=== PATIENT | female | born 1935 | race Caucasian/White ===

== ENCOUNTER 2018-06-09 15:43 | Observation (INO) | payer OTHER ==
--- NOTE | 2018-06-09 16:56 | PDOC ---
Attending Attestation - HPI HPI: 06/09/18 16:57 The patient is a 83 year old female, with a significant past medical history of iron deficiency anemia, HTN, GERD, COPD. failure to thrive, who presents to the emergency department with lab variance from [facility] (Hgb 6.6). The patient reports an approximate 20 pound weightloss over past 6 months which she attributes to adjusting to new food at the living facility. The patient denies chest pain, shortness of breath, headache and dizziness. The patient denies fever, chills, nausea, vomit, diarrhea and constipation. The patient denies dysuria, frequency, urgency and hematuria. Allergies: NKDA PCP - Dr. Amos - Physicial Exam PE: 06/09/18 17:23 GENERAL: The patient is in no acute distress. HEAD: Normal with no signs of trauma. EYES: (+) conjunctival pallor. PERRLA, EOMI, sclera anicteric, ENT: Ears normal, nares patent, oropharynx clear without exudates. Moist mucous membranes. NECK: Normal range of motion, supple without lymphadenopathy, JVD, or masses. LUNGS: Breath sounds equal, clear to auscultation bilaterally. No wheezes, and no crackles. HEART:Regular rate and rhythm, normal S1 and S2 without murmur, rub or gallop. ABDOMEN: Soft, nontender, normoactive bowel sounds. No guarding, no rebound. No masses palpable. EXTREMITIES: Normal range of motion, no edema. No clubbing or cyanosis. No erythema, or tenderness. NEUROLOGICAL: Cranial nerves II through XII grossly intact. Normal speech. No focal neurological deficits. MUSCULOSKELETAL: Back non-tender to palpation, no CVA tenderness SKIN: Warm, Dry, normal turgor, no rashes or lesions noted. <Alejandra Ng - Last Filed: 06/09/18 17:22> - Resident Resident Name: Hilary Espinoza - ED Attending Attestation I have performed the following: I have examined & evaluated the patient, The case was reviewed & discussed with the resident, I agree w/resident's findings & plan, Exceptions are as noted - Medical Decision Making 06/09/18 18:45 83 yo F resident of [facility] sent to the ER due to anemia Pt does not walk much so can not tell us if she is more weak No fevers or chills No chest pain She has a longstanding history of constipation, does not think she noticed dark stools HGB 6 at [facility] Will do: Labs Guiaic Will transfuse Will admit 06/09/18 18:47 Laboratory Tests 06/09/18 06/09/18 17:21 17:21 WBC 10.5 H Hgb 6.2 L* Hct 21.4 L Plt Count 397 INR 1.01 <Lisha De La Vega - Last Filed: 06/09/18 18:47> Attestations - Attestations 06/09/18 16:58 Documentation prepared by Alejandra Ng, acting as medical malpractice paralegal for Lisha De La Vega MD <Alejandra Ng - Last Filed: 06/09/18 17:22>
--- NOTE | 2018-06-09 17:37 | PDOC ---
History of Present Illness - General Chief Complaint: Revisit, Lab Variance Stated Complaint: ABNORMAL LABS Time Seen by Provider: 06/09/18 16:15 - History of Present Illness Initial Comments: 83yo F with PMH of HTN, GERD, Iron deficiency anemia, constipation, COPD, failure to thrive sent by [facility] for evaluation of low hemoglobin. Per paperwork, patient had low hemoglobin level of 6.8 today. Patient has no acute complaints. She is unable to remark very much on her medical history: "I don't remember medical things." She endorses no pain. Her last bowel movement was one week ago which is consistent with her history of constipation. She has not noted any blood, but does not remember the color of her stool. Patient does not know if she has ever been transfused before. She has had colonoscopies in the past and believes the results were normal. Patient reports a 20-30 pound weight loss over the past six months which she attributes to disliking the food at her custodial. Denies fevers, chills, chest pain, or shortness of breath. Past History - Past Medical History Allergies/Adverse Reactions: Allergies Allergy/AdvReac Type Severity Reaction Status Date / Time No Known Allergies Allergy Verified 06/09/18 15:55 Home Medications: Ambulatory Orders Albuterol 2.5/Ipratropium 0.5 [Duoneb -] 1 neb NEB Q8H PRN 06/09/18 Amlodipine Besylate 5 mg PO DAILY 06/09/18 Ascorbic Acid [Vitamin C -] 500 mg PO BID 06/09/18 Aspirin 81 mg PO DAILY 06/09/18 Carbamide Peroxide [Debrox] 15 ml DAILY 06/09/18 Cetirizine HCl [Allergy Relief] 10 mg PO DAILY 06/09/18 Docusate Sodium [Colace] 300 mg PO HS 06/09/18 Ferrous Sulfate 325 mg PO BID 06/09/18 Folic Acid 1 mg PO DAILY 06/09/18 Levothyroxine [Synthroid -] 25 mcg PO DAILY 06/09/18 Magnesium Hydroxide [Milk of Magnesia] 400 mg PO DAILY 06/09/18 Mirtazapine [Remeron -] 30 mg PO DAILY 06/09/18 Omeprazole Magnesium [Prilosec Otc] 20 mg PO DAILY 06/09/18 Polyethylene Glycol 3350 [Miralax 119 gm Btl -] 17 g PO BID 06/09/18 Potassium Chloride [K-Dur -] 20 meq BID 06/09/18 Sennosides [Senna] 8.6 mg PO DAILY 06/09/18 Sodium Chloride 1,000 mg PO Q6H 06/09/18 Anemia: Yes Cancer: Yes (esophagus) COPD: Yes GI Disorders: Yes HTN: Yes Thyroid Disease: Yes - Suicide/Smoking/Psychosocial Hx Smoking History: Never smoked Review of Systems - Review of Systems Comments:: Constitutional: no fever, +unintentional weight loss HEENT: no throat pain, no dysphagia Cardiovascular: no chest pain, no palpitations Respiratory: no cough, no shortness of breath Gastrointestinal: no abdominal pain, no nausea Genitourinary: no dysuria, no frequency Musculoskeletal: no myalgia, no arthralgia Skin: no rash, no itching Neurologic: no headache, no weakness *Physical Exam - Vital Signs Last Vital Signs Temp Pulse Resp BP Pulse Ox 98 F 87 18 105/75 100 06/09/18 16:02 06/09/18 16:02 06/09/18 16:02 06/09/18 16:02 06/09/18 16:02 - Physical Exam Comments: General: Awake, alert, and fully oriented, in no acute distress Head: No signs of trauma Eyes: EOMI, sclera anicteric ENT: Moist mucus membranes Neck: Normal ROM, supple Lungs: Rales present on the left, Clear to ascultation on the right Cardio: Regular rhythm, S1 and S2 present, grade 2 systolic murmur present Abdomen: Soft, nontender Extremities: Normal range of motion, Distal pulses present SKIN: Warm, Dry, normal turgor Neurologic: Cranial nerves II through XII grossly intact. Normal speech ED Treatment Course - LABORATORY CBC & Chemistry Diagram: 06/09/18 17:21 06/09/18 17:21 - RADIOLOGY Radiology Studies Ordered: Category Date Time Status CHEST X-RAY PORTABLE* [RAD] Stat Radiology 06/09/18 16:37 Taken Medical Decision Making - Medical Decision Making 83yo F with PMH of HTN, GERD, Iron deficiency anemia, constipation, COPD, failure to thrive sent by [facility] for evaluation of low hemoglobin. DDX including but not limited to low hemoglobin due to iron deficiency, GI bleed , malignancy CBC, CMP, TS, FOBT, Tpn EKG CXR 06/09/18 17:37 Hgb=6.2 with low MCV 2 units PRBC's ordered Mild leukocytosis, WBC=10.2 Tpn negative CXR without acute pathology, per radiology report FOBT negative Plan to admit 06/09/18 18:55 Discussed case with inpatient team who accepted patient for admission under Dr. Prado 06/09/18 19:56 Blood consent signed Second TS ordered Called patient's daughter, Jessica Paulson, ; awaiting callback Called sister, Kitty, ; awaiting callback 06/09/18 20:14 *DC/Admit/Observation/Transfer Diagnosis at time of Disposition: Low hemoglobin - Discharge Dispostion Condition at time of disposition: Guarded Decision to Admit order: Yes - Referrals - Patient Instructions - Post Discharge Activity
[2018-06-09 18:18] LABS: BASO % 1.3 % (0-2.0); EOS % 5.1 % (0-4.5); HEMATOCRIT 21.4 % (32.4-45.2); LYMPH % 14.8 % (8-40); MCHC 29.2 g/dl (32.0-36.0); MEAN CELL VOLUME 63.7 fl (80-96); MEAN PLT VOLUME 8.4 fl (7.5-11.1); MONO % 5.3 % (3.8-10.2); NEUT % 73.5 % (42.8-82.8); PLATELET COUNT 397 K/MM3 (134-434); RBC 3.35 M/mm3 (3.60-5.2); RDW 21.6 % (11.6-15.6); WHITE BLOOD COUNT 10.5 K/mm3 (4.0-10.0)
[2018-06-09 18:33] LABS: MCH 18.6 pg (25.7-33.7)
[2018-06-09 18:34] LABS: HEMOGLOBIN 6.2 GM/dL (10.7-15.3)
[2018-06-09 18:47] LABS: ALBUMIN 2.8 g/dl (3.4-5.0); ALK PHOS 67 U/L (45-117); ANION GAP 8 MMOL/L (8-16); BILIRUBIN,TOTAL 0.3 mg/dL (0.2-1); BLOOD UREA NITROGEN 15 mg/dL (7-18); CALCIUM 8.4 mg/dL (8.5-10.1); CHLORIDE 103 mmol/L (98-107); CO2 25 mmol/L (21-32); CREATININE 0.6 mg/dL (0.55-1.3); GLUCOSE,RANDOM 90 mg/dL (74-106); POTASSIUM 4.1 mmol/L (3.5-5.1); SGOT/AST 11 U/L (15-37); SGPT/ALT 10 U/L (13-61); SODIUM 135 mmol/L (136-145); TOT PROT 7.2 g/dl (6.4-8.2)
--- NOTE | 2018-06-09 20:32 | PDOC ---
*Physical Exam - Vital Signs Last Vital Signs Temp Pulse Resp BP Pulse Ox 98 F 87 18 105/75 100 06/09/18 16:02 06/09/18 16:02 06/09/18 16:02 06/09/18 16:02 06/09/18 16:02 - Physical Exam General Appearance: Yes: Nourished, Appropriately Dressed Respiratory/Chest: positive: Lungs Clear, Normal Breath Sounds Cardiovascular: positive: Regular Rhythm, Regular Rate, S1, S2 Heart Score/ECG Review #1 General ECG Interpretation: Sinus Rhythm, Normal Rate, Normal Intervals, No acute ischemic changes Compared to previous ECG there are: Other (frequent pvc.) ED Treatment Course - LABORATORY CBC & Chemistry Diagram: 06/09/18 17:21 06/09/18 17:21 - ADDITIONAL ORDERS Additional order review: Laboratory Results 06/09/18 06/09/18 06/09/18 17:30 17:30 17:21 PT with INR INR Sodium Potassium Chloride Carbon Dioxide Anion Gap BUN Creatinine Creat Clearance w eGFR Random Glucose Calcium Total Bilirubin AST ALT Alkaline Phosphatase Troponin I < 0.02 Total Protein Albumin Stool Occult Blood Negative Blood Type B POSITIVE Antibody Screen Negative Crossmatch See Detail 06/09/18 06/09/18 17:21 17:21 PT with INR 11.90 INR 1.01 Sodium 135 L Potassium 4.1 Chloride 103 Carbon Dioxide 25 Anion Gap 8 BUN 15 Creatinine 0.6 Creat Clearance w eGFR 95.71 Random Glucose 90 Calcium 8.4 L Total Bilirubin 0.3 AST 11 L ALT 10 L Alkaline Phosphatase 67 Troponin I Total Protein 7.2 Albumin 2.8 L Stool Occult Blood Blood Type Antibody Screen Crossmatch 06/09/18 17:21 RBC 3.35 L MCV 63.7 L MCHC 29.2 L RDW 21.6 H MPV 8.4 Neutrophils % 73.5 Lymphocytes % 14.8 Monocytes % 5.3 Eosinophils % 5.1 H Basophils % 1.3 Medical Decision Making - Medical Decision Making 06/09/18 20:30 message left for pt daughter , and sister, d/w pt pierce mckeon [phone] ok for admission and transfusions. *DC/Admit/Observation/Transfer Diagnosis at time of Disposition: Low hemoglobin - Discharge Dispostion Condition at time of disposition: Guarded - Referrals - Patient Instructions - Post Discharge Activity
[2018-06-09 20:40] LABS: ANISOCYTOSIS 2+
[2018-06-09 20:41] LABS: PLATELET ESTIMATE ADEQUATE; ROULEAU 2+
[2018-06-09] MEDS ORDERED: ALBUTEROL SO4 2.5/IPRATROPIUM 0.5 INH SOL 3 ML VIAL.NEB. NEB PRN (20:57)
--- NOTE | 2018-06-09 21:01 | HP ---
CHIEF COMPLAINT: anemia PCP: Dr. Amos HISTORY OF PRESENT ILLNESS: 83 y/o F from [facility] with PMH HAIDER (on ferrous sulfate), HTN, GERD, chronic constipation, COPD (not on home 02), FTT, who presents to the ED, after being sent by [facility] for "anemia" and Hb 6.6. As per ED staff, pt was sent to receive blood transfusion. While at her facility and here in the ED , pt endorses mild lightheadedness, however is predominantly asymptomatic. Without chest pain, pressure, palpitations, dizziness, and has not noted BRBPR, melena, or hemetemesis. Does endorse chronic bruising 2/2 skin fragility on her upper extremities that she has had "for years." Endorses colonoscopy 3-4 yrs prior and was told it was WNL. Is unsure whether she has ever had an EGD. Denies ever having received a blood transfusion in the past, however has had chronic anemia and has been on ferrous sulfate "for many years." Pt also endorses significant wt loss (20-30 lbs) in the last yr, which she attributes to emotional pain concerning her daughter, as well as poor appetite. At baseline, pt ambulates on her own. In her NH paperwork, states that she is allowed to ambulate in her room with supervision, and requires closer supervision when ambulating for longer distances. ER course was notable for: (1) H/H 6.2/21.4 (2) FOBT (-) (3) 2u PRBCs ordered by ED. however will give 1 Recent Travel: denies PAST MEDICAL HISTORY: as above PAST SURGICAL HISTORY: denies Social History: lives at [facility]. ambulates on own. used to work as a ward secretary in the past. Smoking: active smoker. <1ppd x 70 yrs Alcohol: socially Drugs: denies Family History: states that her parents passed from natural causes Allergies No Known Allergies Allergy (Verified 06/09/18 15:55) HOME MEDICATIONS: Home Medications Medication Instructions Recorded Albuterol 2.5/Ipratropium 0.5 1 neb NEB Q8H PRN 06/09/18 [Duoneb -] Amlodipine Besylate 5 mg PO DAILY 06/09/18 Ascorbic Acid [Vitamin C -] 500 mg PO BID 06/09/18 Aspirin 81 mg PO DAILY 06/09/18 Carbamide Peroxide [Debrox] 15 ml DAILY 06/09/18 Cetirizine HCl [Allergy Relief] 10 mg PO DAILY 06/09/18 Docusate Sodium [Colace] 300 mg PO HS 06/09/18 Ferrous Sulfate 325 mg PO BID 06/09/18 Folic Acid 1 mg PO DAILY 06/09/18 Levothyroxine [Synthroid -] 25 mcg PO DAILY 06/09/18 Magnesium Hydroxide [Milk of 400 mg PO DAILY 06/09/18 Magnesia] Mirtazapine [Remeron -] 30 mg PO DAILY 06/09/18 Omeprazole Magnesium [Prilosec Otc] 20 mg PO DAILY 06/09/18 Polyethylene Glycol 3350 [Miralax 17 g PO BID 06/09/18 119 gm Btl -] Potassium Chloride [K-Dur -] 20 meq BID 06/09/18 Sennosides [Senna] 8.6 mg PO DAILY 06/09/18 Sodium Chloride 1,000 mg PO Q6H 06/09/18 meds from the [facility] paperwork above REVIEW OF SYSTEMS CONSTITUTIONAL: +weight loss, lightheadedness, loss of appetite Absent: fever, chills, diaphoresis, generalized weakness, malaise HEENT: Absent: rhinorrhea, nasal congestion, throat pain, throat swelling, difficulty swallowing, mouth swelling, ear pain, eye pain, visual changes CARDIOVASCULAR: Absent: chest pain, syncope, palpitations, irregular heart rate, lightheadedness , peripheral edema RESPIRATORY: Absent: cough, shortness of breath, dyspnea with exertion, orthopnea, wheezing, stridor, hemoptysis GASTROINTESTINAL: Absent: abdominal pain, abdominal distension, nausea, vomiting, diarrhea, constipation, melena, hematochezia GENITOURINARY: Absent: dysuria, frequency, urgency, hesitancy, hematuria, flank pain, genital pain MUSCULOSKELETAL: Absent: myalgia, arthralgia, joint swelling, back pain, neck pain SKIN: Absent: rash, itching, pallor HEMATOLOGIC/IMMUNOLOGIC: Absent: easy bleeding, easy bruising, lymphadenopathy, frequent infections ENDOCRINE: Absent: unexplained weight gain, unexplained weight loss, heat intolerance, cold intolerance NEUROLOGIC: Absent: headache, focal weakness or paresthesias, dizziness, unsteady gait, seizure, mental status changes, bladder or bowel incontinence PSYCHIATRIC: Absent: anxiety, depression, suicidal or homicidal ideation, hallucinations. PHYSICAL EXAMINATION Vital Signs 06/09/18 16:02 Temperature 98 F Pulse Rate 87 Respiratory 18 Rate Blood Pressure 105/75 O2 Sat by Pulse 100 Oximetry (%) GENERAL: Pleasant, hard of hearing. AAO x2 (self, place) HEAD: Normal with no signs of trauma. EYES: Pupils equal, round and reactive to light, extraocular movements intact, sclera anicteric, conjunctiva clear. No pallor EARS, NOSE, THROAT: Ears normal, nares patent, oropharynx clear without exudates. Moist mucous membranes. NECK: Normal range of motion, supple LUNGS:+rales (L>R). no accessory m usage HEART: +systolic murmur appreciated RUSB ABDOMEN: Soft, nontender, not distended, normoactive bowel sounds, no guarding, no rebound, no masses. UPPER EXTREMITIES: 2+ radial pulses, well-perfused. No cyanosis. No clubbing. No peripheral edema. +chronic bruising UE LOWER EXTREMITIES: cachectic, 2+ pt pulses, well-perfused. No calf tenderness. No peripheral edema. NEUROLOGICAL: Cranial nerves II-XII intact. Normal speech. Normal gait. sensation intact PSYCHIATRIC: Cooperative. Good eye contact. SKIN: Warm, dry. skin fragility Laboratory Tests 06/09/18 06/09/18 06/09/18 17:21 17:21 17:21 WBC 10.5 H Hgb 6.2 L* Hct 21.4 L Plt Count 397 Hypochromia 3+ Microcytosis 2+ Sodium 135 L Potassium 4.1 Chloride 103 Carbon Dioxide 25 BUN 15 Creatinine 0.6 Random Glucose 90 AST 11 L ALT 10 L Troponin I < 0.02 Albumin 2.8 L Stool Occult Blood 06/09/18 17:30 Chloride Albumin Stool Occult Blood Negative CXR: without acute pathology EKG: requested, pending ASSESSMENT/PLAN: 83 y/o F from [facility] with PMH HAIDER (on ferrous sulfate), HTN, GERD, chronic constipation, COPD (not on home 02), FTT, who presents to the ED, after being sent by [facility] for "anemia" and Hb 6.6. #Microcytic anemia -without evidence of acute blood loss. appears chronic, likely 2/2 HAIDER -FOBT (-) -T+S -Hb 6.2; will give 1u PRBCs and trend H/H. -transfusion threshold Hb<7 -will give venofer x 2 (,Fr) prior to d/c -recommend venofer for outpt infusions instead of ferrous sulfate PO #Anemia in setting of wt loss -recommend outpt onc w/u to determine cause -will consult onc (Dr. Porras), GI () to aid in determination of etiology. -FOBT (-) -last colonoscopy 3-4 yrs prior, may need additional testing #HTN- controlled -hold amlodipine for now to avoid hypotension can restart once improves #GERD -c/w prilosec #chronic constipation -likely 2/2 chronic iron intake -c/w miralax #COPD -currently not in exacerbation -c/w duonebs PRN #FTT -also w/ decreased albumin, significant wt loss -will need onc w/u -will consult dietary to aid in supplementation. #F/E/N IVF not required at this time continue to follow lytes NPO for now, can start diet in AM #PPX DVT: SCD's GI: on prilosec #Code status DNR/DNI, "comfort care" as from [facility] paperwork [facility] paperwork also notes "do not hospitalize" however ED provider Dr. Garsia has d/w family who approves admission and transfusion HCP: Kityt (sister): [phone] #Dispo med-surg obs anticipate d/c in next 24-48hrs after receiving blood, if counts stay stable and if pt asymptomatic. further w/u can also be done as outpt. Visit type - Emergency Visit Emergency Visit: Yes ED Registration Date: 06/09/18 Care time: The patient presented to the Emergency Department on the above date and was hospitalized for further evaluation of their emergent condition. - New Patient This patient is new to me today: Yes Date on this admission: 06/10/18 - Critical Care Critical Care patient: No
--- NOTE | 2018-06-09 21:17 | PN ---
Teaching Attending Note Name of Resident: Mari Grier ATTENDING PHYSICIAN STATEMENT I saw and evaluated the patient. I reviewed the resident's note and discussed the case with the resident. I agree with the resident's findings and plan as documented. SUBJECTIVE: Patient is an 83 year old woman with PMH of HTN, GERD, Iron deficiency anemia, constipation (on FeSO4), COPD, hypothyroidism and failure to thrive sent by [facility] for evaluation of low hemoglobin. Per paperwork, patient had low hemoglobin level of 6.8 today. Patient has no acute complaints. She is unable to remark very much on her medical history: "I don't remember medical things." Her last bowel movement was one week ago which is consistent with her history of constipation. She has not noted any blood, but does not remember the color of her stool. Patient does not know if she has ever been transfused before. She has had colonoscopies in the past and believes the results were normal. Patient reports a 20-30 pound unintentional weight loss over the past six months which she attributes to disliking the food at her [facility] and stress from family strife. Has mild dizziness and poor memory. Denies fevers, chills, chest pain, or shortness of breath. OBJECTIVE: Alert Vital Signs Period Temp Pulse Resp BP Sys/Jaimes Pulse Ox Last 24 Hr 98 F 87 18 105/75 100 HEENT: No Jaundice, eye redness or discharge, PERRLA, EOMI. Conjuctival pallor; Normocephalic, atraumatic. External ears are normal and hearing is grossly intact. No nasal discharge. Neck: Supple, nontender. No palpable adenopathy or thyromegaly. No JVD Chest: Good effort. Clear to auscultation and percussion. Heart: Regular. No S3 or rub; 2/6 NORA Abdomen: Not distended, soft, nontender and no HSM. No rebound or guarding. Normal bowel sounds. Ext: Peripheral pulses intact. No leg edema. Skin: Warm and dry. No petechiae, rash or ecchymosis. Neuro: Alert. Oriented x3. CN 2-12 grossly intact. Sensation grossly intact in all four extremities and DTR are symmetric. Psych: Appropriate mood and affect. Good insight. Current Medications Generic Name Dose Route Start Last Admin Trade Name Freq PRN Reason Stop Dose Admin Albuterol/Ipratropium amp 06/09/18 20:57 Duoneb - NEB Q8H PRN SHORTNESS OF BREATH Docusate Sodium 300 mg 06/09/18 22:00 Colace - PO HS [facility] Folic Acid 1 mg 06/10/18 10:00 Folic Acid - PO DAILY PRICILA Iron Sucrose 300 mg/ Sodium 250 mls @ 250 mls/hr 06/10/18 10:00 Chloride IVPB 06/10/18 10:59 ONCE ONE Iron Sucrose 300 mg/ Sodium 250 mls @ 250 mls/hr 06/11/18 10:00 Chloride IVPB 06/11/18 10:59 ONCE ONE Levothyroxine Sodium 25 mcg 06/10/18 10:00 Synthroid - PO DAILY [facility] Non-Formulary Medication 20 mg 06/10/18 10:00 Omeprazole Magnesium [Prilosec Otc] PO DAILY [facility] Polyethylene Glycol 17 gm 06/09/18 22:00 Miralax (For Daily Use) - PO BID [facility] Potassium Chloride 20 meq 06/09/18 22:00 K-Dur - PO BID [facility] Senna tab 06/10/18 10:00 Senna - PO DAILY [facility] Home Medications Medication Instructions Recorded Albuterol 2.5/Ipratropium 0.5 1 neb NEB Q8H PRN 06/09/18 [Duoneb -] Amlodipine Besylate 5 mg PO DAILY 06/09/18 Ascorbic Acid [Vitamin C -] 500 mg PO BID 06/09/18 Aspirin 81 mg PO DAILY 06/09/18 Carbamide Peroxide [Debrox] 15 ml DAILY 06/09/18 Cetirizine HCl [Allergy Relief] 10 mg PO DAILY 06/09/18 Docusate Sodium [Colace] 300 mg PO HS 06/09/18 Ferrous Sulfate 325 mg PO BID 06/09/18 Folic Acid 1 mg PO DAILY 06/09/18 Levothyroxine [Synthroid -] 25 mcg PO DAILY 06/09/18 Magnesium Hydroxide [Milk of 400 mg PO DAILY 06/09/18 Magnesia] Mirtazapine [Remeron -] 30 mg PO DAILY 06/09/18 Omeprazole Magnesium [Prilosec Otc] 20 mg PO DAILY 06/09/18 Polyethylene Glycol 3350 [Miralax 17 g PO BID 06/09/18 119 gm Btl -] Potassium Chloride [K-Dur -] 20 meq BID 06/09/18 Sennosides [Senna] 8.6 mg PO DAILY 06/09/18 Sodium Chloride 1,000 mg PO Q6H 06/09/18 Abnormal Lab Results 06/09/18 06/09/18 06/09/18 17:21 17:21 17:30 WBC 10.5 H RBC 3.35 L Hgb 6.2 L* Hct 21.4 L MCV 63.7 L MCH 18.6 L MCHC 29.2 L RDW 21.6 H Eosinophils % 5.1 H Sodium 135 L Calcium 8.4 L AST 11 L ALT 10 L Albumin 2.8 L Crossmatch See Detail ASSESSMENT AND PLAN: 1. Severe Low MCV Anemia - It is not clear when her Fe def anemia was diagnosed and the extent of prior workup to ascertain cause of the iron deficiency. She should be getting IV iron "regurlarly" to preepmt blood transfusion if she indeed is confirmed to have Fe def. Will give 1 unit PRBC and then IV Venofer 500 mg x 2 doses. Consult hematology/oncology, both for anemia and weight loss ( ?cancer). Discontinue FeSO4, folic acid, colace, Vitamin C and treat her with an enema and miralax bid. Check TFTs and serial stool guaiacs. Consult GI. No ST -T wave changes on EKG. 2. Hypoalbuminemia - Possibly due to combined effects of malnutrition and inflammation associated with comorbid chronic conditions. Will ensure adequate dietary protein intake and also consult polisher brass. 3. Tobacco Use Counseled on risks associated with tobacco use. We will provide patient all the necessary assistance to facilitate smoking cessation and prescribe Nicotine patch. 4. Hypertension? - Unclear why she is getting Nacl tablets whle being treatd for hypertension. Will clarify with the NH. Restart outpatient antihypertensive drugs when clinically appropriate. Nonpharmacologic measures to control hypertension like weight loss, salt restriction and exercise discussed. 5. DVT prophylaxis - Lovenox 40 mg SQ q 24 hours. 6. Advance directives - Full code
[2018-06-09 21:22] LABS: INR 1.03 (0.83-1.09); PROTHROMBIN TIME (PATIENT) 12.2 SEC (9.7-13.0)
[2018-06-09 21:24] LABS: ACTIVATED PTT 19.7 SECONDS (25.2-36.5)
[2018-06-09] MEDS ORDERED: POTASSIUM CHLORIDE TABS 10 MEQ TABLET.ER (FP) ONE (21:36)
[2018-06-09] MEDS: POTASSIUM CHLORIDE TABS 20 MEQ TABLET.ER (FP) PO SCH (21:36)
[2018-06-09] MEDS ORDERED: DOCUSATE SODIUM 100 MG CAPSULE (FP) PO SCH (22:00)
[2018-06-10] MEDS: POLYETHYLENE GLYCOL 3350 119 GM BTL PO SCH ×2 (01:53→09:36)
[2018-06-10 02:03] VITALS: BMI 20.2
[2018-06-10 06:52] LABS: BASO % 1.6 % (0-2.0); EOS % 5.7 % (0-4.5); HEMATOCRIT 25.5 % (32.4-45.2); HEMOGLOBIN 7.9 GM/dL (10.7-15.3); LYMPH % 17.3 % (8-40); MCHC 31.2 g/dl (32.0-36.0); MEAN CELL VOLUME 67.4 fl (80-96); MEAN PLT VOLUME 7.4 fl (7.5-11.1); MONO % 9.2 % (3.8-10.2); NEUT % 66.2 % (42.8-82.8); PLATELET COUNT 465 K/MM3 (134-434); RBC 3.78 M/mm3 (3.60-5.2); RDW 25.3 % (11.6-15.6); WHITE BLOOD COUNT 8.8 K/mm3 (4.0-10.0)
[2018-06-10] MEDS ORDERED: LEVOTHYROXINE NA 25 MCG TABLET (FP) PO SCH (07:00)
[2018-06-10 07:31] LABS: ANION GAP 7 MMOL/L (8-16); BLOOD UREA NITROGEN 16 mg/dL (7-18); CALCIUM 8.4 mg/dL (8.5-10.1); CHLORIDE 104 mmol/L (98-107); CO2 25 mmol/L (21-32); CREATININE 0.6 mg/dL (0.55-1.3); GLUCOSE,RANDOM 84 mg/dL (74-106); MAGNESIUM 1.9 mg/dL (1.8-2.4); PHOSPHOROUS 3.2 mg/dL (2.5-4.9); SODIUM 135 mmol/L (136-145)
--- NOTE | 2018-06-10 09:18 | DS ---
Physical Exam: SUBJECTIVE: Patient seen and examined. She would like to go home. OBJECTIVE: Vital Signs Period Temp Pulse Resp BP Sys/Jaimes Pulse Ox Last 24 Hr 98 F-98.4 F 72-87 18-20 102-127/75-90 97-100 PHYSICAL EXAM The patient refused physical exam. LABS Laboratory Results - last 24 hr 06/09/18 06/09/18 06/09/18 17:21 17:21 17:21 WBC 10.5 H RBC 3.35 L Hgb 6.2 L* Hct 21.4 L MCV 63.7 L MCH 18.6 L MCHC 29.2 L RDW 21.6 H Plt Count 397 MPV 8.4 Absolute Neuts (auto) 7.7 Neutrophils % 73.5 Lymphocytes % 14.8 Monocytes % 5.3 Eosinophils % 5.1 H Basophils % 1.3 Nucleated RBC % 0 Hypochromia 3+ Platelet Estimate Adequate Anisocytosis 2+ Microcytosis 2+ Rouleaux 2+ PT with INR 12.20 INR 1.03 PTT (Actin FS) 19.7 L Sodium 135 L Potassium 4.1 Chloride 103 Carbon Dioxide 25 Anion Gap 8 BUN 15 Creatinine 0.6 Creat Clearance w eGFR 95.71 Random Glucose 90 Calcium 8.4 L Phosphorus Magnesium Total Bilirubin 0.3 AST 11 L ALT 10 L Alkaline Phosphatase 67 Troponin I Total Protein 7.2 Albumin 2.8 L Stool Occult Blood Blood Type Antibody Screen Crossmatch 06/09/18 06/09/18 06/09/18 17:21 17:30 17:30 WBC RBC Hgb Hct MCV MCH MCHC RDW Plt Count MPV Absolute Neuts (auto) Neutrophils % Lymphocytes % Monocytes % Eosinophils % Basophils % Nucleated RBC % Hypochromia Platelet Estimate Anisocytosis Microcytosis Rouleaux PT with INR INR PTT (Actin FS) Sodium Potassium Chloride Carbon Dioxide Anion Gap BUN Creatinine Creat Clearance w eGFR Random Glucose Calcium Phosphorus Magnesium Total Bilirubin AST ALT Alkaline Phosphatase Troponin I < 0.02 Total Protein Albumin Stool Occult Blood Negative Blood Type B POSITIVE Antibody Screen Negative Crossmatch See Detail 06/09/18 06/09/18 06/10/18 21:05 21:05 06:00 WBC RBC Hgb Hct MCV MCH MCHC RDW Plt Count MPV Absolute Neuts (auto) Neutrophils % Lymphocytes % Monocytes % Eosinophils % Basophils % Nucleated RBC % Hypochromia Platelet Estimate Anisocytosis Microcytosis Rouleaux PT with INR INR PTT (Actin FS) Sodium 135 L Potassium 4.0 Chloride 104 Carbon Dioxide 25 Anion Gap 7 L BUN 16 Creatinine 0.6 Creat Clearance w eGFR 95.71 Random Glucose 84 Calcium 8.4 L Phosphorus 3.2 Magnesium 1.9 Total Bilirubin AST ALT Alkaline Phosphatase Troponin I Total Protein Albumin Stool Occult Blood Blood Type B POSITIVE Cancelled Antibody Screen Cancelled Crossmatch 06/10/18 06:00 WBC 8.8 RBC 3.78 Hgb 7.9 L Hct 25.5 L D MCV 67.4 L MCH 21.0 L D MCHC 31.2 L RDW 25.3 H Plt Count 465 H MPV 7.4 L D Absolute Neuts (auto) 5.8 Neutrophils % 66.2 Lymphocytes % 17.3 Monocytes % 9.2 Eosinophils % 5.7 H Basophils % 1.6 Nucleated RBC % 0 Hypochromia Platelet Estimate Anisocytosis Microcytosis Rouleaux PT with INR INR PTT (Actin FS) Sodium Potassium Chloride Carbon Dioxide Anion Gap BUN Creatinine Creat Clearance w eGFR Random Glucose Calcium Phosphorus Magnesium Total Bilirubin AST ALT Alkaline Phosphatase Troponin I Total Protein Albumin Stool Occult Blood Blood Type Antibody Screen Crossmatch HOSPITAL COURSE: Date of Admission:06/09/18 83 y/o F from [facility] [place] with PMH of esophageal cancer, 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 The patient was admitted for anemia, PRBC was ordered as well as iron. The patient however expressed that she doesn't want to stay in the hospital. She stated that she is "83 year old and wants to be left alone". She also didn't want want any interventions like transfusions, endoscopies.The patient presented with MOLST-confirmed no wish for hospitalization. Family was notified, spoke to her health care proxy- niece and the patient was discharged back to [facility]. She verbalized understanding. Minutes to complete discharge: 30 Discharge Summary Reason For Visit: LOW HEMOGLOBIN Current Active Problems Low hemoglobin (Acute) Condition: Stable - Instructions Diet, Activity, Other Instructions: You were admitted for anemia. You received 1 unit of blood with response. Strongly advise PALLIATIVE CARE follow up at the [facility], to discuss your goals of care as you clearly expressed wish to not be hospitalized and declined any further testing or intervention and wanted to be comfortable. Advise stopping your Aspirin for now. Take other medications as before. If you wish, you can follow up with your primary care doctor to monitor your blood counts and further treatment. If you have dizziness, chest pain, palpitations or worsening of any of your symptoms, come back to Emergency Room as soon as possible. Referrals: Vince Amos MD [Primary Care Provider] - (Please follow up CBC for anemia.) Disposition: [facility] - Home Medications Comprehensive Discharge Medication List: Ambulatory Orders Albuterol 2.5/Ipratropium 0.5 [Duoneb -] 1 neb NEB Q8H PRN 06/09/18 Amlodipine Besylate 5 mg PO DAILY 06/09/18 Ascorbic Acid [Vitamin C -] 500 mg PO BID 06/09/18 Aspirin 81 mg PO DAILY 06/09/18 Carbamide Peroxide [Debrox] 15 ml DAILY 06/09/18 Cetirizine HCl [Allergy Relief] 10 mg PO DAILY 06/09/18 Docusate Sodium [Colace] 300 mg PO HS 06/09/18 Ferrous Sulfate 325 mg PO BID 06/09/18 Folic Acid 1 mg PO DAILY 06/09/18 Levothyroxine [Synthroid -] 25 mcg PO DAILY 06/09/18 Magnesium Hydroxide [Milk of Magnesia] 400 mg PO DAILY 06/09/18 Mirtazapine [Remeron -] 30 mg PO DAILY 06/09/18 Omeprazole Magnesium [Prilosec Otc] 20 mg PO DAILY 06/09/18 Polyethylene Glycol 3350 [Miralax 119 gm Btl -] 17 g PO BID 06/09/18 Potassium Chloride [K-Dur -] 20 meq BID 06/09/18 Sennosides [Senna] 8.6 mg PO DAILY 06/09/18 Sodium Chloride 1,000 mg PO Q6H 06/09/18 Problem List - Problems (1) Low hemoglobin Code(s): D64.9 - ANEMIA, UNSPECIFIED (2) Anemia Code(s): D64.9 - ANEMIA, UNSPECIFIED This patient is new to me today: Yes Date on this admission: 06/10/18 Emergency Visit: Yes ED Registration Date: 04/10/19 Care time: The patient presented to the Emergency Department on the above date and was hospitalized for further evaluation of their emergent condition. Critical Care patient: No - Discharge Referral [facility]erred to [facility] No
[2018-06-10] MEDS: POTASSIUM CHLORIDE TABS 20 MEQ TABLET.ER (FP) PO SCH (09:36)
--- NOTE | 2018-06-10 09:48 | PN ---
Teaching Attending Note Name of Resident: Debra Santos ATTENDING PHYSICIAN STATEMENT I saw and evaluated the patient. I reviewed the resident's note and discussed the case with the resident. I agree with the resident's findings and plan as documented with exceptions below. SUBJECTIVE: Patient seen and examined. AAOx3, sitting at the edge of bed, awaiting breakfast , denies any pain, dizziness or weakness. Eager to go back to her NH. Strongly states does not want any additional testing of wanting to be in the hospital. OBJECTIVE: Vital Signs Period Temp Pulse Resp BP Sys/Jaimes Pulse Ox Last 24 Hr 98 F-98.4 F 72-87 18-20 102-127/75-90 97-100 Intake & Output 06/07/18 06/08/18 06/09/18 06/10/18 23:59 23:59 23:59 23:59 Intake Total 450 Balance 450 Weight 114 lb 111 lb General:sitting in bed in no acute distress, positive pallor, AAOx3 Chest: CTAB, no rales or wheezing Abdomen;Soft, NT, nD Extremities: no edema Home Medications Medication Instructions Recorded Albuterol 2.5/Ipratropium 0.5 1 neb NEB Q8H PRN 06/09/18 [Duoneb -] Amlodipine Besylate 5 mg PO DAILY 06/09/18 Ascorbic Acid [Vitamin C -] 500 mg PO BID 06/09/18 Aspirin 81 mg PO DAILY 06/09/18 Carbamide Peroxide [Debrox] 15 ml DAILY 06/09/18 Cetirizine HCl [Allergy Relief] 10 mg PO DAILY 06/09/18 Docusate Sodium [Colace] 300 mg PO HS 06/09/18 Ferrous Sulfate 325 mg PO BID 06/09/18 Folic Acid 1 mg PO DAILY 06/09/18 Levothyroxine [Synthroid -] 25 mcg PO DAILY 06/09/18 Magnesium Hydroxide [Milk of 400 mg PO DAILY 06/09/18 Magnesia] Mirtazapine [Remeron -] 30 mg PO DAILY 06/09/18 Omeprazole Magnesium [Prilosec Otc] 20 mg PO DAILY 06/09/18 Polyethylene Glycol 3350 [Miralax 17 g PO BID 06/09/18 119 gm Btl -] Potassium Chloride [K-Dur -] 20 meq BID 06/09/18 Sennosides [Senna] 8.6 mg PO DAILY 06/09/18 Sodium Chloride 1,000 mg PO Q6H 06/09/18 Active Medications Albuterol/Ipratropium (Duoneb -) 1 amp NEB Q8H PRN PRN Reason: SHORTNESS OF BREATH Iron Sucrose 300 mg/ Sodium (Chloride) 250 mls @ 250 mls/hr IVPB ONCE ONE Stop: 06/10/18 10:59 Last Admin: 06/10/18 09:36 Dose: 250 mls/hr Iron Sucrose 300 mg/ Sodium (Chloride) 250 mls @ 250 mls/hr IVPB ONCE ONE Stop: 06/11/18 10:59 Levothyroxine Sodium (Synthroid -) 25 mcg PO AM [facility] Last Admin: 06/10/18 06:22 Dose: 25 mcg Pantoprazole Sodium (Protonix -) 20 mg PO DAILY [facility] Last Admin: 06/10/18 09:36 Dose: 20 mg Polyethylene Glycol (Miralax (For Daily Use) -) 17 gm PO BID [facility] Last Admin: 06/10/18 09:36 Dose: 17 grams Potassium Chloride (K-Dur -) 20 meq PO BID [facility] Last Admin: 06/10/18 09:36 Dose: 20 meq Laboratory Results - last 24 hr 06/09/18 06/09/18 06/09/18 17:21 17:21 17:21 WBC 10.5 H RBC 3.35 L Hgb 6.2 L* Hct 21.4 L MCV 63.7 L MCH 18.6 L MCHC 29.2 L RDW 21.6 H Plt Count 397 MPV 8.4 Absolute Neuts (auto) 7.7 Neutrophils % 73.5 Lymphocytes % 14.8 Monocytes % 5.3 Eosinophils % 5.1 H Basophils % 1.3 Nucleated RBC % 0 Hypochromia 3+ Platelet Estimate Adequate Anisocytosis 2+ Microcytosis 2+ Rouleaux 2+ PT with INR 12.20 INR 1.03 PTT (Actin FS) 19.7 L Sodium 135 L Potassium 4.1 Chloride 103 Carbon Dioxide 25 Anion Gap 8 BUN 15 Creatinine 0.6 Creat Clearance w eGFR 95.71 Random Glucose 90 Calcium 8.4 L Phosphorus Magnesium Total Bilirubin 0.3 AST 11 L ALT 10 L Alkaline Phosphatase 67 Troponin I Total Protein 7.2 Albumin 2.8 L Stool Occult Blood Blood Type Antibody Screen Crossmatch 06/09/18 06/09/18 06/09/18 17:21 17:30 17:30 WBC RBC Hgb Hct MCV MCH MCHC RDW Plt Count MPV Absolute Neuts (auto) Neutrophils % Lymphocytes % Monocytes % Eosinophils % Basophils % Nucleated RBC % Hypochromia Platelet Estimate Anisocytosis Microcytosis Rouleaux PT with INR INR PTT (Actin FS) Sodium Potassium Chloride Carbon Dioxide Anion Gap BUN Creatinine Creat Clearance w eGFR Random Glucose Calcium Phosphorus Magnesium Total Bilirubin AST ALT Alkaline Phosphatase Troponin I < 0.02 Total Protein Albumin Stool Occult Blood Negative Blood Type B POSITIVE Antibody Screen Negative Crossmatch See Detail 06/09/18 06/09/18 06/10/18 21:05 21:05 06:00 WBC RBC Hgb Hct MCV MCH MCHC RDW Plt Count MPV Absolute Neuts (auto) Neutrophils % Lymphocytes % Monocytes % Eosinophils % Basophils % Nucleated RBC % Hypochromia Platelet Estimate Anisocytosis Microcytosis Rouleaux PT with INR INR PTT (Actin FS) Sodium 135 L Potassium 4.0 Chloride 104 Carbon Dioxide 25 Anion Gap 7 L BUN 16 Creatinine 0.6 Creat Clearance w eGFR 95.71 Random Glucose 84 Calcium 8.4 L Phosphorus 3.2 Magnesium 1.9 Total Bilirubin AST ALT Alkaline Phosphatase Troponin I Total Protein Albumin Stool Occult Blood Blood Type B POSITIVE Cancelled Antibody Screen Cancelled Crossmatch 06/10/18 06:00 WBC 8.8 RBC 3.78 Hgb 7.9 L Hct 25.5 L D MCV 67.4 L MCH 21.0 L D MCHC 31.2 L RDW 25.3 H Plt Count 465 H MPV 7.4 L D Absolute Neuts (auto) 5.8 Neutrophils % 66.2 Lymphocytes % 17.3 Monocytes % 9.2 Eosinophils % 5.7 H Basophils % 1.6 Nucleated RBC % 0 Hypochromia Platelet Estimate Anisocytosis Microcytosis Rouleaux PT with INR INR PTT (Actin FS) Sodium Potassium Chloride Carbon Dioxide Anion Gap BUN Creatinine Creat Clearance w eGFR Random Glucose Calcium Phosphorus Magnesium Total Bilirubin AST ALT Alkaline Phosphatase Troponin I Total Protein Albumin Stool Occult Blood Blood Type Antibody Screen Crossmatch ASSESSMENT AND PLAN: 83 yof with PMHx of HAIDER (on ferrous sulfate), HTN, GERD, chronic constipation, COPD (not on home 02), FTT, Esphageal Ca (per sister) admitted with severe anemia and failure to thrive. -Severe iron deficiency anemia, nutritonal, eso cancer +/- PUD vs occult blood loss Lower GI tract (mass/AVM/diverticular) -Reported h/o esophageal Cancer -HTN -GERD -COPD not on home oxygen Plan: Patient awake, OX3, clearly states wants to go back to [place] and does not wish to be in the hospital. "I'm 83, please let me be, its Ok if I cannot be 84" Able to relay full understanding that is in the hospital for anemia but refuses further transfusion, testing and understands risks including ongoing bleed, mass and . Sister contacted, reported patient with h/o esophageal cancer, but declined further treatment. They plan to have family meeting with patient at [place] tomorrow to address goals of care. Patient has a MOLST that confirms her wishes to not be hospitalized and wishes to return back to [place] and be comfortable. Advised palliative care follow up at the [place] and transition to hospice respecting patient's wishes and advance directives. Discussed with Social work/CM. Palliative care input inpatient vs at [place] Dispo d/c back to [facility] with palliative care follow up and likely transition to hospice. Plan discussed with nursing.
[2018-06-10] MEDS ORDERED: SENNOSIDES 8.6MG TABLET (FP) PO SCH (10:00)
[2018-06-10] MEDS ORDERED: IRON SUCROSE INJECTION 300 MG in SODIUM CHLORIDE 235 ML IVPB ONE (10:00)
[2018-06-10] MEDS ORDERED: PANTOPRAZOLE 20 MG TABLET (FP) PO SCH (10:00)
[2018-06-10] MEDS ORDERED: FOLIC ACID 1 MG TABLET (FP) PO SCH (10:00)
[2018-06-10 13:38] VITALS: BP 139/67; PULSE 86; TEMP 97.6
--- NOTE | 2018-06-10 16:06 | PN ---
Progress Note (short form) - Note Progress Note: Came to see patient. Was dischared prior to evaluation as she reuested to be sent back to the [place] and not have further testing performed.
--- NOTE | 2018-06-10 16:36 | EKG ---
Test Reason : Blood Pressure : / mmHG Vent. Rate : 093 BPM Atrial Rate : 093 BPM P-R Int : 170 ms QRS Dur : 068 ms QT Int : 362 ms P-R-T Axes : 071 036 082 degrees QTc Int : 450 ms SINUS RHYTHM WITH FREQUENT PREMATURE VENTRICULAR COMPLEXES OTHERWISE NORMAL ECG NO PREVIOUS ECGS AVAILABLE Confirmed by NICOLE CR, ANATOLIY ([id number]) on 06/10/2018 4:35:54 PM Referred By: Confirmed By:ANATOLIY RIVERA MD
[2018-06-11] MEDS ORDERED: IRON SUCROSE INJECTION 300 MG in SODIUM CHLORIDE 235 ML IVPB ONE (10:00)
== END 2018-06-10 14:23 ==
LOC: JER 15:43 → JERBED 19:45 → J7W 23:52
PROVIDERS: ADMIT Internal Medicine; ATTEND Hospitalist
PROC: 3E033GC Introduction of Other Therapeutic Substance into Peripheral Vein, Percutaneous Approach (ICD-10-PCS; principal; 2018-06-09)
DX: D50.9 Iron deficiency anemia, unspecified (principal); I10 Essential (primary) hypertension; K21.9 Gastro-esophageal reflux disease without esophagitis; J44.9 Chronic obstructive pulmonary disease, unspecified; K59.00 Constipation, unspecified; E88.09 Other disorders of plasma-protein metabolism, not elsewhere classified; D72.829 Elevated white blood cell count, unspecified; R62.7 Adult failure to thrive; Z68.20 Body mass index [BMI] 20.0-20.9, adult; Z85.01 Personal history of malignant neoplasm of esophagus; Z79.82 Long term (current) use of aspirin
CPT/HCPCS: 36415; 36430; 36511; 71045-TC-FY; 80048; 80053; 82272; 83735; 84100; 84484; 85025; 85610; 85730; 86850; 86900; 86901; 86922; 93005; 93010; 96365; 99283-25; G0378; J1756; P9038; P9058

== ENCOUNTER 2018-10-15 10:45 | Day surgery (SDC) | payer OTHER ==
[2018-10-15 12:49] LABS: HEMATOCRIT 24.8 % (32.4-45.2); HEMOGLOBIN 7.6 GM/dL (10.7-15.3); MCH 20.3 pg (25.7-33.7); MCHC 30.7 g/dl (32.0-36.0); MEAN CELL VOLUME 66.4 fl (80-96); MEAN PLT VOLUME 7.3 fl (7.5-11.1); PLATELET COUNT 555 K/MM3 (134-434); RBC 3.74 M/mm3 (3.60-5.2); RDW 17.2 % (11.6-15.6); WHITE BLOOD COUNT 8.4 K/mm3 (4.0-10.0)
[2018-10-15 13:20] LABS: ALBUMIN 2.9 g/dl (3.4-5.0); BILIRUBIN,TOTAL 0.4 mg/dL (0.2-1); BLOOD UREA NITROGEN 18.8 mg/dL (7-18); CALCIUM 9.3 mg/dL (8.5-10.1); CREATININE 0.8 mg/dL (0.55-1.3); POTASSIUM 4.8 mmol/L (3.5-5.1); TOT PROT 8.1 g/dl (6.4-8.2)
[2018-10-15 14:44] VITALS: BP 117/49; PULSE 76; TEMP 98.4
== END 2018-10-15 16:40 ==
LOC: J7W 10:45 → JBLOOD 10:45
PROVIDERS: ATTEND Internal Medicine Geriatric Medicine
DX: Z53.8 Procedure and treatment not carried out for other reasons (principal)
CPT/HCPCS: 36415; 80053; 85027; 86850; 86900; 86901; 86922

== ENCOUNTER 2018-10-25 10:23 | Observation (INO) | payer OTHER ==
[2018-10-25] MEDS ORDERED: METOCLOPRAMIDE HCL INJECTION 10 MG/2 ML VIAL IVPB ONE (11:23)
[2018-10-25] MEDS ORDERED: ONDANSETRON 4 MG/2 ML VIAL IVPUSH ONE (11:23)
[2018-10-25] MEDS ORDERED: METOCLOPRAMIDE HCL INJECTION 10 MG/2 ML VIAL ONE (11:26)
[2018-10-25] MEDS ORDERED: ONDANSETRON 4 MG/2 ML VIAL ONE (11:26)
[2018-10-25 11:35] LABS: BASO % 1.1 % (0-2.0); EOS % 0.2 % (0-4.5); HEMATOCRIT 22.2 % (32.4-45.2); LYMPH % 7.6 % (8-40); MCH 20.1 pg (25.7-33.7); MCHC 30.7 g/dl (32.0-36.0); MEAN CELL VOLUME 65.3 fl (80-96); MEAN PLT VOLUME 7.3 fl (7.5-11.1); MONO % 5.3 % (3.8-10.2); NEUT % 85.8 % (42.8-82.8); PLATELET COUNT 547 K/MM3 (134-434); RDW 17.2 % (11.6-15.6); WHITE BLOOD COUNT 10.4 K/mm3 (4.0-10.0)
[2018-10-25] MEDS ORDERED: SODIUM CHLORIDE 0.9% 500 ML INFUS.BAG IV ONE (11:46)
--- NOTE | 2018-10-25 11:58 | PDOC ---
History of Present Illness - General Chief Complaint: Nausea/Vomiting Stated Complaint: Blood Transfusion Time Seen by Provider: 10/25/18 11:04 History Source: Patient, [facility] Records - History of Present Illness Initial Comments: 83 y/o/f resident of [facility] with PMHx of Iron deficiency anemia, HTN, GERD, and COPD sent here for complaints of not feeling well. As per [facility] the patient had bloodwork done on 10/15 which showed a hemoglobin of about 7. Patient refused blood transfusion at that time. As per [facility] today the patient stated that she did not feel well and wanted to get a blood transfusion now. Patient complains of being cold and vomited once during interview. She states that she vomits often. She also complains of constipation and states she has a bowel movement once a week. She denies chest pain, abd pain, dysuria, cough, diarrhea, or other concerns. As per the [facility] she vomits occasionally but not everyday. She is mostly sedentary but does ambulate a little in her room. Patient denies any surgical hx. 10/25/18 11:51 Past History - Past Medical History Allergies/Adverse Reactions: Allergies Allergy/AdvReac Type Severity Reaction Status Date / Time No Known Allergies Allergy Verified 06/09/18 15:55 Home Medications: Ambulatory Orders Albuterol 2.5/Ipratropium 0.5 [Duoneb -] 1 neb NEB Q8H PRN 06/09/18 Amlodipine Besylate 5 mg PO DAILY 06/09/18 Ascorbic Acid [Vitamin C -] 500 mg PO BID 06/09/18 Carbamide Peroxide [Debrox] 15 ml DAILY 06/09/18 Docusate Sodium [Colace] 300 mg PO HS 06/09/18 Ferrous Sulfate 325 mg PO BID 06/09/18 Folic Acid 1 mg PO DAILY 06/09/18 Levothyroxine [Synthroid -] 25 mcg PO DAILY 06/09/18 Magnesium Hydroxide [Milk of Magnesia] 400 mg PO DAILY 06/09/18 Mirtazapine [Remeron -] 30 mg PO DAILY 06/09/18 Polyethylene Glycol 3350 [Miralax 119 gm Btl -] 17 g PO BID 06/09/18 Potassium Chloride [K-Dur -] 20 meq PO BID 06/09/18 Sennosides [Senna] 8.6 mg PO DAILY 06/09/18 Sodium Chloride 1,000 mg PO Q6H 06/09/18 Aripiprazole [Abilify -] 2 mg PO DAILY 10/25/18 Epoetin Wally [Procrit -] 10,000 unit SQ WEEKLY 10/25/18 Guaifenesin AC [Robitussin AC] 20 ml PO Q8H 10/25/18 Nystatin Oral Suspension - [Nystatin Oral Susp 408343 Units/5 ML -] 500,000 units PO Q6H 10/25/18 Omeprazole Magnesium [Prilosec Otc] 20 mg PO DAILY 10/25/18 Anemia: Yes Asthma: No Cancer: Yes (esophagus) Cardiac Disorders: No CVA: No COPD: Yes CHF: No Dementia: No Diabetes: No GI Disorders: Yes Disorders: No HTN: Yes Hypercholesterolemia: No Liver Disease: No Seizures: No Thyroid Disease: Yes - Surgical History Abdominal Surgery: No Appendectomy: No Cardiac Surgery: No Cholecystectomy: No Lung Surgery: No Neurologic Surgery: No Orthopedic Surgery: No - Suicide/Smoking/Psychosocial Hx Smoking History: Unknown if ever smoked Hx Alcohol Use: No Drug/Substance Use Hx: No Substance Use Type: None Hx Substance Use Treatment: No Review of Systems - Review of Systems Constitutional: Yes: Chills Respiratory: No: Cough, Shortness of Breath Cardiac (ROS): No: Chest Pain ABD/GI: Yes: Constipated, Nausea, Vomiting. No: Diarrhea : No: Dysuria Neurological: No: Headache *Physical Exam - Vital Signs Last Vital Signs Temp Pulse Resp BP Pulse Ox 97.5 F L 94 H 18 125/84 99 10/25/18 10:40 10/25/18 10:40 10/25/18 10:40 10/25/18 10:40 10/25/18 10:40 - Physical Exam General Appearance: Yes: Mild Distress, Thin HEENT: positive: EOMI, Pale Conjunctivae Neck: positive: Supple Respiratory/Chest: positive: Lungs Clear, Normal Breath Sounds. negative: Respiratory Distress Cardiovascular: positive: Regular Rhythm, Regular Rate, Systolic Murmur Gastrointestinal/Abdominal: positive: Normal Bowel Sounds, Soft. negative: Tender Extremity: positive: Normal Capillary Refill Integumentary: positive: Dry Neurologic: positive: regulatory internship II-XII NML intact, Fully Oriented, Motor Strength 5/5 Heart Score/ECG Review #1 ECG reviewed & interpreted by me at: 12:57 General ECG Interpretation: No acute ischemic changes Vent rate - 101 bpm RI interval - 184 ms QRS duration - 76 ms QT/QTc 364/471 ms P-R-T axes 77 23 89 Sinus tachycardia no acute ischemic changes 10/25/18 12:57 ED Treatment Course - LABORATORY CBC & Chemistry Diagram: 10/25/18 11:10 10/25/18 11:10 - RADIOLOGY Radiology Studies Ordered: Category Date Time Status CHEST X-RAY PORTABLE* [RAD] AM Radiology 10/26/18 06:00 Ordered - Medications Given in the ED: ED Medications Discontinued Medications Generic Name Dose Route Start Last Admin Trade Name Freq PRN Reason Stop Dose Admin Metoclopramide HCl 10 mg 10/25/18 11:23 10/25/18 11:35 Reglan Injection - IVPB 10/25/18 11:24 10 mg ONCE ONE Administration Ondansetron HCl 4 mg 10/25/18 11:23 10/25/18 11:35 Zofran Injection IVPUSH 10/25/18 11:24 4 mg ONCE ONE Administration Sodium Chloride 1,000 ml 10/25/18 11:46 10/25/18 11:47 Normal Saline - IV 10/25/18 11:47 1,000 ml ONCE ONE Administration Medical Decision Making - Medical Decision Making 10/25/18 13:01 83 y/o/f resident of [facility] with PMHx of Iron deficiency anemia, HTN, GERD, and COPD. Patient had a HGB of about 7 on 10/15 as per [facility]. Refused blood transfusion at that time. Stated she was not feeling well today and agreeable to blood transfusion now. CBC, CMP, UA, type and screen, and Trops, CXR ordered. CBC with HGB/HCT of 6.8/22.2 Patient given 1L bolus of normal saline for rehydration 1 unite PRBC ordered for anemia 10/25/18 13:16 CXR negative for acute pathology 10/25/18 13:54 Patient's blood type is B Positive and she is receiving O Positive blood. Spoke with Blood Bank and confirmed that there are no issues. Patient made aware. 10/25/18 14:48 Patient having difficulty keeping down solids and fluids. Spoke with Dr. Amos, told that patient is comfort care and to admit to Dr. Elisabet Estrada. Palliative consult recommended. Spoke with Dr. Estrada. Patient admitted to med/surg for further evaluation. *DC/Admit/Observation/Transfer Diagnosis at time of Disposition: Low hemoglobin Anemia Qualifiers: Anemia type: iron deficiency - Discharge Dispostion Condition at time of disposition: Guarded Decision to Admit order: Yes - Referrals Referrals: Vince Amos MD [Primary Care Provider] - Elisabet Estrada MD [Staff Physician] - - Patient Instructions - Post Discharge Activity
[2018-10-25 12:00] LABS: HEMOGLOBIN 6.8 GM/dL (10.7-15.3)
[2018-10-25 12:14] LABS: ALBUMIN 2.6 g/dl (3.4-5.0); BILIRUBIN,TOTAL 0.4 mg/dL (0.2-1); BLOOD UREA NITROGEN 21.3 mg/dL (7-18); CALCIUM 8.7 mg/dL (8.5-10.1); CREATININE 0.8 mg/dL (0.55-1.3); POTASSIUM 3.9 mmol/L (3.5-5.1); TOT PROT 7.2 g/dl (6.4-8.2)
--- NOTE | 2018-10-25 12:30 | PDOC ---
Documentation entered by Tim Sesay SCRIBE, acting as scribe for Gianluca Duff MD. Gianluca Duff MD: This documentation has been prepared by the Lázaro moreira Elijah, SCRIBE, under my direction and personally reviewed by me in its entirety. I confirm that the documentation accurately reflects all work, treatment, procedures, and medical decision making performed by me. Attending Attestation - Resident Resident Name: DesmondNoéluisyu Joseph - ED Attending Attestation I have performed the following: I have examined & evaluated the patient, The case was reviewed & discussed with the resident, I agree w/resident's findings & plan - HPI HPI: 10/25/18 11:46 Patient is an 83 year old female with a significant past medical history of HTN , GERD, Iron deficiency anemia, constipation, and COPD who presents to the ED from [facility] with Confusion, Nausea and vomiting. Patient reports that they have been having the nausea and vomiting for a year now and notes that today she was "tired of it." As per [place] patient was sent for confusion and associated weakness. Denies recent fall, headache, and abdominal pain. Allergies: NKA PCP: Dr. Amos - Physicial Exam PE: 10/25/18 11:45 Vitals: Triage vital signs reviewed General Appearance: No acute distress, well nourished, well developed Head: Atraumatic Neck: Supple; No nuchal rigidity Chest Wall: Nontender Cardiac: +Murmur. Regular rate and rhythm, no rubs, no gallops Lungs: Clear to auscultation bilateral, good air movement bilaterally Abdomen: Soft, nondistended, normal bowel sounds, nontender to palpation Extremities: Full range of motion to all extremities, no cyanosis, clubbing, or edema Skin: Warm and dry, no rashes or lesions, no rash, no petechiae Psych: Normal mood, normal affect - Medical Decision Making 10/25/18 14:50 83 y/o/f resident of [facility] with PMHx of Iron deficiency anemia, HTN, GERD, and COPD, esophageal cancer, comfort measures only. Laboratory analysis found patient to be anemic. Patient with difficulty tolerating secretions. Case discussed with patient's primary care provider Dr. Amos. This is a chronic ongoing situation for her given her esophageal cancer. We'll admit for blood transfusion palliative care consultation to readdress goals of care.
--- NOTE | 2018-10-25 12:49 | EKG ---
Test Reason : Blood Pressure : / mmHG Vent. Rate : 101 BPM Atrial Rate : 101 BPM P-R Int : 184 ms QRS Dur : 076 ms QT Int : 364 ms P-R-T Axes : 077 023 089 degrees QTc Int : 471 ms SINUS TACHYCARDIA NONSPECIFIC ST AND T WAVE ABNORMALITY WHEN COMPARED WITH ECG OF 09-JUN-2018 23:32, PREMATURE VENTRICULAR COMPLEXES ARE NO LONGER PRESENT Confirmed by FRANCISCA POTTS MD ([id number]) on 10/25/2018 12:49:34 PM Referred By: Confirmed By:FRANCISCA POTTS MD
[2018-10-25 13:46] LABS: ANISOCYTOSIS 3+; MACROCYTOSIS 0; PLATELET ESTIMATE INCREASED
[2018-10-25] MEDS ORDERED: morphine CARPU-JECT 4 MG/1 ML DISP.SYRIN IVPUSH ONE (14:18)
[2018-10-25 14:42] LABS: PH,URINE 5.5 (5.0-8.0); URINE APPEARANCE CLEAR; URINE BILIRUBIN NEGATIVE (NEGATIVE); URINE COLOR DK YELLOW; URINE GLUCOSE (UA) NEGATIVE (NEGATIVE); URINE KETONE NEGATIVE (NEGATIVE); URINE LEUK ESTERASE NEGATIVE (NEGATIVE); URINE NITRITE NEGATIVE (NEGATIVE); URINE PROTEIN TRACE (NEGATIVE)
[2018-10-25] MEDS ORDERED: guaiFENesin/CODEINE 10 ML UNIT-DOSE CUPS PO PRN (17:30)
[2018-10-25] MEDS ORDERED: ALBUTEROL SO4 2.5/IPRATROPIUM 0.5 INH SOL 3 ML VIAL.NEB. NEB PRN (17:30)
[2018-10-25 17:34] VITALS: BMI 13.6
[2018-10-25] MEDS ORDERED: FUROSEMIDE 40 MG/4 ML INJECTABLE VIAL IVPUSH ONE (17:40)
--- NOTE | 2018-10-25 17:42 | HP ---
Admitting History and Physical - Primary Care Physician PCP: Elisabet Estrada - Admission Chief Complaint: feeling weak History of Present Illness: 83 [facility]f [facility] [place] with PMHx of Iron deficiency anemia, Eosophageal [facility] -- Dr. Amos-- NeedHTN, GERD, and COPD sent here for complaints of not feeling well. As per snf the patient had bloodwork done on 10/15 which showed a hemoglobin of about 7. Patient refused blood transfusion at that time. As per snf today the patient stated that she did not feel well and wanted to get a blood transfusion now Discussed with pts pmd at [facility], [place]--- Dr. Amos--Need transfusion Case was also discussed with er physician Pt got one unit in Er Pt seen / examined on Floor Chart reviewed Awake/ comfortable Denies pain History Source: Patient, Medical Record Limitations to Obtaining History: No Limitations - Past Medical History Cardiovascular: Yes: HTN Endocrine: Yes: Hypothyroidism Additional Past Medical History: Esophageal Ca - Advance Directives Advance Directives: Yes: DNR - Smoking History Smoking history: Current some day smoker Have you smoked in the past 12 months: Yes Aproximately how many cigarettes per day: 3 - Alcohol/Substance Use Hx Alcohol Use: No Home Medications - Allergies Allergies/Adverse Reactions: Allergies Allergy/AdvReac Type Severity Reaction Status Date / Time No Known Allergies Allergy Verified 06/09/18 15:55 - Home Medications Home Medications: Ambulatory Orders Albuterol 2.5/Ipratropium 0.5 [Duoneb -] 1 neb NEB Q8H PRN 06/09/18 Amlodipine Besylate 5 mg PO DAILY 06/09/18 Ascorbic Acid [Vitamin C -] 500 mg PO BID 06/09/18 Carbamide Peroxide [Debrox] 15 ml DAILY 06/09/18 Docusate Sodium [Colace] 300 mg PO HS 06/09/18 Ferrous Sulfate 325 mg PO BID 06/09/18 Folic Acid 1 mg PO DAILY 06/09/18 Levothyroxine [Synthroid -] 25 mcg PO DAILY 06/09/18 Magnesium Hydroxide [Milk of Magnesia] 400 mg PO DAILY 06/09/18 Mirtazapine [Remeron -] 30 mg PO DAILY 06/09/18 Polyethylene Glycol 3350 [Miralax 119 gm Btl -] 17 g PO BID 06/09/18 Potassium Chloride [K-Dur -] 20 meq PO BID 06/09/18 Sennosides [Senna] 8.6 mg PO DAILY 06/09/18 Sodium Chloride 1,000 mg PO Q6H 06/09/18 Aripiprazole [Abilify -] 2 mg PO DAILY 10/25/18 Epoetin Wally [Procrit -] 10,000 unit SQ WEEKLY 10/25/18 Guaifenesin AC [Robitussin AC] 20 ml PO Q8H 10/25/18 Nystatin Oral Suspension - [Nystatin Oral Susp 678689 Units/5 ML -] 500,000 units PO Q6H 10/25/18 Omeprazole Magnesium [Prilosec Otc] 20 mg PO DAILY 10/25/18 Review of Systems - Review of Systems Constitutional: reports: Weakness Eyes: reports: No Symptoms Neck: reports: No Symptoms Cardiovascular: reports: No Symptoms Respiratory: reports: No Symptoms Gastrointestinal: reports: Other (difficulty - swallowing - chronic -- takes chopped diet) Genitourinary: reports: No Symptoms Neurological: reports: No Symptoms Psychiatric: reports: No Symptoms Physical Examination Vital Signs: Vital Signs Temperature 98.1 F 10/25/18 16:47 Pulse Rate 72 10/25/18 16:47 Respiratory Rate 18 10/25/18 16:47 Blood Pressure 102/62 10/25/18 16:47 O2 Sat by Pulse Oximetry (%) 94 L 10/25/18 16:47 Constitutional: Yes: No Distress, Calm Eyes: Yes: Conjunctiva Clear Neck: Yes: Supple Cardiovascular: Yes: Regular Rate and Rhythm Respiratory: Yes: Diminished Gastrointestinal: Yes: Soft Edema: No Neurological: Yes: Alert Psychiatric: Yes: Alert Labs: CBC, BMP 10/25/18 11:10 10/25/18 11:10 Imaging - Results Chest X-ray: Report Reviewed EKG: Report Reviewed Problem List - Problems (1) Anemia requiring transfusions Code(s): D64.9 - ANEMIA, UNSPECIFIED (2) Esophageal cancer Code(s): C15.9 - MALIGNANT NEOPLASM OF ESOPHAGUS, UNSPECIFIED (3) Hypothyroidism Code(s): E03.9 - HYPOTHYROIDISM, UNSPECIFIED (4) HTN (hypertension) Code(s): I10 - ESSENTIAL (PRIMARY) HYPERTENSION Assessment/Plan Discussed will transfuse another unit today Lasix afterwards cbc tomorrow no other issues Anticipate d/c back to [facility] tomorrow Pt is DNR/ DI Discussed with nursing staff also
[2018-10-25] MEDS: NYSTATIN 500,000 UNITS/5 ML SUSPENSION PO SCH ×2 (18:43→23:54)
[2018-10-25] MEDS: ASCORBIC ACID 500 MG TABLET (FP) PO SCH (21:19)
[2018-10-25] MEDS: POTASSIUM CHLORIDE TABS 20 MEQ TABLET.ER (FP) PO SCH (21:19)
[2018-10-25] MEDS: DOCUSATE SODIUM 100 MG CAPSULE (FP) PO SCH (21:19)
[2018-10-25] MEDS: POLYETHYLENE GLYCOL 3350 119 GM BTL PO SCH (21:19)
[2018-10-25] MEDS: FERROUS SO4 325 MG TABLET (FP) PO SCH (21:19)
[2018-10-25] MEDS ORDERED: FUROSEMIDE 40 MG/4 ML INJECTABLE VIAL ONE (23:38)
[2018-10-26] MEDS: NYSTATIN 500,000 UNITS/5 ML SUSPENSION PO SCH ×3 (06:37→17:16)
[2018-10-26] MEDS: LEVOTHYROXINE NA 25 MCG TABLET (FP) PO SCH (06:37)
[2018-10-26 08:10] LABS: HEMATOCRIT 28.6 % (32.4-45.2); HEMOGLOBIN 9.3 GM/dL (10.7-15.3); MCH 22.8 pg (25.7-33.7); MCHC 32.5 g/dl (32.0-36.0); MEAN CELL VOLUME 70.1 fl (80-96); PLATELET COUNT 492 K/MM3 (134-434); RBC 4.08 M/mm3 (3.60-5.2); RDW 21.2 % (11.6-15.6); WHITE BLOOD COUNT 8.1 K/mm3 (4.0-10.0)
[2018-10-26] MEDS ORDERED: MAGNESIUM HYDROX 2400MG/30ML ORAL SUSPENSION 30 ML CUP PO PRN (10:00)
[2018-10-26] MEDS ORDERED: PT OWN MED DRAWER 7, Y5N ONE (10:01)
[2018-10-26] MEDS: FERROUS SO4 325 MG TABLET (FP) PO SCH ×2 (10:03→21:53)
[2018-10-26] MEDS: MIRTAZAPINE 30 MG TABLET (FP) PO SCH (10:03)
[2018-10-26] MEDS: ASCORBIC ACID 500 MG TABLET (FP) PO SCH ×2 (10:03→21:53)
[2018-10-26] MEDS: amLODIPine BESYLATE 5 MG TABLET (FP) PO SCH (10:03)
[2018-10-26] MEDS: SENNOSIDES 8.6MG TABLET (FP) PO SCH (10:03)
[2018-10-26] MEDS: FOLIC ACID 1 MG TABLET (FP) PO SCH (10:03)
[2018-10-26] MEDS: ARIPiprazole 2 MG TABLET PO SCH (10:03)
[2018-10-26] MEDS: PANTOPRAZOLE 20 MG TABLET (FP) PO SCH (10:03)
[2018-10-26] MEDS: POTASSIUM CHLORIDE TABS 20 MEQ TABLET.ER (FP) PO SCH ×2 (10:04→21:53)
[2018-10-26] MEDS: POLYETHYLENE GLYCOL 3350 119 GM BTL PO SCH ×2 (10:13→21:53)
--- NOTE | 2018-10-26 11:01 | DS ---
Physical Examination Vital Signs: Vital Signs Temperature 98.6 F 10/26/18 05:48 Pulse Rate 66 10/26/18 05:48 Respiratory Rate 18 10/26/18 05:48 Blood Pressure 100/54 L 10/26/18 05:48 O2 Sat by Pulse Oximetry (%) 94 L 10/26/18 01:36 Constitutional: Yes: No Distress, Calm Cardiovascular: Yes: Regular Rate and Rhythm Respiratory: Yes: Diminished Gastrointestinal: Yes: Normal Bowel Sounds, Soft. No: Tenderness Edema: No Labs: CBC, BMP 10/26/18 07:20 10/25/18 11:10 Discharge Summary Reason For Visit: ANEMIA, LOW HEMOGLOBIN Current Active Problems Anemia (Acute) Anemia requiring transfusions (Acute) Esophageal cancer (Acute) HTN (hypertension) (Acute) Hypothyroidism (Acute) Low hemoglobin (Acute) Hospital Course: - Admission Chief Complaint: feeling weak History of Present Illness: 83 y/o/f resident of [facility] with PMHx of Iron deficiency anemia, Eosophageal [facility] -- Dr. Amos-- NeedHTN, GERD, and COPD sent here for complaints of not feeling well. As per skilled nursing the patient had bloodwork done on 10/15 which showed a hemoglobin of about 7. Patient refused blood transfusion at that time. As per skilled nursing today the patient stated that she did not feel well and wanted to get a blood transfusion now Discussed with pts pmd at [facility]--- Dr. Amos--Need transfusion pt received 2 units PRBC total received Lasix 20mg iv x 2 for congestion CXR repeated -- no CHF, effusion, infiltrate May need better bowel regimen at OR she is tolerating diet Hb better stable for dc to OR Condition: Improved - Instructions Disposition: [facility] - Home Medications Comprehensive Discharge Medication List: Ambulatory Orders Albuterol 2.5/Ipratropium 0.5 [Duoneb -] 1 neb NEB Q8H PRN 06/09/18 Amlodipine Besylate 5 mg PO DAILY 06/09/18 Ascorbic Acid [Vitamin C -] 500 mg PO BID 06/09/18 Carbamide Peroxide [Debrox] 15 ml DAILY 06/09/18 Docusate Sodium [Colace] 300 mg PO HS 06/09/18 Ferrous Sulfate 325 mg PO BID 06/09/18 Folic Acid 1 mg PO DAILY 06/09/18 Levothyroxine [Synthroid -] 25 mcg PO DAILY 06/09/18 Magnesium Hydroxide [Milk of Magnesia] 400 mg PO DAILY 06/09/18 Mirtazapine [Remeron -] 30 mg PO DAILY 06/09/18 Polyethylene Glycol 3350 [Miralax 119 gm Btl -] 17 g PO BID 06/09/18 Potassium Chloride [K-Dur -] 20 meq PO BID 06/09/18 Sennosides [Senna] 8.6 mg PO DAILY 06/09/18 Sodium Chloride 1,000 mg PO Q6H 06/09/18 Aripiprazole [Abilify -] 2 mg PO DAILY 10/25/18 Epoetin Wally [Procrit -] 10,000 unit SQ WEEKLY 10/25/18 Guaifenesin AC [Robitussin AC] 20 ml PO Q8H 10/25/18 Nystatin Oral Suspension - [Nystatin Oral Susp 969404 Units/5 ML -] 500,000 units PO Q6H 10/25/18 Omeprazole Magnesium [Prilosec Otc] 20 mg PO DAILY 10/25/18
[2018-10-26] MEDS ORDERED: FUROSEMIDE 40 MG/4 ML INJECTABLE VIAL IVPUSH ONE (11:25)
[2018-10-26] MEDS: DOCUSATE SODIUM 100 MG CAPSULE (FP) PO SCH (21:53)
[2018-10-27] MEDS: NYSTATIN 500,000 UNITS/5 ML SUSPENSION PO SCH ×3 (01:48→11:30)
[2018-10-27] MEDS: LEVOTHYROXINE NA 25 MCG TABLET (FP) PO SCH (06:17)
[2018-10-27] MEDS ORDERED: EPOETIN ALFA 10,000 UNIT/1 ML VIAL SQ SCH (10:00)
[2018-10-27] MEDS: ARIPiprazole 2 MG TABLET PO SCH (10:27)
[2018-10-27] MEDS: FERROUS SO4 325 MG TABLET (FP) PO SCH (10:27)
[2018-10-27] MEDS: POLYETHYLENE GLYCOL 3350 119 GM BTL PO SCH (10:28)
[2018-10-27] MEDS: FOLIC ACID 1 MG TABLET (FP) PO SCH (10:28)
[2018-10-27] MEDS: POTASSIUM CHLORIDE TABS 20 MEQ TABLET.ER (FP) PO SCH (10:28)
[2018-10-27] MEDS: MIRTAZAPINE 30 MG TABLET (FP) PO SCH (10:29)
[2018-10-27] MEDS: SENNOSIDES 8.6MG TABLET (FP) PO SCH (10:29)
[2018-10-27] MEDS: PANTOPRAZOLE 20 MG TABLET (FP) PO SCH (10:29)
[2018-10-27] MEDS: amLODIPine BESYLATE 5 MG TABLET (FP) PO SCH (10:29)
[2018-10-27] MEDS ORDERED: MINERAL OIL ENEMA 133 ML ENEMA PR ONE (10:30)
[2018-10-27] MEDS: ASCORBIC ACID 500 MG TABLET (FP) PO SCH (10:30)
[2018-10-27] MEDS ORDERED: ONDANSETRON 4 MG/2 ML VIAL IVPUSH ONE (11:15)
--- NOTE | 2018-10-27 11:16 | PN ---
Progress Note (short form) - Note Progress Note: no complaints feels well no congestion no coughing Vital Signs - 24 hr 10/26/18 10/26/18 10/27/18 13:00 17:00 01:00 Temperature 97.8 F 98 F Pulse Rate 90 94 H Respiratory 20 20 20 Rate Blood Pressure 132/83 139/87 O2 Sat by Pulse 96 95 Oximetry (%) 10/27/18 10:00 Temperature 97.6 F Pulse Rate 82 Respiratory 20 Rate Blood Pressure 113/73 O2 Sat by Pulse Oximetry (%) Current Medications Generic Name Dose Route Start Last Admin Trade Name Freq PRN Reason Stop Dose Admin Albuterol/Ipratropium 1 amp 10/25/18 17:30 Duoneb - NEB Q8H PRN SHORTNESS OF BREATH Amlodipine Besylate 5 mg 10/26/18 10:00 10/26/18 10:03 Norvasc - PO 5 mg DAILY PRICILA Administration Aripiprazole 2 mg 10/26/18 10:00 10/26/18 10:03 Abilify PO 2 mg DAILY PRICILA Administration Ascorbic Acid 500 mg 10/25/18 22:00 10/26/18 21:53 Vitamin C - PO Not Given BID [facility] Carbamide Perox/Anhydrous Glycerin 5 drop 10/29/18 10:00 Debrox - AD Fr@1000 [facility] Docusate Sodium 300 mg 10/25/18 22:00 10/26/18 21:53 Colace - PO Not Given HS PRICILA Epoetin Wally 10,000 unit 10/27/18 10:00 Procrit - SQ We@1000 [facility] Ferrous Sulfate 325 mg 10/25/18 22:00 10/26/18 21:53 Feosol - PO Not Given BID PRICILA Folic Acid 1 mg 10/26/18 10:00 10/26/18 10:03 Folic Acid - PO 1 mg DAILY [facility] Administration Guaifenesin/Codeine Phosphate 20 ml 10/25/18 17:30 Robitussin Ac - PO Q8H PRN COUGH Levothyroxine Sodium 25 mcg 10/26/18 07:00 10/27/18 06:17 Synthroid - PO Not Given DAILY@0700 PRICILA Magnesium Hydroxide 5 ml 10/26/18 10:00 Milk Of Magnesia - PO DAILY PRN CONSTIPATION Mirtazapine 30 mg 10/26/18 10:00 10/26/18 10:03 Remeron - PO 30 mg DAILY PRICILA Administration Nystatin 500,000 units 10/25/18 18:00 10/27/18 06:17 Nystatin Oral Suspension - PO Not Given Q6HPO PRICILA Ondansetron HCl 4 mg 10/27/18 11:15 Zofran Injection IVPUSH 10/27/18 11:16 ONCE ONE Pantoprazole Sodium 20 mg 10/26/18 10:00 10/26/18 10:03 Protonix - PO 20 mg DAILY PRICILA Administration Polyethylene Glycol 17 gm 10/25/18 22:00 10/26/18 21:53 Miralax (For Daily Use) - PO Not Given BID PRICILA Potassium Chloride 20 meq 10/25/18 22:00 10/26/18 21:53 K-Dur - PO Not Given BID PRICILA Senna 1 tab 10/26/18 10:00 10/26/18 10:03 Senna - PO 1 tab DAILY PRICILA Administration S1 S2 RRR Lungs clear Abd- soft, NT No edema PLAN anemia esophageal CA -- s/p 2 units PRBC -- stable for dc to [place] ' Problem List - Problems (1) Anemia Code(s): D64.9 - ANEMIA, UNSPECIFIED Qualifiers: Anemia type: iron deficiency (2) Anemia requiring transfusions Code(s): D64.9 - ANEMIA, UNSPECIFIED (3) Esophageal cancer Code(s): C15.9 - MALIGNANT NEOPLASM OF ESOPHAGUS, UNSPECIFIED (4) HTN (hypertension) Code(s): I10 - ESSENTIAL (PRIMARY) HYPERTENSION (5) Hypothyroidism Code(s): E03.9 - HYPOTHYROIDISM, UNSPECIFIED
[2018-10-27 15:42] VITALS: BP 101/59; PULSE 86; TEMP 98.3
[2018-10-29] MEDS ORDERED: CARBAMIDE PEROXIDE 6.5% OTIC 15 ML BOTTLE AD SCH (10:00)
== END 2018-10-27 15:09 ==
LOC: JER 10:23 → INTOOBSV 14:47 → UNDOADMOB 14:47 → JERBED 14:47 → J5S 16:35 → JERBED 17:35 → J5S 17:35
PROVIDERS: ADMIT Internal Medicine; ATTEND Internal Medicine
PROC: 30233N1 Transfusion of Nonautologous Red Blood Cells into Peripheral Vein, Percutaneous Approach (ICD-10-PCS; principal; 2018-10-25)
PROC: 3E033GC Introduction of Other Therapeutic Substance into Peripheral Vein, Percutaneous Approach (ICD-10-PCS; 2018-10-25)
PROC: 3E0337Z Introduction of Electrolytic and Water Balance Substance into Peripheral Vein, Percutaneous Approach (ICD-10-PCS; 2018-10-25)
DX: D50.9 Iron deficiency anemia, unspecified (principal); I10 Essential (primary) hypertension; K21.9 Gastro-esophageal reflux disease without esophagitis; J44.9 Chronic obstructive pulmonary disease, unspecified; E03.9 Hypothyroidism, unspecified; C15.9 Malignant neoplasm of esophagus, unspecified
CPT/HCPCS: 36415; 36430; 36511; 71045-TC-FY; 80053; 81003; 82550; 83690; 84484; 85025; 85027; 86850; 86900; 86901; 86922; 93005; 93010; 96374; 96375; 96376; 99285-25; G0378; J0885; P9038; P9058

== ENCOUNTER 2018-11-15 13:59 | Inpatient (IN) | payer OTHER ==
--- NOTE | 2018-11-15 15:25 | PDOC ---
History of Present Illness - General Chief Complaint: Pain Stated Complaint: PAIN ALL OVER BODY Time Seen by Provider: 11/15/18 15:24 History Source: Patient, Prison Records - History of Present Illness Initial Comments: 11/15/18 18:04 Ms. Paulson is an 83 y/o F with hx alzheimers dementia, esophageal cancer unable to tolerate po, HTN, GERD, COPD presenting as a transfer from [facility] rehab facility for complaints of abdominal pain and leg pain. She denies any pain at this time. She has hx dementia and cannot provide history. Called [facility], discussed case with her nurse. She began to report severe abdominal pain today, but while being wheeled out of the facility reported that she had no abdominal pain, but had leg pain. Her nurse reports that Ms. Paulson has been unable to tolerate food by mouth due to the esophageal cancer. They report that her entire nutrition has been small amounts of maxwell isauro, which she often vomits after attempting to drink. No measured fevers, no changes in urine per nurse. Past History - Past Medical History Allergies/Adverse Reactions: Allergies Allergy/AdvReac Type Severity Reaction Status Date / Time No Known Allergies Allergy Verified 06/09/18 15:55 Home Medications: Ambulatory Orders Albuterol 2.5/Ipratropium 0.5 [Duoneb -] 1 neb NEB Q8H PRN 06/09/18 Amlodipine Besylate 5 mg PO DAILY 06/09/18 Ascorbic Acid [Vitamin C -] 500 mg PO BID 06/09/18 Carbamide Peroxide [Debrox] 15 ml DAILY 06/09/18 Docusate Sodium [Colace] 300 mg PO HS 06/09/18 Ferrous Sulfate 325 mg PO BID 06/09/18 Folic Acid 1 mg PO DAILY 06/09/18 Levothyroxine [Synthroid -] 25 mcg PO DAILY 06/09/18 Magnesium Hydroxide [Milk of Magnesia] 400 mg PO DAILY 06/09/18 Mirtazapine [Remeron -] 30 mg PO DAILY 06/09/18 Polyethylene Glycol 3350 [Miralax 119 gm Btl -] 17 g PO BID 06/09/18 Potassium Chloride [K-Dur -] 20 meq PO BID 06/09/18 Sennosides [Senna] 8.6 mg PO DAILY 06/09/18 Sodium Chloride 1,000 mg PO Q6H 06/09/18 Aripiprazole [Abilify -] 2 mg PO DAILY 10/25/18 Epoetin Wally [Procrit -] 10,000 unit SQ WEEKLY 10/25/18 Guaifenesin AC [Robitussin AC -] 20 ml PO Q8H 10/25/18 Nystatin Oral Suspension - [Nystatin Oral Susp 844252 Units/5 ML -] 500,000 units PO Q6H 10/25/18 Omeprazole Magnesium [Prilosec Otc] 20 mg PO DAILY 10/25/18 Furosemide [Lasix] 20 mg PO DAILY #30 tablet 10/26/18 Anemia: Yes Asthma: No Cancer: Yes (esophagus) Cardiac Disorders: No CVA: No COPD: Yes CHF: No Dementia: No Diabetes: No GI Disorders: Yes Disorders: No HTN: Yes Hypercholesterolemia: No Liver Disease: No Seizures: No Thyroid Disease: Yes - Surgical History Abdominal Surgery: No Appendectomy: No Cardiac Surgery: No Cholecystectomy: No Lung Surgery: No Neurologic Surgery: No Orthopedic Surgery: No - Suicide/Smoking/Psychosocial Hx Smoking History: Smoker current status UNK Have you smoked in the past 12 months: No Number of Cigarettes Smoked Daily: 3 Information on smoking cessation initiated: No Hx Alcohol Use: No Drug/Substance Use Hx: No Substance Use Type: None Hx Substance Use Treatment: No Review of Systems - Review of Systems Able to Perform ROS?: Yes (Limited by dementia) Comments:: 11/15/18 16:20 Limited by dementia. Per assisted - was reporting abdominal pain, leg pain this morning. ROS: GENERAL/CONSTITUTIONAL: No fever or chills. No weakness. HEAD, EYES, EARS, NOSE AND THROAT: No change in vision. No ear pain or discharge. No sore throat. CARDIOVASCULAR: No chest pain or shortness of breath RESPIRATORY: No cough, wheezing, or hemoptysis. GASTROINTESTINAL: No nausea, vomiting, diarrhea or constipation. GENITOURINARY: No dysuria, frequency, or change in urination. MUSCULOSKELETAL: No joint or muscle swelling or pain. No neck or back pain. SKIN: No rash NEUROLOGIC: No headache, vertigo, loss of consciousness, or change in strength/ sensation. ENDOCRINE: No increased thirst. No abnormal weight change HEMATOLOGIC/LYMPHATIC: No anemia, easy bleeding, or history of blood clots. ALLERGIC/IMMUNOLOGIC: No hives or skin allergy. *Physical Exam - Vital Signs Last Vital Signs Temp Pulse Resp BP Pulse Ox 109 H 20 110/83 100 11/15/18 14:41 11/15/18 14:41 11/15/18 14:41 11/15/18 14:41 - Physical Exam Comments: 11/15/18 16:21 PE: GENERAL: Awake, alert, disoriented to place, time, situation HEAD: No signs of trauma, normocephalic, atraumatic EYES: PERRLA, EOMI, sclera anicteric, conjunctiva clear ENT: Auricles normal inspection, hearing grossly normal, nares patent, oropharynx clear without exudates. Moist mucosa NECK: Normal ROM, supple, no lymphadenopathy, JVD, or masses LUNGS: No distress, speaks full sentences, clear to auscultation bilaterally HEART: Regular rate and rhythm, normal S1 and S2, no murmurs, rubs or gallops, peripheral pulses normal and equal bilaterally. ABDOMEN: Soft, nontender, normoactive bowel sounds. No guarding, no rebound. No masses EXTREMITIES : Normal inspection, Normal range of motion, no edema. No clubbing or cyanosis NEUROLOGICAL: Normal speech, no focal sensorimotor deficits SKIN: Warm, Dry, normal turgor, no rashes or lesions noted ED Treatment Course - LABORATORY CBC & Chemistry Diagram: 11/15/18 16:52 11/15/18 16:53 Medical Decision Making - Medical Decision Making 11/15/18 16:22 83 F with hx severe alzheimers dementia, esophageal CA unable to tolerate anything by mouth transferred from [facility] rehab for abdominal pain and leg pain, not reporting any pain at this time, nontender with normal bowel sounds. Of note, when discussing with assisted staff nurse reported that she has not been able to tolerate any food by mouth due to the CA and has been losing weight. They report the only plan for nourishment has been small amounts of maxwell isauro, which she reports Ms. Paulson often vomits. Plan: Rectal temp - if elevated then septic workup CBC CMP UA CXR 1L IV NS Case management --- Rectal temp - 97.6F 11/15/18 17:41 Lab called - problem with warming blood, CBC will be delayed 30 min 11/15/18 17:48 Lab called - CBC hemolyzed -- Repeat CBC - notable for WBC 25 Blood cultures ordered -- Straight cath attempted for UA multiple times. Catheter entry into urethra visualized by myself as well as Nurse Chris, with no urine return and subsequent exit through vagina. Concern for vesicovaginal fistula. Patient remains unable to void into bed pad. Discussed with attending, Dr. Franks will attempt straight cath as well. --- Case signed out to Dr. Horne. *DC/Admit/Observation/Transfer Diagnosis at time of Disposition: SIRS (systemic inflammatory response syndrome) - Discharge Dispostion Condition at time of disposition: Stable Decision to Admit order: Yes - Referrals Referrals: Vince Amos MD [Primary Care Provider] - - Patient Instructions - Post Discharge Activity
[2018-11-15 17:47] LABS: ALBUMIN 2.7 g/dl (3.4-5.0); BILIRUBIN,TOTAL 0.5 mg/dL (0.2-1); BLOOD UREA NITROGEN 67.4 mg/dL (7-18); CALCIUM 9.3 mg/dL (8.5-10.1); POTASSIUM 3.7 mmol/L (3.5-5.1); TOT PROT 7.4 g/dl (6.4-8.2)
--- NOTE | 2018-11-15 17:54 | PDOC ---
Attending Attestation - Resident Resident Name: Felix Lee - ED Attending Attestation I have performed the following: I have examined & evaluated the patient, The case was reviewed & discussed with the resident, I agree w/resident's findings & plan, Exceptions are as noted - HPI HPI: 11/15/18 17:53 89 yo female is from the senior care for abdominal pain. Upon arrival, she also stated that she has bilateral lower extremity pain. Past medical history significant for esophageal cancer and dementia - Physicial Exam PE: 11/15/18 19:[address] Clarence Myers's physical exam - Medical Decision Making 11/15/18 18:59 83 female brought in by ambulance from the senior care because she has esophageal cancer and has not been able to take by mouth was for some time. They do state that she coughs or chokes and spits up anything given to her and she has been losing weight she Has had no treatment of her esophageal cancer to date. Past medical history significant for dementia complaining of lower extremity pain, but the senior care said she has been complaining of abdominal pain . They are6 of greater than 25,000. Her chemistries show any acute kidney failure and she has a lactic acid above 5 Clinically severely dehydrated. We'll start IV fluids and admit , needs swallowing evaluation 11/15/18 19:04 hgb=8,5 hct=27 she has a history of anemia 11/15/18 19:04 cxr napd, hiatal hernia
[2018-11-15 18:22] LABS: BASO % 0.2 % (0-2.0); HEMATOCRIT 28.2 % (32.4-45.2); HEMOGLOBIN 8.5 GM/dL (10.7-15.3); LYMPH % 2.1 % (8-40); MCH 21.6 pg (25.7-33.7); MCHC 30.2 g/dl (32.0-36.0); MEAN CELL VOLUME 71.5 fl (80-96); MONO % 3.5 % (3.8-10.2); NEUT % 94.2 % (42.8-82.8); PLATELET COUNT 454 K/MM3 (134-434); RBC 3.95 M/mm3 (3.60-5.2); RDW 24.7 % (11.6-15.6); WHITE BLOOD COUNT 25.2 K/mm3 (4.0-10.0)
[2018-11-15] MEDS ORDERED: SODIUM CHLORIDE 0.9% 500 ML INFUS.BAG IV ONE ×2 (18:29→22:20)
[2018-11-15 21:22] LABS: ANISOCYTOSIS 3+; MACROCYTOSIS 1+; SMUDGE CELLS FEW
[2018-11-15 21:23] LABS: OVALOCYTE 1+; PLATELET ESTIMATE NORMAL
[2018-11-16] MEDS ORDERED: CEFTRIAXONE 1,000 MG in DEXTROSE 5%-WATER - 50 ML IVPB STA (01:35)
[2018-11-16] MEDS ORDERED: CEFTRIAXONE 1 GM/50 ML BAG ONE (01:38)
--- NOTE | 2018-11-16 02:00 | PN ---
Teaching Attending Note Name of Resident: Ely Gaitan ATTENDING PHYSICIAN STATEMENT I saw and evaluated the patient. I reviewed the resident's note and discussed the case with the resident. I agree with the resident's findings and plan as documented. SUBJECTIVE: Patient is an 83 year old woman with PMH of Alzheimer's dementia, Untreated esophageal cancer (unable to tolerate po intake), HTN, GERD and COPD [facility] with abdominal pain and leg pain. She denies any pain at this time. She has dementia and cannot provide history. ER staff called [facility], discussed case with her nurse. Per nurse, patient began to report severe abdominal pain today, but while being wheeled out of the facility reported that she had no abdominal pain, but had leg pain. Her nurse reports that Ms. Paulson has been unable to tolerate food by mouth due to the esophageal cancer. They report that her entire nutrition has been small amounts of maxwell isauro, which she often vomits after attempting to drink. No measured fevers, and no urinary issues as per the nurse. OBJECTIVE: Vital Signs Period Temp Pulse Resp BP Sys/Jaimes Pulse Ox Last 24 Hr 97.6 F 109 20 110/83 100 HEENT: No Jaundice, eye redness or discharge, PERRLA, EOMI. Normocephalic, atraumatic. External ears are normal and hearing is grossly intact. No nasal discharge. Neck: Supple, nontender. No palpable adenopathy or thyromegaly. No JVD Chest: Good effort. Clear to auscultation and percussion. Heart: Regular. No S3, rub; 2/6 HSM. Abdomen: Slightly distended, soft, nontender and no HSM. No rebound or guarding. Normal bowel sounds. Ext: Peripheral pulses intact. No leg edema. Skin: Warm and dry. No petechiae, rash or ecchymosis. Neuro: Alert. Oriented to person and place. CN 2-12 grossly intact. Sensation grossly intact in all four extremities and DTR are symmetric. Psych: Appropriate mood and affect. Good insight. Home Medications Medication Instructions Recorded Albuterol 2.5/Ipratropium 0.5 1 neb NEB Q8H PRN 06/09/18 [Duoneb -] Amlodipine Besylate 5 mg PO DAILY 06/09/18 Ascorbic Acid [Vitamin C -] 500 mg PO BID 06/09/18 Carbamide Peroxide [Debrox] 15 ml DAILY 06/09/18 Docusate Sodium [Colace] 300 mg PO HS 06/09/18 Ferrous Sulfate 325 mg PO BID 06/09/18 Folic Acid 1 mg PO DAILY 06/09/18 Levothyroxine [Synthroid -] 25 mcg PO DAILY 06/09/18 Magnesium Hydroxide [Milk of 400 mg PO DAILY 06/09/18 Magnesia] Mirtazapine [Remeron -] 30 mg PO DAILY 06/09/18 Polyethylene Glycol 3350 [Miralax 17 g PO BID 06/09/18 119 gm Btl -] Potassium Chloride [K-Dur -] 20 meq PO BID 06/09/18 Sennosides [Senna] 8.6 mg PO DAILY 06/09/18 Sodium Chloride 1,000 mg PO Q6H 06/09/18 Aripiprazole [Abilify -] 2 mg PO DAILY 10/25/18 Epoetin Wally [Procrit -] 10,000 unit SQ WEEKLY 10/25/18 Guaifenesin AC [Robitussin AC -] 20 ml PO Q8H 10/25/18 Nystatin Oral Suspension - 500,000 units PO Q6H 10/25/18 [Nystatin Oral Susp 631225 Units/5 ML -] Omeprazole Magnesium [Prilosec Otc] 20 mg PO DAILY 10/25/18 Furosemide [Lasix] 20 mg PO DAILY #30 tablet 10/26/18 Abnormal Lab Results 11/15/18 11/15/18 11/15/18 16:52 16:53 16:53 WBC 25.2 H Hgb 8.5 L Hct 28.2 L MCV 71.5 L MCH 21.6 L MCHC 30.2 L RDW 24.7 H Plt Count 454 H Absolute Neuts (auto) 23.8 H Neutrophils % 94.2 H Neutrophils % (Manual) 92.0 H Lymphocytes % 2.1 L D Lymphocytes % (Manual) 2.0 L Monocytes % 3.5 L Monocytes % (Manual) 2 L Anion Gap 17 H BUN 67.4 H Creatinine 2.0 H Random Glucose 153 H Lactic Acid 5.1 H* AST 14 L ALT 11 L Albumin 2.7 L Urine Protein Urine Ketones Urine Blood 11/16/18 01:26 WBC Hgb Hct MCV MCH MCHC RDW Plt Count Absolute Neuts (auto) Neutrophils % Neutrophils % (Manual) Lymphocytes % Lymphocytes % (Manual) Monocytes % Monocytes % (Manual) Anion Gap BUN Creatinine Random Glucose Lactic Acid AST ALT Albumin Urine Protein 1+ H Urine Ketones Trace H Urine Blood 2+ H ASSESSMENT AND PLAN: 1. Sepsis of unknown source - No acute chest pathology on CXR. Patient is at risk for aspiration. Will get a chest and abdomen/pelvis CT. Sepsis has been done. Will treat with IV NS, zosyn and linezolid and trend lactic acid. EKG is NSR with first degree AV block. Check Mg level and give IV KCL. Will continue comprehensive care for all of patients comorbid conditions. 2. Hypoalbuminemia - Possibly due to combined effects of proteinuria, malnutrition and inflammation associated with comorbid chronic conditions. Will ensure adequate dietary protein intake and also consult can carrier. Patient is underweight/undernourished - during the day will discuss other options for feeding (?PEG) with PCP and the [facility]. 3. MAGDALENE - May be dehydrated due to poor intake and lasix therapy. Will get kidney sonogram, CPK, hydrate gently and monitor urine output. Consult nephrology and avoid nephrotoxic agents such as NSAIDS, aminoglycosides, contrast dyes and certain Alternative medicine products. 4. Anemia -Cause unclear. Will do basic anemia work up including serial stool guaiacs, reticulocyte count and iron studies. 5. Polypharmacy - Will liaise with patient's PCP to discontinue medications that are not absolutely essential. 6. Hypertension - Restart suitable outpatient antihypertensive drugs when clinically appropriate. Revise regimen to ensure [id number] excellent BP control and certified alcohol drug counselor patient on the injurious effects of uncontrolled hypertension. Nonpharmacologic measures to control hypertension like weight loss , salt restriction and exercise discussed. Importance of adherence to treatment regimen and attainment of normotension emphasized. 7. DVT prophylaxis - Heparin 5000u sq tid. 8. Advance directives - Full code
[2018-11-16 02:03] LABS: EPI CELLS 4.8 /HPF (0-5/HPF); HYALINE CASTS 17 /lpf (0-8); URINE APPEARANCE TURBID; URINE BACTERIA 678.7 /hpf (NEGATIVE); URINE BILIRUBIN NEGATIVE (NEGATIVE); URINE COLOR YELLOW; URINE GLUCOSE (UA) NEGATIVE (NEGATIVE); URINE KETONE TRACE (NEGATIVE); URINE LEUK ESTERASE TRACE (NEGATIVE); URINE NITRITE NEGATIVE (NEGATIVE); URINE PROTEIN 1+ (NEGATIVE); URINE RBC 0 /hpf (0-4); URINE WBC 2 /hpf (0-5)
--- NOTE | 2018-11-16 02:45 | PDOC ---
*Physical Exam - Vital Signs Last Vital Signs Temp Pulse Resp BP Pulse Ox 97.6 F 109 H 20 110/83 100 11/15/18 16:57 11/15/18 14:41 11/15/18 14:41 11/15/18 14:41 11/15/18 14:41 ED Treatment Course - LABORATORY CBC & Chemistry Diagram: 11/15/18 16:52 11/15/18 16:53 - ADDITIONAL ORDERS Additional order review: Laboratory Results 11/16/18 11/15/18 11/15/18 01:26 23:30 16:53 Sodium Potassium Chloride Carbon Dioxide Anion Gap BUN Creatinine Est GFR (CKD-EPI)AfAm Est GFR (CKD-EPI)NonAf Random Glucose Lactic Acid 1.3 5.1 H* Calcium Total Bilirubin AST ALT Alkaline Phosphatase Creatine Kinase Troponin I Total Protein Albumin Urine Color Yellow Urine Appearance Turbid Urine pH 6.0 Ur Specific Ferguson 1.019 Urine Protein 1+ H Urine Glucose (UA) Negative Urine Ketones Trace H Urine Blood 2+ H Urine Nitrite Negative Urine Bilirubin Negative Urine Urobilinogen 1.0 Ur Leukocyte Esterase Trace Urine WBC (Auto) 2 Urine RBC (Auto) 0 Urine Casts (Auto) 17 U Epithel Cells (Auto) 4.8 Urine Bacteria (Auto) 678.7 11/15/18 16:53 Sodium 139 Potassium 3.7 Chloride 100 Carbon Dioxide 22 Anion Gap 17 H BUN 67.4 H Creatinine 2.0 H Est GFR (CKD-EPI)AfAm 26.28 Est GFR (CKD-EPI)NonAf 22.68 Random Glucose 153 H Lactic Acid Calcium 9.3 Total Bilirubin 0.5 AST 14 L ALT 11 L Alkaline Phosphatase 100 Creatine Kinase 56 Troponin I 0.02 Total Protein 7.4 Albumin 2.7 L Urine Color Urine Appearance Urine pH Ur Specific Ferguson Urine Protein Urine Glucose (UA) Urine Ketones Urine Blood Urine Nitrite Urine Bilirubin Urine Urobilinogen Ur Leukocyte Esterase Urine WBC (Auto) Urine RBC (Auto) Urine Casts (Auto) U Epithel Cells (Auto) Urine Bacteria (Auto) 11/15/18 16:52 RBC 3.95 MCV 71.5 L MCHC 30.2 L RDW 24.7 H MPV 8.0 D Neutrophils % 94.2 H Lymphocytes % 2.1 L D Monocytes % 3.5 L Eosinophils % 0.0 D Basophils % 0.2 - Medications Given in the ED: ED Medications Discontinued Medications Generic Name Dose Route Start Last Admin Trade Name Marissa PRN Reason Stop Dose Admin Ceftriaxone Sodium 1,000 mg/ 50 mls @ 100 mls/hr 11/16/18 01:35 11/16/18 01: 42 Dextrose IVPB 11/16/18 02:04 100 mls/hr ONCE STA Administration Sodium Chloride 1,000 ml 11/15/18 18:29 11/15/18 18:38 Normal Saline - IV 11/15/18 18:30 1,000 ml ONCE ONE Administration Sodium Chloride 1,000 ml 11/15/18 22:20 11/15/18 22:34 Normal Saline - IV 11/15/18 22:21 1,000 ml ONCE ONE Administration Medical Decision Making - Medical Decision Making 11/16/18 04:11 Received on signout from Dr Lee 83 F with hx severe alzheimers dementia, esophageal CA unable to tolerate anything by mouth [facility] and leg pain, not reporting any pain at this time, nontender with normal bowel sounds. Worked up for sepsis concern and found to have WBC 25.2 -signed out to attempt straight cath and followup UA -Mccarthy inserted successfully and UA sent 11/16/18 04:13 UA with 678 bacteria, trace leuk esterase and blood Given 1g ceftriaxone admitted to Dr Prado for sepsis with unknown source from ?UTI Of note, patient will require case management for esophageal cancer that has unknown followup and nutrition inadequate given inability to tolerate PO *DC/Admit/Observation/Transfer Diagnosis at time of Disposition: SIRS (systemic inflammatory response syndrome) - Discharge Dispostion Condition at time of disposition: Stable - Referrals Referrals: Vince Amos MD [Primary Care Provider] - - Patient Instructions - Post Discharge Activity
[2018-11-16] MEDS ORDERED: LINEZOLID 600 MG PREMIX BAG 600 MG in PREMIX 300 IVPB SCH (05:00)
[2018-11-16 06:34] LABS: ALBUMIN 2.4 g/dl (3.4-5.0); BILIRUBIN,TOTAL 0.4 mg/dL (0.2-1); BLOOD UREA NITROGEN 60.4 mg/dL (7-18); CALCIUM 8.4 mg/dL (8.5-10.1); CREATININE 1.5 mg/dL (0.55-1.3); MAGNESIUM 2.5 mg/dL (1.8-2.4); POTASSIUM 3.1 mmol/L (3.5-5.1); TOT PROT 6.4 g/dl (6.4-8.2)
[2018-11-16] MEDS: HEPARIN NA (PORCINE) 5,000 UNITS/ML 1ML VIAL SQ SCH ×3 (06:37→21:50)
[2018-11-16] MEDS: LINEZOLID 600 MG PREMIX BAG 600 MG/300 ML BAG IVPB ONE ×2 (06:37→10:44)
[2018-11-16] MEDS ORDERED: SODIUM CHLORIDE 1,000 ML IV SCH (06:45)
--- NOTE | 2018-11-16 06:48 | HP ---
CHIEF COMPLAINT: Abdominal pain for 1 day PCP: HISTORY OF PRESENT ILLNESS: This is an 83 year old female with PMH significant for Alzheimer's dementia, esophageal CA, HTN, and COPD. She was brought from [facility] with complaints of abdominal and leg pain for the past few hours. The patient is unable to provide a complete or accurate history due to her dementia. As per nurse, the patient reported severe abdominal pain and leg pain earlier today, but is not currently complaining of any pain. Her nurse states that she has been unable to tolerate food by mouth due to the esophageal cancer, and her diet has mostly consisted of small amounts of maxwell isauro, which she often vomits after attempting to drink. No recorded fevers or change in urination has been reported by the nurse. ER course was notable for: (1) WBC 25 LA 5.1 -> 1.3 (2) Ceftriaxone 1g (3) BUN:Cr 67.4/ 2.0 Recent Travel: Patient unable to provide accurate answer PAST MEDICAL HISTORY: Alzheimer's dementia, esophageal CA, HTN, and COPD PAST SURGICAL HISTORY: Patient unable to provide accurate answer Social History: Patient unable to provide accurate answer Smoking: Alcohol: Drugs: Family History: Patient unable to provide accurate answer Allergies No Known Allergies Allergy (Verified 06/09/18 15:55) HOME MEDICATIONS: Home Medications Medication Instructions Recorded Albuterol 2.5/Ipratropium 0.5 1 neb NEB Q8H PRN 06/09/18 [Duoneb -] Amlodipine Besylate 5 mg PO DAILY 06/09/18 Ascorbic Acid [Vitamin C -] 500 mg PO BID 06/09/18 Carbamide Peroxide [Debrox] 10 ml DAILY 06/09/18 Docusate Sodium [Colace] 300 mg PO HS 06/09/18 Ferrous Sulfate 325 mg PO BID 06/09/18 Folic Acid 1 mg PO DAILY 06/09/18 Levothyroxine [Synthroid -] 25 mcg PO DAILY 06/09/18 Magnesium Hydroxide [Milk of 400 mg PO DAILY 06/09/18 Magnesia] Mirtazapine [Remeron -] 30 mg PO DAILY 06/09/18 Polyethylene Glycol 3350 [Miralax 17 g PO BID 06/09/18 119 gm Btl -] Potassium Chloride [K-Dur -] 20 meq PO BID 06/09/18 Sennosides [Senna] 8.6 mg PO DAILY 06/09/18 Sodium Chloride 1,000 mg PO Q6H 06/09/18 Aripiprazole [Abilify -] 2 mg PO DAILY 10/25/18 Epoetin Wally [Procrit -] 10,000 unit SQ WEEKLY 10/25/18 Omeprazole Magnesium [Prilosec Otc] 20 mg PO DAILY 10/25/18 Bacitracin - [Bacitracin Topical 1 applic TP DAILY 11/16/18 Ointment -] Guaifenesin [Mucinex] 600 mg PO QID 11/16/18 Metoclopramide HCl [Reglan] 5 mg PO BID 11/16/18 REVIEW OF SYSTEMS CONSTITUTIONAL: Absent: fever, chills, diaphoresis, generalized weakness, malaise, loss of appetite, weight change HEENT: Absent: rhinorrhea, nasal congestion, throat pain, throat swelling, difficulty swallowing, mouth swelling, ear pain, eye pain, visual changes CARDIOVASCULAR: Absent: chest pain, syncope, palpitations, irregular heart rate, lightheadedness , peripheral edema RESPIRATORY: Absent: cough, shortness of breath, dyspnea with exertion, orthopnea, wheezing, stridor, hemoptysis GASTROINTESTINAL: Absent: abdominal pain, abdominal distension, nausea, vomiting, diarrhea, constipation, melena, hematochezia GENITOURINARY: Absent: dysuria, frequency, urgency, hesitancy, hematuria, flank pain, genital pain MUSCULOSKELETAL: Absent: myalgia, arthralgia, joint swelling, back pain, neck pain SKIN: Absent: rash, itching, pallor HEMATOLOGIC/IMMUNOLOGIC: Absent: easy bleeding, easy bruising, lymphadenopathy, frequent infections ENDOCRINE: Absent: unexplained weight gain, unexplained weight loss, heat intolerance, cold intolerance NEUROLOGIC: Absent: headache, focal weakness or paresthesias, dizziness, unsteady gait, seizure, mental status changes, bladder or bowel incontinence PSYCHIATRIC: Absent: anxiety, depression, suicidal or homicidal ideation, hallucinations. PHYSICAL EXAMINATION Vital Signs - 24 hr 11/15/18 11/15/18 11/15/18 14:41 16:57 22:48 Temperature 97.6 F Pulse Rate 109 H Pulse Rate [ 88 Apical] Respiratory 20 20 Rate Blood Pressure 110/83 Blood Pressure 120/78 [Left Arm] O2 Sat by Pulse 100 97 Oximetry (%) 11/16/18 04:29 Temperature Pulse Rate Pulse Rate [ 87 Apical] Respiratory 20 Rate Blood Pressure Blood Pressure 121/75 [Left Arm] O2 Sat by Pulse 96 Oximetry (%) GENERAL: AOx2, cachectic appearance HEAD: Normal with no signs of trauma. EYES: Pupils equal, round and reactive to light, extraocular movements intact, sclera anicteric, conjunctiva clear. No lid lag. EARS, NOSE, THROAT: Ears normal, nares patent, oropharynx clear without exudates. Moist mucous membranes. NECK: Normal range of motion, supple without lymphadenopathy, JVD, or masses. LUNGS: Breath sounds equal, clear to auscultation bilaterally. No wheezes, and no crackles. No accessory muscle use. HEART: Regular rate and rhythm, normal S1 and S2 without murmur, rub or gallop. ABDOMEN: Soft, nontender, not distended, normoactive bowel sounds, no guarding, no rebound, no masses. No hepatomegaly or splenomegaly. MUSCULOSKELETAL: Normal range of motion at all joints. No bony deformities or tenderness. No CVA tenderness. UPPER EXTREMITIES: 2+ pulses, warm, well-perfused. No cyanosis. No clubbing. No peripheral edema. LOWER EXTREMITIES: 2+ pulses, warm, well-perfused. No calf tenderness. No peripheral edema. NEUROLOGICAL: motor strength 5/5 B/L SKIN: no ulcers in sacrum or extremities Laboratory Results - last 24 hr 11/15/18 11/15/18 11/15/18 16:52 16:53 16:53 WBC 25.2 H RBC 3.95 Hgb 8.5 L Hct 28.2 L MCV 71.5 L MCH 21.6 L MCHC 30.2 L RDW 24.7 H Plt Count 454 H MPV 8.0 D Absolute Neuts (auto) 23.8 H Neutrophils % 94.2 H Neutrophils % (Manual) 92.0 H Band Neutrophils % 2.0 Lymphocytes % 2.1 L D Lymphocytes % (Manual) 2.0 L Monocytes % 3.5 L Monocytes % (Manual) 2 L Eosinophils % 0.0 D Basophils % 0.2 Basophils % (Manual) 1.0 Nucleated RBC % 0 Metamyelocytes 1 Smudge Cells Few Hypochromia 2+ Platelet Estimate Normal Platelet Comment No clumping noted Polychromasia 1+ Poikilocytosis 1+ Anisocytosis 3+ Microcytosis 3+ Macrocytosis 1+ Ovalocytes 1+ Acanthocytes (Spur) 1+ Sodium 139 Potassium 3.7 Chloride 100 Carbon Dioxide 22 Anion Gap 17 H BUN 67.4 H Creatinine 2.0 H Est GFR (CKD-EPI)AfAm 26.28 Est GFR (CKD-EPI)NonAf 22.68 Random Glucose 153 H Lactic Acid 5.1 H* Calcium 9.3 Total Bilirubin 0.5 AST 14 L ALT 11 L Alkaline Phosphatase 100 Creatine Kinase 56 Troponin I 0.02 Total Protein 7.4 Albumin 2.7 L Urine Color Urine Appearance Urine pH Ur Specific Norvell Urine Protein Urine Glucose (UA) Urine Ketones Urine Blood Urine Nitrite Urine Bilirubin Urine Urobilinogen Ur Leukocyte Esterase Urine WBC (Auto) Urine RBC (Auto) Urine Casts (Auto) U Epithel Cells (Auto) Urine Bacteria (Auto) 11/15/18 11/16/18 23:30 01:26 WBC RBC Hgb Hct MCV MCH MCHC RDW Plt Count MPV Absolute Neuts (auto) Neutrophils % Neutrophils % (Manual) Band Neutrophils % Lymphocytes % Lymphocytes % (Manual) Monocytes % Monocytes % (Manual) Eosinophils % Basophils % Basophils % (Manual) Nucleated RBC % Metamyelocytes Smudge Cells Hypochromia Platelet Estimate Platelet Comment Polychromasia Poikilocytosis Anisocytosis Microcytosis Macrocytosis Ovalocytes Acanthocytes (Spur) Sodium Potassium Chloride Carbon Dioxide Anion Gap BUN Creatinine Est GFR (CKD-EPI)AfAm Est GFR (CKD-EPI)NonAf Random Glucose Lactic Acid 1.3 Calcium Total Bilirubin AST ALT Alkaline Phosphatase Creatine Kinase Troponin I Total Protein Albumin Urine Color Yellow Urine Appearance Turbid Urine pH 6.0 Ur Specific Norvell 1.019 Urine Protein 1+ H Urine Glucose (UA) Negative Urine Ketones Trace H Urine Blood 2+ H Urine Nitrite Negative Urine Bilirubin Negative Urine Urobilinogen 1.0 Ur Leukocyte Esterase Trace Urine WBC (Auto) 2 Urine RBC (Auto) 0 Urine Casts (Auto) 17 U Epithel Cells (Auto) 4.8 Urine Bacteria (Auto) 678.7 ASSESSMENT/PLAN: 83 year old female with PMH significant for Alzheimer's dementia, esophageal CA , HTN, and COPD. She was brought from [facility] with complaints of abdominal and leg pain for the past few hours, but states that she is currently pain free. #Sepsis - SIRS 2, meets criteria - Blood/urine cx ordered - CT Chest/Abdomen ordered - Zosyn and Linezolid (will avoid Vanco due to poor renal function) - ID consult placed #MAGDALENE - BUN Cr 67.4/2.0 - Renal US ordered - Avoid nephrotoxic drugs - Gentle hydration - Renal consult placed #FEN - N/S @ 50 - Clear liquids #DVT PE - Heparin 5000 SQ Visit type - Emergency Visit Emergency Visit: Yes ED Registration Date: 11/16/18 Care time: The patient presented to the Emergency Department on the above date and was hospitalized for further evaluation of their emergent condition. - New Patient This patient is new to me today: Yes Date on this admission: 11/16/18 - Critical Care Critical Care patient: No ATTENDING PHYSICIAN STATEMENT I saw and evaluated the patient. I reviewed the resident's note and discussed the case with the resident. I agree with the resident's findings and plan as documented. SUBJECTIVE: OBJECTIVE: ASSESSMENT AND PLAN:
[2018-11-16] MEDS ORDERED: PIPERACILLIN/TAZOB 2.25 GM 2.25 GM in DEXTROSE 5%-WATER - 50 ML IVPB SCH (10:00)
[2018-11-16 10:01] VITALS: BMI 12.0
[2018-11-16] MEDS ORDERED: ALBUTEROL SO4 2.5/IPRATROPIUM 0.5 INH SOL 3 ML VIAL.NEB. NEB PRN (11:58)
[2018-11-16] MEDS ORDERED: MIRTAZAPINE 30 MG TABLET (FP) PO SCH (12:00)
--- NOTE | 2018-11-16 12:07 | PN ---
Progress Note (short form) - Note Progress Note: Events noted Pt wants to go home She does not complain of abdominal pain poor appetite coughing+ no SOB confused Vital Signs - 24 hr 11/15/18 11/15/18 11/15/18 14:41 16:57 22:48 Temperature 97.6 F Pulse Rate 109 H Pulse Rate [ 88 Apical] Respiratory 20 20 Rate Blood Pressure 110/83 Blood Pressure 120/78 [Left Arm] O2 Sat by Pulse 100 97 Oximetry (%) 11/16/18 11/16/18 04:29 09:51 Temperature 97.7 F Pulse Rate 91 H Pulse Rate [ 87 Apical] Respiratory 20 18 Rate Blood Pressure 130/76 Blood Pressure 121/75 [Left Arm] O2 Sat by Pulse 96 96 Oximetry (%) Current Medications Generic Name Dose Route Start Last Admin Trade Name Freq PRN Reason Stop Dose Admin Albuterol/Ipratropium 1 amp 11/16/18 11:58 Duoneb - NEB Q8H PRN SHORTNESS OF BREATH Amlodipine Besylate 5 mg 11/17/18 10:00 Norvasc - PO DAILY PRICILA Aripiprazole 2 mg 11/16/18 12:00 Abilify PO DAILY PRICILA Heparin Sodium (Porcine) 5,000 unit 11/16/18 06:00 11/16/18 06:37 Heparin - SQ Not Given TID PRICILA Linezolid 600 mg/ 300 mls @ 300 mls/hr 11/16/18 05:00 Miscellaneous IVPB Q12H PRICILA Protocol Piperacillin Sod/Tazobactam 50 mls @ 100 mls/hr 11/16/18 10:00 Sod 2.25 gm/ Dextrose IVPB Q8H-IV PRICILA Protocol Sodium Chloride 1,000 mls @ 50 mls/hr 11/16/18 06:45 11/16/18 08:15 Normal Saline - IV 11/17/18 06:43 50 mls/hr ASDIR PRICILA Administration Levothyroxine Sodium 25 mcg 11/17/18 10:00 Synthroid - PO DAILY PRICILA Mirtazapine 30 mg 11/16/18 12:00 Remeron - PO DAILY PRICILA Laboratory Results - last 24 hr 11/15/18 11/15/18 11/15/18 16:52 16:53 16:53 WBC 25.2 H Corrected WBC (auto) RBC 3.95 Hgb 8.5 L Hct 28.2 L MCV 71.5 L MCH 21.6 L MCHC 30.2 L RDW 24.7 H Plt Count 454 H MPV 8.0 D Absolute Neuts (auto) 23.8 H Neutrophils % 94.2 H Neutrophils % (Manual) 92.0 H Band Neutrophils % 2.0 Lymphocytes % 2.1 L D Lymphocytes % (Manual) 2.0 L Monocytes % 3.5 L Monocytes % (Manual) 2 L Eosinophils % 0.0 D Basophils % 0.2 Basophils % (Manual) 1.0 Nucleated RBC % 0 Metamyelocytes 1 Smudge Cells Few Hypochromia 2+ Platelet Estimate Normal Platelet Comment No clumping noted Polychromasia 1+ Poikilocytosis 1+ Anisocytosis 3+ Microcytosis 3+ Macrocytosis 1+ Ovalocytes 1+ Acanthocytes (Spur) 1+ Sodium 139 Potassium 3.7 Chloride 100 Carbon Dioxide 22 Anion Gap 17 H BUN 67.4 H Creatinine 2.0 H Est GFR (CKD-EPI)AfAm 26.28 Est GFR (CKD-EPI)NonAf 22.68 Random Glucose 153 H Lactic Acid 5.1 H* Calcium 9.3 Magnesium Total Bilirubin 0.5 AST 14 L ALT 11 L Alkaline Phosphatase 100 Creatine Kinase 56 Troponin I 0.02 Total Protein 7.4 Albumin 2.7 L Urine Color Urine Appearance Urine pH Ur Specific Otho Urine Protein Urine Glucose (UA) Urine Ketones Urine Blood Urine Nitrite Urine Bilirubin Urine Urobilinogen Ur Leukocyte Esterase Urine WBC (Auto) Urine RBC (Auto) Urine Casts (Auto) U Epithel Cells (Auto) Urine Bacteria (Auto) 11/15/18 11/16/18 11/16/18 23:30 01:26 05:35 WBC Cancelled Corrected WBC (auto) Cancelled RBC Cancelled Hgb Cancelled Hct Cancelled MCV Cancelled MCH Cancelled MCHC Cancelled RDW Cancelled Plt Count Cancelled MPV Cancelled Absolute Neuts (auto) Cancelled Neutrophils % Cancelled Neutrophils % (Manual) Band Neutrophils % Lymphocytes % Cancelled Lymphocytes % (Manual) Monocytes % Cancelled Monocytes % (Manual) Eosinophils % Cancelled Basophils % Cancelled Basophils % (Manual) Nucleated RBC % Cancelled Metamyelocytes Smudge Cells Hypochromia Platelet Estimate Cancelled Platelet Comment Cancelled Polychromasia Poikilocytosis Anisocytosis Microcytosis Macrocytosis Ovalocytes Acanthocytes (Spur) Sodium Potassium Chloride Carbon Dioxide Anion Gap BUN Creatinine Est GFR (CKD-EPI)AfAm Est GFR (CKD-EPI)NonAf Random Glucose Lactic Acid 1.3 Calcium Magnesium Total Bilirubin AST ALT Alkaline Phosphatase Creatine Kinase Troponin I Total Protein Albumin Urine Color Yellow Urine Appearance Turbid Urine pH 6.0 Ur Specific Otho 1.019 Urine Protein 1+ H Urine Glucose (UA) Negative Urine Ketones Trace H Urine Blood 2+ H Urine Nitrite Negative Urine Bilirubin Negative Urine Urobilinogen 1.0 Ur Leukocyte Esterase Trace Urine WBC (Auto) 2 Urine RBC (Auto) 0 Urine Casts (Auto) 17 U Epithel Cells (Auto) 4.8 Urine Bacteria (Auto) 678.7 11/16/18 05:35 WBC Corrected WBC (auto) RBC Hgb Hct MCV MCH MCHC RDW Plt Count MPV Absolute Neuts (auto) Neutrophils % Neutrophils % (Manual) Band Neutrophils % Lymphocytes % Lymphocytes % (Manual) Monocytes % Monocytes % (Manual) Eosinophils % Basophils % Basophils % (Manual) Nucleated RBC % Metamyelocytes Smudge Cells Hypochromia Platelet Estimate Platelet Comment Polychromasia Poikilocytosis Anisocytosis Microcytosis Macrocytosis Ovalocytes Acanthocytes (Spur) Sodium 144 Potassium 3.1 L Chloride 108 H Carbon Dioxide 25 Anion Gap 10 BUN 60.4 H Creatinine 1.5 H Est GFR (CKD-EPI)AfAm 37.21 Est GFR (CKD-EPI)NonAf 32.11 Random Glucose 93 Lactic Acid Calcium 8.4 L Magnesium 2.5 H Total Bilirubin 0.4 AST 126 H ALT 39 Alkaline Phosphatase 86 Creatine Kinase Troponin I Total Protein 6.4 Albumin 2.4 L Urine Color Urine Appearance Urine pH Ur Specific Otho Urine Protein Urine Glucose (UA) Urine Ketones Urine Blood Urine Nitrite Urine Bilirubin Urine Urobilinogen Ur Leukocyte Esterase Urine WBC (Auto) Urine RBC (Auto) Urine Casts (Auto) U Epithel Cells (Auto) Urine Bacteria (Auto) S1 S2 RRR Lungs decreased Abd-soft, NT No edema PLAN replace potassium iv fluids add potassium to the fluids encourage PO pt is DNR/DNI and do not hospitlize will call palliative consult keep pt comfortable IV antibiotics cultures pending pt has esophageal cancer Problem List - Problems (1) SIRS (systemic inflammatory response syndrome) Code(s): R65.10 - SIRS OF NON-INFECTIOUS ORIGIN W/O ACUTE ORGAN DYSFUNCTION (2) Anemia Code(s): D64.9 - ANEMIA, UNSPECIFIED Qualifiers: Anemia type: iron deficiency (3) Esophageal cancer Code(s): C15.9 - MALIGNANT NEOPLASM OF ESOPHAGUS, UNSPECIFIED (4) HTN (hypertension) Code(s): I10 - ESSENTIAL (PRIMARY) HYPERTENSION (5) Hypothyroidism Code(s): E03.9 - HYPOTHYROIDISM, UNSPECIFIED
[2018-11-16] MEDS ORDERED: SODIUM CHLORIDE 0.9%/KCL 20 MEQ/1,000 ML INFUS.BAG IV SCH (12:08)
[2018-11-16] MEDS ORDERED: POTASSIUM CHLORIDE ORAL LIQUID 20 MEQ/15 ML PO ONE (12:08)
[2018-11-16 12:21] LABS: BASO % 0.1 % (0-2.0); HEMATOCRIT 22.2 % (32.4-45.2); LYMPH % 3.7 % (8-40); MCH 21.9 pg (25.7-33.7); MCHC 30.7 g/dl (32.0-36.0); MEAN CELL VOLUME 71.6 fl (80-96); MEAN PLT VOLUME 7.8 fl (7.5-11.1); MONO % 2.9 % (3.8-10.2); NEUT % 93.3 % (42.8-82.8); PLATELET COUNT 287 K/MM3 (134-434); RDW 24.4 % (11.6-15.6); WHITE BLOOD COUNT 14.7 K/mm3 (4.0-10.0)
[2018-11-16 12:31] LABS: HEMOGLOBIN 6.8 GM/dL (10.7-15.3)
[2018-11-16] MEDS ORDERED: MIRTAZAPINE 15 MG TABLET (FP) ONE ×2 (13:02→20:57)
--- NOTE | 2018-11-16 13:03 | EKG ---
Test Reason : Blood Pressure : / mmHG Vent. Rate : 094 BPM Atrial Rate : 094 BPM P-R Int : 212 ms QRS Dur : 072 ms QT Int : 360 ms P-R-T Axes : 059 014 095 degrees QTc Int : 450 ms POOR DATA QUALITY, INTERPRETATION MAY BE ADVERSELY AFFECTED SINUS RHYTHM WITH 1ST DEGREE A-V BLOCK Too much artifact for further interpretation Confirmed by MD Lance, Tavares ([id number]) on 11/16/2018 1:03:19 PM Referred By: Confirmed By:Tavares Lucas MD
--- NOTE | 2018-11-16 13:07 | PN ---
Progress Note (short form) - Note Progress Note: ID CONSULT DICTATED LEUKOCYTOSIS , LACTIC ACIDOSIS R/O SEPSIS ? ASPIRATION ? gu SOURCE ANEMIA AZOTEMIA HX ESOPHAGEAL CA OBS PENDING SEPSIS W/U EMPIRIC [id number]
[2018-11-16] MEDS ORDERED: DEXTROSE 5%-WATER 100 ML IVPB ONE (13:12)
[2018-11-16] MEDS: CEFTRIAXONE 2 GM in DEXTROSE 5%-WATER 100 ML IVPB SCH (13:15)
[2018-11-16 13:35] LABS: ANISOCYTOSIS 1+; MACROCYTOSIS 0; OVALOCYTE 1+; PLATELET ESTIMATE NORMAL
[2018-11-16] MEDS: ARIPiprazole 2 MG TABLET PO SCH (14:11)
--- NOTE | 2018-11-16 14:55 | CONS ---
INFECTIOUS DISEASE CONSULTATION DATE OF CONSULTATION: DATE OF DICTATION: 11/16/2018 HISTORY OF PRESENT ILLNESS: The patient is an 83-year-old female who was admitted to the hospital on November 15, 2018, from the custodial after reports of abdominal pain and leg pain. She had apparently been having poor oral intake at the custodial with weight loss. She has a history of esophageal cancer. Upon evaluation in the emergency room, patient denied abdominal pain; however, did complain of leg pain. She suffers from dementia and cannot give a reliable history. She was noted to have a white blood cell count of 25,000. 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 Initial lab work showed a marked leukocytosis and lactic acidosis. She was empirically treated with Zosyn and linezolid. At the present time, she is awake and responsive; however, she is confused. She offers no focal complaints. She just repeats wanting to go home. No reports of high-grade fever or shaking chills, labored breathing, cough, vomiting, diarrhea or infected decubitus ulcers. PAST MEDICAL HISTORY: Positive for dementia, esophageal cancer, hypertension, gastroesophageal reflux, COPD. ALLERGIES: No known allergies. MEDICATIONS: Albuterol, amlodipine, ceftriaxone, levothyroxine, Remeron, Zosyn, linezolid. SOCIAL HISTORY: Patient resides in a [facility] facility. Suffers from dementia. She is dependent in activities of daily living. Former smoker. SYSTEMS REVIEW: Neurologic: Positive for dementia. No loss of consciousness, seizure activity or focal weakness. Cardiac: Negative chest pain or palpitations. Respiratory: Negative cough or sputum production. Gastrointestinal: Negative vomiting or diarrhea. Genitourinary: Negative for urinary tract infection. LABORATORY DATA: White count 25.2, neutrophils 92, bands 2, 2, monocytes 3, hematocrit 28.2, platelets 454. BUN 60, creatinine 1.5. Urinalysis: White cells 2; culture is pending. Chest x-ray: Negative for acute infiltrate. CT of the chest is pending. PHYSICAL EXAMINATION: General: On exam, she is awake, appears cachetic, supine in bed, no acute distress. Vital Signs: Temperature 97.7, blood pressure 130/76, pulse 91 regular, respirations 18 per minute. Eyes: Sclerae are anicteric. Throat: Dry mucous membranes. Heart: Heart sounds S1, S2. Lungs: Poor inspiratory effort. Grossly clear. Abdomen: Soft and nontender. Extremities: Negative for edema. IMPRESSION: 1. Leukocytosis/lactic acidosis. Rule out sepsis. 2. Cachexia. 3. History of esophageal cancer. 4. Acute kidney injury; resolving. Await sepsis workup. Considerations for sepsis in this patient include aspiration pneumonia in the setting of previous esophageal cancer and sepsis secondary to UTI. Await culture results. Empiric antibiotic coverage with ceftriaxone. Aspiration precautions. Further recommendations pending cultures. Will follow. Thank you for the kind referral. ROSA ELENA LEON M.D. [id number]
--- NOTE | 2018-11-16 16:09 | CONSULT ---
Consult Consult Specialty:: Nephrology Reason for Consultation:: MAGDALENE - History of Present Illness Chief Complaint: abdominal pain History of Present Illness: Pt is an 83 year old female with pmhx of alzheimers dementia, esphageal cancer, htn, and copd who was sent in from the [place] for abdominal pain. She was found to be in acute renal failure and I was called to evaluate her. She is a poor historian and unable to give much history. Chart was reviewed. She has poor po intake secondary to esophageal cancer. She did not have any fevers or chills. Her renal function did improve with fluids. - History Source History Provided By: Medical Record Limitations to Obtaining History: Clinical Condition - Past Medical History Cardio/Vascular: Yes: HTN Pulmonary: Yes: COPD Endocrine: Yes: Hypothyroidism - Alcohol/Substance Use Hx Alcohol Use: No - Smoking History Smoking history: Former smoker Have you smoked in the past 12 months: No Aproximately how many cigarettes per day: 3 Home Medications - Allergies Allergies/Adverse Reactions: Allergies Allergy/AdvReac Type Severity Reaction Status Date / Time No Known Allergies Allergy Verified 06/09/18 15:55 - Home Medications Home Medications: Ambulatory Orders Albuterol 2.5/Ipratropium 0.5 [Duoneb -] 1 neb NEB Q8H PRN 06/09/18 Amlodipine Besylate 5 mg PO DAILY 06/09/18 Ascorbic Acid [Vitamin C -] 500 mg PO BID 06/09/18 Carbamide Peroxide [Debrox] 10 ml DAILY 06/09/18 Docusate Sodium [Colace] 300 mg PO HS 06/09/18 Ferrous Sulfate 325 mg PO BID 06/09/18 Folic Acid 1 mg PO DAILY 06/09/18 Levothyroxine [Synthroid -] 25 mcg PO DAILY 06/09/18 Magnesium Hydroxide [Milk of Magnesia] 400 mg PO DAILY 06/09/18 Mirtazapine [Remeron -] 30 mg PO DAILY 06/09/18 Polyethylene Glycol 3350 [Miralax 119 gm Btl -] 17 g PO BID 06/09/18 Potassium Chloride [K-Dur -] 20 meq PO BID 06/09/18 Sennosides [Senna] 8.6 mg PO DAILY 06/09/18 Sodium Chloride 1,000 mg PO Q6H 06/09/18 Aripiprazole [Abilify -] 2 mg PO DAILY 10/25/18 Epoetin Wally [Procrit -] 10,000 unit SQ WEEKLY 10/25/18 Omeprazole Magnesium [Prilosec Otc] 20 mg PO DAILY 10/25/18 Bacitracin - [Bacitracin Topical Ointment -] 1 applic TP DAILY 11/16/18 Guaifenesin [Mucinex] 600 mg PO QID 11/16/18 Metoclopramide HCl [Reglan] 5 mg PO BID 11/16/18 Family Disease History - Family Disease History Family History: Denies Review of Systems Unable to obtain ROS, reason: limited- poor historian - Review of Systems Constitutional: reports: Malaise Eyes: reports: No Symptoms, Floaters Neck: reports: No Symptoms Cardiovascular: reports: No Symptoms Gastrointestinal: reports: Abdominal Pain Musculoskeletal: reports: Muscle Weakness Endocrine: reports: No Symptoms Physical Exam Vital Signs: Vital Signs Temperature 97.8 F 11/16/18 14:11 Pulse Rate 74 11/16/18 14:11 Respiratory Rate 20 11/16/18 14:11 Blood Pressure 130/76 11/16/18 09:51 O2 Sat by Pulse Oximetry (%) 96 11/16/18 09:51 Constitutional: Yes: Calm Eyes: Yes: Conjunctiva Clear HENT: Yes: Atraumatic Neck: Yes: Supple Cardiovascular: Yes: S1, S2 Respiratory: Yes: CTA Bilaterally Gastrointestinal: Yes: Soft Renal/: Yes: Incontinence Musculoskeletal: Yes: Muscle Weakness Edema: No Neurological: Yes: Confusion Labs: CBC, BMP 11/16/18 11:40 11/16/18 05:35 Laboratory Tests 11/15/18 11/15/18 11/15/18 16:52 16:53 16:53 WBC 25.2 H Potassium BUN 67.4 H Creatinine 2.0 H Lactic Acid 5.1 H* Urine Protein Urine Blood 11/15/18 11/16/18 11/16/18 23:30 01:26 05:35 WBC Potassium 3.1 L BUN 60.4 H Creatinine 1.5 H Lactic Acid 1.3 Urine Protein 1+ H Urine Blood 2+ H Problem List - Problems (1) MAGDALENE (acute kidney injury) Code(s): N17.9 - ACUTE KIDNEY FAILURE, UNSPECIFIED (2) SIRS (systemic inflammatory response syndrome) Code(s): R65.10 - SIRS OF NON-INFECTIOUS ORIGIN W/O ACUTE ORGAN DYSFUNCTION (3) Anemia Code(s): D64.9 - ANEMIA, UNSPECIFIED Qualifiers: Anemia type: iron deficiency (4) Esophageal cancer Code(s): C15.9 - MALIGNANT NEOPLASM OF ESOPHAGUS, UNSPECIFIED (5) HTN (hypertension) Code(s): I10 - ESSENTIAL (PRIMARY) HYPERTENSION Assessment/Plan Current Medications Generic Name Dose Route Start Last Admin Trade Name Freq PRN Reason Stop Dose Admin Albuterol/Ipratropium 1 amp 11/16/18 11:58 Duoneb - NEB Q8H PRN SHORTNESS OF BREATH Amlodipine Besylate 5 mg 11/17/18 10:00 Norvasc - PO DAILY [facility] Aripiprazole 2 mg 11/16/18 12:00 11/16/18 14:11 Abilify PO 2 mg DAILY [facility] Administration Heparin Sodium (Porcine) 5,000 unit 11/16/18 06:00 11/16/18 13:16 Heparin - SQ 5,000 unit TID PRICILA Administration Ceftriaxone Sodium 2 gm/ 100 mls @ 200 mls/hr 11/16/18 13:15 11/16/18 13:15 Dextrose IVPB 11/17/18 13:14 200 mls/hr DAILY PR[facility] Administration Protocol Levothyroxine Sodium 25 mcg 11/17/18 07:00 Synthroid - PO DAILY@0700 [facility] Mirtazapine 30 mg 11/16/18 12:00 11/16/18 13:16 Remeron - PO 30 mg HS PR[facility]ILA Administration Impression 1. MAGDALENE 2. hypokalemia 3. abd pain 4. hypothryoidism 5. malnutrition 6. esophageal cancer 7. copd Plan - change fluids to d51/2ns with potassium - renal function is improving - avoid nsaids or nephrotoxins - follow cultures - abx per medical team
[2018-11-16] MEDS ORDERED: ONDANSETRON 4 MG/2 ML VIAL IVPUSH PRN (16:30)
[2018-11-16] MEDS ORDERED: ONDANSETRON 4 MG/2 ML VIAL ONE (16:30)
[2018-11-16] MEDS: D5-1/2NS+20 MEQ KCL - 20 MEQ/1,000 ML INFUS.BAG IV SCH (16:32)
[2018-11-16] MEDS: MIRTAZAPINE 15 MG TABLET (FP) PO SCH (21:50)
[2018-11-17] MEDS: HEPARIN NA (PORCINE) 5,000 UNITS/ML 1ML VIAL SQ SCH (06:33)
[2018-11-17] MEDS: LEVOTHYROXINE NA 25 MCG TABLET (FP) PO SCH (06:33)
[2018-11-17 08:01] LABS: BASO % 0.2 % (0-2.0); HEMATOCRIT 31.4 % (32.4-45.2); HEMOGLOBIN 10.1 GM/dL (10.7-15.3); LYMPH % 3.7 % (8-40); MCH 24.2 pg (25.7-33.7); MCHC 32.2 g/dl (32.0-36.0); MEAN CELL VOLUME 75.1 fl (80-96); MEAN PLT VOLUME 7.6 fl (7.5-11.1); MONO % 3.8 % (3.8-10.2); NEUT % 92.3 % (42.8-82.8); PLATELET COUNT 251 K/MM3 (134-434); RBC 4.18 M/mm3 (3.60-5.2); RDW 22.6 % (11.6-15.6)
[2018-11-17 08:31] LABS: ALBUMIN 2.3 g/dl (3.4-5.0); BILIRUBIN,TOTAL 0.8 mg/dL (0.2-1); BLOOD UREA NITROGEN 44.5 mg/dL (7-18); CALCIUM 8.6 mg/dL (8.5-10.1); CREATININE 0.9 mg/dL (0.55-1.3); MAGNESIUM 2.4 mg/dL (1.8-2.4); TOT PROT 6.2 g/dl (6.4-8.2)
[2018-11-17] MEDS ORDERED: DEXTROSE 5%-WATER 100 ML IVPB ONE (08:47)
[2018-11-17] MEDS ORDERED: PT OWN MED DRAWER 7, Y5N ONE (08:47)
[2018-11-17 10:10] LABS: ANISOCYTOSIS 1+; MACROCYTOSIS 0; OVALOCYTE 1+; PLATELET ESTIMATE NORMAL; TARGET CELLS 1+
[2018-11-17] MEDS: CEFTRIAXONE 2 GM in DEXTROSE 5%-WATER 100 ML IVPB SCH (11:33)
[2018-11-17] MEDS: ARIPiprazole 2 MG TABLET PO SCH (11:35)
[2018-11-17] MEDS: ONDANSETRON 4 MG/2 ML VIAL IVPUSH SCH ×4 (11:35→22:48)
[2018-11-17] MEDS: amLODIPine BESYLATE 5 MG TABLET (FP) PO SCH (11:35)
--- NOTE | 2018-11-17 12:17 | CON.GI ---
Consult Consult Specialty:: Gastroenterology Reason for Consultation:: GI bleed - History of Present Illness Chief Complaint: Abdominal pain History of Present Illness: 83yo female h/o dementia, esophageal cancer (diagnosed 4 years ago, declined treatment) [facility] with abdominal and leg pain asked to evaluate for possible GI bleed. Pt refusing to answer questions on my evaluation asking to be left alone. Per nursing staff pt with poor po intake, had been vomiting small amounts of dark contents. Also refusing medications asking to sleep and be left alone. Moving bowels, no melena reported. Received 2u prbc yestserday with appropriate response. On review of records pt refusing treatment and procedures previously. GI consulted in 05/2018 though pt had refused testing and wanted to go back to [place]. Spoke with pts keven Kitty Neely (HCP) by phone states pt has been clear about no further testing or interventions wants to proceed with comfort measures at this time, requesting palliative care consultation. - History Source History Provided By: Patient, Family Member, Medical Record Limitations to Obtaining History: Other (pt refusing) - Past Medical History Cardio/Vascular: Yes: HTN Pulmonary: Yes: COPD Endocrine: Yes: Hypothyroidism - Alcohol/Substance Use Hx Alcohol Use: No - Smoking History Smoking history: Former smoker Have you smoked in the past 12 months: No Aproximately how many cigarettes per day: 3 Home Medications - Allergies Allergies/Adverse Reactions: Allergies Allergy/AdvReac Type Severity Reaction Status Date / Time No Known Allergies Allergy Verified 06/09/18 15:55 - Home Medications Home Medications: Ambulatory Orders Albuterol 2.5/Ipratropium 0.5 [Duoneb -] 1 neb NEB Q8H PRN 06/09/18 Amlodipine Besylate 5 mg PO DAILY 06/09/18 Ascorbic Acid [Vitamin C -] 500 mg PO BID 06/09/18 Carbamide Peroxide [Debrox] 10 ml DAILY 06/09/18 Docusate Sodium [Colace] 300 mg PO HS 06/09/18 Ferrous Sulfate 325 mg PO BID 06/09/18 Folic Acid 1 mg PO DAILY 06/09/18 Levothyroxine [Synthroid -] 25 mcg PO DAILY 06/09/18 Magnesium Hydroxide [Milk of Magnesia] 400 mg PO DAILY 06/09/18 Mirtazapine [Remeron -] 30 mg PO DAILY 06/09/18 Polyethylene Glycol 3350 [Miralax 119 gm Btl -] 17 g PO BID 06/09/18 Potassium Chloride [K-Dur -] 20 meq PO BID 06/09/18 Sennosides [Senna] 8.6 mg PO DAILY 06/09/18 Sodium Chloride 1,000 mg PO Q6H 06/09/18 Aripiprazole [Abilify -] 2 mg PO DAILY 10/25/18 Epoetin Wally [Procrit -] 10,000 unit SQ WEEKLY 10/25/18 Omeprazole Magnesium [Prilosec Otc] 20 mg PO DAILY 10/25/18 Bacitracin - [Bacitracin Topical Ointment -] 1 applic TP DAILY 11/16/18 Guaifenesin [Mucinex] 600 mg PO QID 11/16/18 Metoclopramide HCl [Reglan] 5 mg PO BID 11/16/18 Review of Systems Unable to obtain ROS, reason: Pt refusing to answer Physical Exam-GI Vital Signs: Vital Signs Temperature 97.5 F L 11/16/18 21:57 Pulse Rate 75 11/16/18 21:57 Respiratory Rate 18 11/16/18 21:57 Blood Pressure 102/48 L 11/16/18 21:57 O2 Sat by Pulse Oximetry (%) 97 11/16/18 21:00 Constitutional: Yes: No Distress, Calm, Other (Pt refusing examination) Labs: CBC, BMP 11/17/18 07:32 11/17/18 07:30 Imaging - Results Cat Scan: Report Reviewed, Image Reviewed Problem List - Problems (1) Anemia Assessment/Plan: 83yo female h/o dementia, esophageal cancer (diagnosed 4 years ago, declined treatment), DNR/DNI presenting from [facility] with abdominal and leg pain asked to evaluate for possible GI bleed. CT imaging (noncontrast) revealing dilated esophagus with air/fluid. Concern for obstructive esophageal mass and potential bleeding. Pt refusing to answer questions and wanting to be left alone. Pts niece (HCP) declining any invasive measures including endoscopy, aware of worsening symptoms if testing/treatment not pursued and further disease progression however wanting to focus on comfort measures and requesting palliative care consultation. -Detailed discussion taken place with pts niece (HCP) regarding risks/benefits of further testing/interventions and she wants to proceed with comfort care -Palliative care consultation Discussed with medicine attending Code(s): D64.9 - ANEMIA, UNSPECIFIED Qualifiers: Anemia type: iron deficiency
--- NOTE | 2018-11-17 12:28 | PN ---
Progress Note (short form) - Note Progress Note: now vomiting dark material does not want to be examined not in distress Vital Signs - 24 hr 11/16/18 11/16/18 11/16/18 14:11 16:27 16:57 Temperature 97.8 F 97.0 F L 98.0 F Pulse Rate 74 73 83 Respiratory 20 20 20 Rate Blood Pressure 96/47 L 106/63 O2 Sat by Pulse Oximetry (%) 11/16/18 11/16/18 11/17/18 21:00 21:57 10:00 Temperature 97.5 F L 98.1 F Pulse Rate 75 66 Respiratory 18 18 18 Rate Blood Pressure 102/48 L 129/64 O2 Sat by Pulse 97 Oximetry (%) Current Medications Generic Name Dose Route Start Last Admin Trade Name Freq PRN Reason Stop Dose Admin Albuterol/Ipratropium 1 amp 11/16/18 11:58 Duoneb - NEB Q8H PRN SHORTNESS OF BREATH Amlodipine Besylate 5 mg 11/17/18 10:00 11/17/18 11:35 Norvasc - PO Not Given DAILY PRICILA Aripiprazole 2 mg 11/16/18 12:00 11/17/18 11:35 Abilify PO Not Given DAILY PRICILA Ceftriaxone Sodium 2 gm/ 100 mls @ 200 mls/hr 11/16/18 13:15 11/17/18 11:33 Dextrose IVPB 11/17/18 13:14 200 mls/hr DAILY PRICILA Administration Protocol Potassium Chloride/Dextrose/Sod Cl 20 meq in 1,000 mls @ 75 mls/hr 11/16/18 16 :15 11/16/18 16:32 D5-1/2ns+20 Meq Kcl - IV Not Given ASDIR PRICILA Levothyroxine Sodium 25 mcg 11/17/18 07:00 11/17/18 06:33 Synthroid - PO 25 mcg DAILY@0700 PR[facility]ILA Administration Mirtazapine 30 mg 11/16/18 21:38 11/16/18 21:50 Remeron - PO 30 mg HS PRICILA Administration Ondansetron HCl 4 mg 11/17/18 11:30 11/17/18 11:35 Zofran Injection IVPUSH 4 mg Q4H-IV PR[facility]ILA Administration Pantoprazole Sodium 40 mg 11/17/18 12:30 Protonix Iv IVPUSH DAILY [facility] Laboratory Results - last 24 hr 11/16/18 11/16/18 11/17/18 11:40 13:30 07:30 WBC 14.7 H RBC 3.10 L Hgb 6.8 L* Hct 22.2 L D MCV 71.6 L MCH 21.9 L MCHC 30.7 L RDW 24.4 H Plt Count 287 D MPV 7.8 Absolute Neuts (auto) 13.7 H Neutrophils % 93.3 H Neutrophils % (Manual) 97.0 H Band Neutrophils % 1.0 Lymphocytes % 3.7 L D Lymphocytes % (Manual) 1.0 L D Monocytes % 2.9 L Monocytes % (Manual) 1 L Eosinophils % 0.0 Eosinophils % (Manual) 0.0 Basophils % 0.1 Basophils % (Manual) 0.0 Myelocytes % (Man) 0 Promyelocytes % (Man) 0 Blast Cells % (Manual) 0 Nucleated RBC % 0 Metamyelocytes 0 D Hypochromia 1+ Platelet Estimate Normal Polychromasia 1+ Poikilocytosis 1+ Anisocytosis 1+ Microcytosis 1+ Macrocytosis 0 Target Cells Ovalocytes 1+ Schistocytes 1+ Sodium 146 H Potassium 3.0 L Chloride 113 H Carbon Dioxide 25 Anion Gap 8 BUN 44.5 H Creatinine 0.9 Est GFR (CKD-EPI)AfAm 69.01 Est GFR (CKD-EPI)NonAf 59.55 Random Glucose 79 Calcium 8.6 Magnesium 2.4 Total Bilirubin 0.8 AST 95 H ALT 49 Alkaline Phosphatase 95 Total Protein 6.2 L Albumin 2.3 L Blood Type B POSITIVE Antibody Screen Negative Crossmatch See Detail 11/17/18 07:32 WBC 12.0 H RBC 4.18 Hgb 10.1 L Hct 31.4 L D MCV 75.1 L MCH 24.2 L D MCHC 32.2 RDW 22.6 H Plt Count 251 MPV 7.6 Absolute Neuts (auto) 11.1 H Neutrophils % 92.3 H Neutrophils % (Manual) 89.0 H Band Neutrophils % 0.0 Lymphocytes % 3.7 L Lymphocytes % (Manual) 6.0 L D Monocytes % 3.8 Monocytes % (Manual) 5 D Eosinophils % 0.0 Eosinophils % (Manual) 0.0 Basophils % 0.2 Basophils % (Manual) 0.0 Myelocytes % (Man) 0 Promyelocytes % (Man) 0 Blast Cells % (Manual) 0 Nucleated RBC % 0 Metamyelocytes 0 Hypochromia 0 Platelet Estimate Normal Polychromasia 1+ Poikilocytosis 1+ Anisocytosis 1+ Microcytosis 1+ Macrocytosis 0 Target Cells 1+ Ovalocytes 1+ Schistocytes Sodium Potassium Chloride Carbon Dioxide Anion Gap BUN Creatinine Est GFR (CKD-EPI)AfAm Est GFR (CKD-EPI)NonAf Random Glucose Calcium Magnesium Total Bilirubin AST ALT Alkaline Phosphatase Total Protein Albumin Blood Type Antibody Screen Crossmatch S1 S2 RRR Lungs decreased Abd-soft, NT No edema PLAN replace potassium iv fluids add potassium to the fluids encourage PO pt is DNR/DNI and do not hospitalize will call palliative consult keep pt comfortable IV antibiotics received PRBC left a message for niece-- will wait for call back spoke with GI-- no acute interventions as per HCP -->niece Microbiology 11/16/18 01:26 Urine Culture - Final Urine - Urine - Catheterized Streptococcus Viridans 11/15/18 20:21 Blood Culture - Preliminary Blood - Peripheral Venous NO GROWTH OBTAINED AFTER 24 HOURS, INCUBATION TO CONTINUE FOR 4 DAYS. 11/15/18 20:21 Blood Culture - Preliminary Blood - Peripheral Venous NO GROWTH OBTAINED AFTER 24 HOURS, INCUBATION TO CONTINUE FOR 4 DAYS. Problem List - Problems (1) SIRS (systemic inflammatory response syndrome) Code(s): R65.10 - SIRS OF NON-INFECTIOUS ORIGIN W/O ACUTE ORGAN DYSFUNCTION (2) Anemia Code(s): D64.9 - ANEMIA, UNSPECIFIED (3) Esophageal cancer Code(s): C15.9 - MALIGNANT NEOPLASM OF ESOPHAGUS, UNSPECIFIED (4) HTN (hypertension) Code(s): I10 - ESSENTIAL (PRIMARY) HYPERTENSION (5) Hypothyroidism Code(s): E03.9 - HYPOTHYROIDISM, UNSPECIFIED
[2018-11-17] MEDS ORDERED: LORazepam 2 MG/ML SDV VIAL IVPUSH PRN (12:33)
--- NOTE | 2018-11-17 12:50 | PN ---
Progress Note, Physician History of Present Illness: Pt is more awake and interactive today. She says that she does not want any treatment or anything to be done. She refused fluids. - Current Medication List Current Medications: Active Medications Albuterol/Ipratropium (Duoneb -) 1 amp NEB Q8H PRN PRN Reason: SHORTNESS OF BREATH Amlodipine Besylate (Norvasc -) 5 mg PO DAILY [facility] Last Admin: 11/17/18 11:35 Dose: Not Given Aripiprazole (Abilify) 2 mg PO DAILY [facility] Last Admin: 11/17/18 11:35 Dose: Not Given Ceftriaxone Sodium 2 gm/ (Dextrose) 100 mls @ 200 mls/hr IVPB DAILY [facility]; Protocol Stop: 11/17/18 13:14 Last Admin: 11/17/18 11:33 Dose: 200 mls/hr Potassium Chloride/Dextrose/Sod Cl (D5-1/2ns+20 Meq Kcl -) 20 meq in 1,000 mls @ 75 mls/hr IV ASDIR [facility] Last Admin: 11/16/18 16:32 Dose: Not Given Levothyroxine Sodium (Synthroid -) 25 mcg PO DAILY@0700 [facility] Last Admin: 11/17/18 06:33 Dose: 25 mcg Lorazepam (Ativan Injection -) 1 mg IVPUSH Q6H PRN PRN Reason: ANXIETY Mirtazapine (Remeron -) 30 mg PO HS [facility] Last Admin: 11/16/18 21:50 Dose: 30 mg Ondansetron HCl (Zofran Injection) 4 mg IVPUSH Q4H-IV [facility] Last Admin: 11/17/18 11:35 Dose: 4 mg Pantoprazole Sodium (Protonix Iv) 40 mg IVPUSH DAILY [facility] Potassium Chloride (Potassium Chloride Oral Liquid) 40 meq PO ONCE ONE Stop: 11/17/18 13:01 - Objective Vital Signs: Vital Signs Temperature 98.1 F 11/17/18 10:00 Pulse Rate 66 11/17/18 10:00 Respiratory Rate 18 11/17/18 10:00 Blood Pressure 129/64 11/17/18 10:00 O2 Sat by Pulse Oximetry (%) 97 11/16/18 21:00 Constitutional: Yes: Anxious Eyes: Yes: Conjunctiva Clear HENT: Yes: Atraumatic Neck: Yes: Supple Cardiovascular: Yes: S1, S2 Gastrointestinal: Yes: Normal Bowel Sounds, Soft Genitourinary: Yes: Incontinence Musculoskeletal: Yes: Muscle Weakness Edema: No Psychiatric: Yes: Agitated Labs: CBC, BMP 11/17/18 07:32 11/17/18 07:30 Problem List - Problems (1) MAGDALENE (acute kidney injury) Code(s): N17.9 - ACUTE KIDNEY FAILURE, UNSPECIFIED (2) SIRS (systemic inflammatory response syndrome) Code(s): R65.10 - SIRS OF NON-INFECTIOUS ORIGIN W/O ACUTE ORGAN DYSFUNCTION (3) Anemia Code(s): D64.9 - ANEMIA, UNSPECIFIED (4) Esophageal cancer Code(s): C15.9 - MALIGNANT NEOPLASM OF ESOPHAGUS, UNSPECIFIED (5) HTN (hypertension) Code(s): I10 - ESSENTIAL (PRIMARY) HYPERTENSION Assessment/Plan Current Medications Generic Name Dose Route Start Last Admin Trade Name Freq PRN Reason Stop Dose Admin Albuterol/Ipratropium 1 amp 11/16/18 11:58 Duoneb - NEB Q8H PRN SHORTNESS OF BREATH Amlodipine Besylate 5 mg 11/17/18 10:00 11/17/18 11:35 Norvasc - PO Not Given DAILY [facility] Aripiprazole 2 mg 11/16/18 12:00 11/17/18 11:35 Abilify PO Not Given DAILY [facility] Ceftriaxone Sodium 2 gm/ 100 mls @ 200 mls/hr 11/16/18 13:15 11/17/18 11:33 Dextrose IVPB 11/17/18 13:14 200 mls/hr DAILY [facility]IL[facility] Administration Protocol Potassium Chloride/Dextrose/Sod Cl 20 meq in 1,000 mls @ 75 mls/hr 11/16/18 16 :15 11/16/18 16:32 D5-1/2ns+20 Meq Kcl - IV Not Given ASDIR PR[facility]ILA Levothyroxine Sodium 25 mcg 11/17/18 07:00 11/17/18 06:33 Synthroid - PO 25 mcg DAILY@0700 PR[facility] Administration Lorazepam 1 mg 11/17/18 12:33 Ativan Injection - IVPUSH Q6H PRN ANXIETY Mirtazapine 30 mg 11/16/18 21:38 11/16/18 21:50 Remeron - PO 30 mg HS PR[facility]ILA Administration Ondansetron HCl 4 mg 11/17/18 11:30 11/17/18 11:35 Zofran Injection IVPUSH 4 mg Q4H-IV [facility] Administration Pantoprazole Sodium 40 mg 11/17/18 12:30 Protonix Iv IVPUSH DAILY [facility] Potassium Chloride 40 meq 11/17/18 13:00 Potassium Chloride Oral Liquid PO 11/17/18 13:01 ONCE ONE Impression 1. MAGDALENE 2. hypokalemia 3. abd pain 4. hypothryoidism 5. malnutrition 6. esophageal cancer 7. copd Plan - replace potassium - pt refusing fluids - will need to clarify GOC - renal function is actually improved - avoid nsaids or nephrotoxins
[2018-11-17] MEDS ORDERED: POTASSIUM CHLORIDE ORAL LIQUID 20 MEQ/15 ML PO ONE (13:00)
[2018-11-17] MEDS: PANTOPRAZOLE SODIUM 40 MG VIAL IVPUSH SCH (14:24)
[2018-11-17] MEDS: D5-1/2NS+20 MEQ KCL - 20 MEQ/1,000 ML INFUS.BAG IV SCH ×2 (18:26→19:34)
[2018-11-17] MEDS: MIRTAZAPINE 15 MG TABLET (FP) PO SCH (22:41)
[2018-11-18] MEDS: ONDANSETRON 4 MG/2 ML VIAL IVPUSH SCH ×6 (02:19→21:02)
[2018-11-18] MEDS: LEVOTHYROXINE NA 25 MCG TABLET (FP) PO SCH (06:18)
[2018-11-18] MEDS: PANTOPRAZOLE SODIUM 40 MG VIAL IVPUSH SCH (09:53)
[2018-11-18] MEDS: ARIPiprazole 2 MG TABLET PO SCH (09:53)
[2018-11-18] MEDS: amLODIPine BESYLATE 5 MG TABLET (FP) PO SCH (09:53)
[2018-11-18] MEDS: D5-1/2NS+20 MEQ KCL - 20 MEQ/1,000 ML INFUS.BAG IV SCH ×2 (09:56→17:07)
--- NOTE | 2018-11-18 13:17 | PN ---
Progress Note (short form) - Note Progress Note: no vomiting HCP -- Sr Pat at bedside Vital Signs - 24 hr 11/17/18 11/17/18 11/17/18 18:38 21:00 22:00 Temperature 98.0 F 98 F Pulse Rate 76 81 Respiratory 18 16 16 Rate Blood Pressure 108/62 122/68 O2 Sat by Pulse 95 Oximetry (%) 11/18/18 11/18/18 11/18/18 06:10 09:00 10:00 Temperature 97.3 F L 97.8 F Pulse Rate 67 70 Respiratory 16 18 18 Rate Blood Pressure 131/71 113/66 O2 Sat by Pulse Oximetry (%) Current Medications Generic Name Dose Route Start Last Admin Trade Name Freq PRN Reason Stop Dose Admin Albuterol/Ipratropium 1 amp 11/16/18 11:58 Duoneb - NEB Q8H PRN SHORTNESS OF BREATH Amlodipine Besylate 5 mg 11/17/18 10:00 11/18/18 09:53 Norvasc - PO Not Given DAILY [facility] Aripiprazole 2 mg 11/16/18 12:00 11/18/18 09:53 Abilify PO Not Given DAILY [facility] Potassium Chloride/Dextrose/Sod Cl 20 meq in 1,000 mls @ 75 mls/hr 11/16/18 16 :15 11/18/18 09:56 D5-1/2ns+20 Meq Kcl - IV 75 mls/hr ASDIR PR[facility]ILA Administration Levothyroxine Sodium 25 mcg 11/17/18 07:00 11/18/18 06:18 Synthroid - PO 25 mcg DAILY@0700 [facility] Administration Lorazepam 1 mg 11/17/18 12:33 Ativan Injection - IVPUSH Q6H PRN ANXIETY Mirtazapine 30 mg 11/16/18 21:38 11/17/18 22:41 Remeron - PO 30 mg HS PR[facility]ILA Administration Ondansetron HCl 4 mg 11/17/18 11:30 11/18/18 09:56 Zofran Injection IVPUSH 4 mg Q4H-IV [facility] Administration Pantoprazole Sodium 40 mg 11/17/18 12:30 11/18/18 09:53 Protonix Iv IVPUSH 40 mg DAILY [facility] Administration S1 S2 RRR Lungs decreased Abd-soft, NT No edema PLAN iv fluids encourage PO pt is DNR/DNI and do not hospitalize keep pt comfortable IV antibiotics s/p PRBC l spoke with niece-- HCP-- wishing for hospice care-- awaiting [facility] no blood draws continue meds for now Microbiology 11/16/18 01:26 Urine Culture - Final Urine - Urine - Catheterized Streptococcus Viridans 11/15/18 20:21 Blood Culture - Preliminary Blood - Peripheral Venous NO GROWTH OBTAINED AFTER 24 HOURS, INCUBATION TO CONTINUE FOR 4 DAYS. 11/15/18 20:21 Blood Culture - Preliminary Blood - Peripheral Venous NO GROWTH OBTAINED AFTER 24 HOURS, INCUBATION TO CONTINUE FOR 4 DAYS. Problem List - Problems (1) SIRS (systemic inflammatory response syndrome) Code(s): R65.10 - SIRS OF NON-INFECTIOUS ORIGIN W/O ACUTE ORGAN DYSFUNCTION (2) Anemia Code(s): D64.9 - ANEMIA, UNSPECIFIED Qualifiers: Anemia type: iron deficiency (3) Esophageal cancer Code(s): C15.9 - MALIGNANT NEOPLASM OF ESOPHAGUS, UNSPECIFIED (4) HTN (hypertension) Code(s): I10 - ESSENTIAL (PRIMARY) HYPERTENSION (5) Hypothyroidism Code(s): E03.9 - HYPOTHYROIDISM, UNSPECIFIED
--- NOTE | 2018-11-18 16:39 | PN ---
Progress Note, Physician History of Present Illness: Pt seen and examined. SHe denies vomiting. - Current Medication List Current Medications: Active Medications Albuterol/Ipratropium (Duoneb -) 1 amp NEB Q8H PRN PRN Reason: SHORTNESS OF BREATH Amlodipine Besylate (Norvasc -) 5 mg PO DAILY [facility] Last Admin: 11/18/18 09:53 Dose: Not Given Aripiprazole (Abilify) 2 mg PO DAILY [facility] Last Admin: 11/18/18 09:53 Dose: Not Given Potassium Chloride/Dextrose/Sod Cl (D5-1/2ns+20 Meq Kcl -) 20 meq in 1,000 mls @ 75 mls/hr IV ASDIR [facility] Last Admin: 11/18/18 09:56 Dose: 75 mls/hr Levothyroxine Sodium (Synthroid -) 25 mcg PO DAILY@0700 [facility] Last Admin: 11/18/18 06:18 Dose: 25 mcg Lorazepam (Ativan Injection -) 1 mg IVPUSH Q6H PRN PRN Reason: ANXIETY Mirtazapine (Remeron -) 30 mg PO HS [facility] Last Admin: 11/17/18 22:41 Dose: 30 mg Ondansetron HCl (Zofran Injection) 4 mg IVPUSH Q4H-IV [facility] Last Admin: 11/18/18 13:46 Dose: Not Given Pantoprazole Sodium (Protonix Iv) 40 mg IVPUSH DAILY [facility] Last Admin: 11/18/18 09:53 Dose: 40 mg - Objective Vital Signs: Vital Signs Temperature 97.8 F 11/18/18 10:00 Pulse Rate 70 11/18/18 10:00 Respiratory Rate 18 11/18/18 10:00 Blood Pressure 113/66 11/18/18 10:00 O2 Sat by Pulse Oximetry (%) 95 11/17/18 21:00 Constitutional: Yes: Calm Eyes: Yes: Conjunctiva Clear HENT: Yes: Atraumatic Neck: Yes: Supple Cardiovascular: Yes: S1, S2 Respiratory: Yes: CTA Bilaterally Gastrointestinal: Yes: Soft Genitourinary: Yes: Incontinence Musculoskeletal: Yes: Muscle Weakness Edema: No Neurological: Yes: Oriented Psychiatric: Yes: Oriented Labs: CBC, BMP 11/17/18 07:32 11/17/18 07:30 Problem List - Problems (1) MAGDALENE (acute kidney injury) Code(s): N17.9 - ACUTE KIDNEY FAILURE, UNSPECIFIED (2) SIRS (systemic inflammatory response syndrome) Code(s): R65.10 - SIRS OF NON-INFECTIOUS ORIGIN W/O ACUTE ORGAN DYSFUNCTION (3) Anemia Code(s): D64.9 - ANEMIA, UNSPECIFIED Qualifiers: Anemia type: iron deficiency (4) Esophageal cancer Code(s): C15.9 - MALIGNANT NEOPLASM OF ESOPHAGUS, UNSPECIFIED (5) HTN (hypertension) Code(s): I10 - ESSENTIAL (PRIMARY) HYPERTENSION Assessment/Plan Current Medications Generic Name Dose Route Start Last Admin Trade Name Freq PRN Reason Stop Dose Admin Albuterol/Ipratropium 1 amp 11/16/18 11:58 Duoneb - NEB Q8H PRN SHORTNESS OF BREATH Amlodipine Besylate 5 mg 11/17/18 10:00 11/18/18 09:53 Norvasc - PO Not Given DAILY [facility] Aripiprazole 2 mg 11/16/18 12:00 11/18/18 09:53 Abilify PO Not Given DAILY [facility] Potassium Chloride/Dextrose/Sod Cl 20 meq in 1,000 mls @ 75 mls/hr 11/16/18 16 :15 11/18/18 09:56 D5-1/2ns+20 Meq Kcl - IV 75 mls/hr ASDIR [facility] Administration Levothyroxine Sodium 25 mcg 11/17/18 07:00 11/18/18 06:18 Synthroid - PO 25 mcg DAILY@0700 [facility] Administration Lorazepam 1 mg 11/17/18 12:33 Ativan Injection - IVPUSH Q6H PRN ANXIETY Mirtazapine 30 mg 11/16/18 21:38 11/17/18 22:41 Remeron - PO 30 mg HS [facility] Administration Ondansetron HCl 4 mg 11/17/18 11:30 11/18/18 13:46 Zofran Injection IVPUSH Not Given Q4H-IV [facility] Pantoprazole Sodium 40 mg 11/17/18 12:30 11/18/18 09:53 Protonix Iv IVPUSH 40 mg DAILY [facility] Administration Impression 1. MAGDALENE 2. hypokalemia 3. abd pain 4. hypothryoidism 5. malnutrition 6. esophageal cancer 7. copd Plan - no new labs - possible hospice care at [place] - avoid nsaids or nephrotoxins - will follow PRN
[2018-11-18] MEDS: MIRTAZAPINE 15 MG TABLET (FP) PO SCH (21:02)
--- NOTE | 2018-11-18 23:22 | PN ---
Progress Note, Physician History of Present Illness: AWAKE.ALERT IN BED OFFERS NO COMPLAINTS BREATHING NON LABORED AFEBRILE - Current Medication List Current Medications: Active Medications Albuterol/Ipratropium (Duoneb -) 1 amp NEB Q8H PRN PRN Reason: SHORTNESS OF BREATH Amlodipine Besylate (Norvasc -) 5 mg PO DAILY [facility] Last Admin: 11/18/18 09:53 Dose: Not Given Aripiprazole (Abilify) 2 mg PO DAILY [facility] Last Admin: 11/18/18 09:53 Dose: Not Given Potassium Chloride/Dextrose/Sod Cl (D5-1/2ns+20 Meq Kcl -) 20 meq in 1,000 mls @ 75 mls/hr IV ASDIR [facility] Last Admin: 11/18/18 17:07 Dose: Not Given Levothyroxine Sodium (Synthroid -) 25 mcg PO DAILY@0700 [facility] Last Admin: 11/18/18 06:18 Dose: 25 mcg Lorazepam (Ativan Injection -) 1 mg IVPUSH Q6H PRN PRN Reason: ANXIETY Mirtazapine (Remeron -) 30 mg PO HS [facility] Last Admin: 11/18/18 21:02 Dose: Not Given Ondansetron HCl (Zofran Injection) 4 mg IVPUSH Q4H-IV [facility] Last Admin: 11/18/18 21:02 Dose: Not Given Pantoprazole Sodium (Protonix Iv) 40 mg IVPUSH DAILY [facility] Last Admin: 11/18/18 09:53 Dose: 40 mg - Objective Vital Signs: Vital Signs Temperature 98.1 F 11/18/18 17:09 Pulse Rate 89 11/18/18 17:09 Respiratory Rate 18 11/18/18 17:09 Blood Pressure 108/61 11/18/18 17:09 O2 Sat by Pulse Oximetry (%) 95 11/17/18 21:00 Constitutional: Yes: No Distress Cardiovascular: Yes: Regular Rate and Rhythm, S1, S2 Respiratory: Yes: Diminished Gastrointestinal: Yes: Normal Bowel Sounds, Soft Edema: No Labs: CBC, BMP 11/17/18 07:32 11/17/18 07:30 Assessment/Plan LEUKOCYTOSIS ?ASPIRATON LACTIC ACIDOSIS RESOLVED AZOTEMIA IMPROVED PALLIATIVE CARE OFF ANTIBIOTICS
[2018-11-19] MEDS: ONDANSETRON 4 MG/2 ML VIAL IVPUSH SCH ×6 (01:03→21:04)
[2018-11-19] MEDS: LEVOTHYROXINE NA 25 MCG TABLET (FP) PO SCH (06:34)
[2018-11-19] MEDS ORDERED: PT OWN MED DRAWER 7, Y5N ONE (08:27)
[2018-11-19] MEDS: PANTOPRAZOLE SODIUM 40 MG VIAL IVPUSH SCH (09:32)
[2018-11-19] MEDS: amLODIPine BESYLATE 5 MG TABLET (FP) PO SCH (09:32)
[2018-11-19] MEDS: ARIPiprazole 2 MG TABLET PO SCH (09:32)
--- NOTE | 2018-11-19 10:02 | PN ---
Progress Note (short form) - Note Progress Note: pt seen/ examined chart reviewed comfortable denies pain Vital Signs Temp 98.1 F 11/19/18 06:00 Pulse 68 11/19/18 06:00 Resp 18 11/19/18 06:00 BP 129/65 11/19/18 06:00 Pulse Ox 96 11/18/18 21:00 Intake & Output 11/18/18 11/18/18 11/19/18 11:59 23:59 11:59 Intake Total 825 950 100 Balance 825 950 100 Weight 72 lb Intake: IV 825 750 D5-1/2NS+20 MEQ KCL - 20 825 750 meq In 1,000 ml @ 75 mls/ hr IV ASDIR [facility] Rx#: [id number] Oral 200 100 Other: Voiding Method Diaper Diaper Incontinent # Unmeasured Voids Void 1 Height 5 ft 5 in Body Mass Index (BMI) 12.0 Active Medications Albuterol/Ipratropium (Duoneb -) 1 amp NEB Q8H PRN PRN Reason: SHORTNESS OF BREATH Amlodipine Besylate (Norvasc -) 5 mg PO DAILY [facility] Last Admin: 11/19/18 09:32 Dose: 5 mg Aripiprazole (Abilify) 2 mg PO DAILY [facility] Last Admin: 11/19/18 09:32 Dose: 2 mg Potassium Chloride/Dextrose/Sod Cl (D5-1/2ns+20 Meq Kcl -) 20 meq in 1,000 mls @ 75 mls/hr IV ASDIR [facility] Last Admin: 11/18/18 17:07 Dose: Not Given Levothyroxine Sodium (Synthroid -) 25 mcg PO DAILY@0700 [facility] Last Admin: 11/19/18 06:34 Dose: 25 mcg Lorazepam (Ativan Injection -) 1 mg IVPUSH Q6H PRN PRN Reason: ANXIETY Mirtazapine (Remeron -) 30 mg PO HS [facility] Last Admin: 11/18/18 21:02 Dose: Not Given Ondansetron HCl (Zofran Injection) 4 mg IVPUSH Q4H-IV [facility] Last Admin: 11/19/18 09:32 Dose: 4 mg Pantoprazole Sodium (Protonix Iv) 40 mg IVPUSH DAILY [facility] Last Admin: 11/19/18 09:32 Dose: 40 mg CBC, BMP 11/17/18 07:32 11/17/18 07:30 Microbiology 11/15/18 20:21 Blood Culture - Preliminary Blood - Peripheral Venous NO GROWTH OBTAINED AFTER 72 HOURS, INCUBATION TO CONTINUE FOR 2 DAYS. 11/15/18 20:21 Blood Culture - Preliminary Blood - Peripheral Venous NO GROWTH OBTAINED AFTER 72 HOURS, INCUBATION TO CONTINUE FOR 2 DAYS. Physical exam awake and comfortable S1 S2 RRR Lungs decreased Abd-soft, No edema PLAN iv fluids pt is DNR/DNI and do not hospitalize keep pt comfortable IV antibiotics s/p PRBC Dr. Mason--spoke with niece-- HCP-- [facility] for hospice care-- [facility] no blood draws discussed with RN also Problem List - Problems (1) Anemia requiring transfusions Code(s): D64.9 - ANEMIA, UNSPECIFIED (2) Esophageal cancer Code(s): C15.9 - MALIGNANT NEOPLASM OF ESOPHAGUS, UNSPECIFIED (3) Hypothyroidism Code(s): E03.9 - HYPOTHYROIDISM, UNSPECIFIED
--- NOTE | 2018-11-19 12:46 | PN ---
Progress Note, Physician History of Present Illness: Pt seen and examined. She is lethargic today. - Current Medication List Current Medications: Active Medications Albuterol/Ipratropium (Duoneb -) 1 amp NEB Q8H PRN PRN Reason: SHORTNESS OF BREATH Amlodipine Besylate (Norvasc -) 5 mg PO DAILY [facility] Last Admin: 11/19/18 09:32 Dose: 5 mg Aripiprazole (Abilify) 2 mg PO DAILY [facility] Last Admin: 11/19/18 09:32 Dose: 2 mg Potassium Chloride/Dextrose/Sod Cl (D5-1/2ns+20 Meq Kcl -) 20 meq in 1,000 mls @ 75 mls/hr IV ASDIR [facility] Last Admin: 11/18/18 17:07 Dose: Not Given Levothyroxine Sodium (Synthroid -) 25 mcg PO DAILY@0700 [facility] Last Admin: 11/19/18 06:34 Dose: 25 mcg Lorazepam (Ativan Injection -) 1 mg IVPUSH Q6H PRN PRN Reason: ANXIETY Mirtazapine (Remeron -) 30 mg PO HS [facility] Last Admin: 11/18/18 21:02 Dose: Not Given Ondansetron HCl (Zofran Injection) 4 mg IVPUSH Q4H-IV [facility] Last Admin: 11/19/18 09:32 Dose: 4 mg Pantoprazole Sodium (Protonix Iv) 40 mg IVPUSH DAILY [facility] Last Admin: 11/19/18 09:32 Dose: 40 mg - Objective Vital Signs: Vital Signs Temperature 97.5 F L 11/19/18 10:00 Pulse Rate 85 11/19/18 10:00 Respiratory Rate 18 11/19/18 10:00 Blood Pressure 133/54 L 11/19/18 10:00 O2 Sat by Pulse Oximetry (%) 98 11/19/18 09:00 Constitutional: Yes: Calm Eyes: Yes: Conjunctiva Clear HENT: Yes: Atraumatic Neck: Yes: Supple Cardiovascular: Yes: S1, S2 Respiratory: Yes: CTA Bilaterally Gastrointestinal: Yes: Soft Genitourinary: Yes: Incontinence Musculoskeletal: Yes: Muscle Weakness Edema: No Neurological: Yes: Lethargy Labs: CBC, BMP 11/17/18 07:32 11/17/18 07:30 Problem List - Problems (1) MAGDALENE (acute kidney injury) Code(s): N17.9 - ACUTE KIDNEY FAILURE, UNSPECIFIED (2) SIRS (systemic inflammatory response syndrome) Code(s): R65.10 - SIRS OF NON-INFECTIOUS ORIGIN W/O ACUTE ORGAN DYSFUNCTION (3) Anemia Code(s): D64.9 - ANEMIA, UNSPECIFIED Qualifiers: Anemia type: iron deficiency (4) Esophageal cancer Code(s): C15.9 - MALIGNANT NEOPLASM OF ESOPHAGUS, UNSPECIFIED (5) HTN (hypertension) Code(s): I10 - ESSENTIAL (PRIMARY) HYPERTENSION Assessment/Plan Current Medications Generic Name Dose Route Start Last Admin Trade Name Freq PRN Reason Stop Dose Admin Albuterol/Ipratropium 1 amp 11/16/18 11:58 Duoneb - NEB Q8H PRN SHORTNESS OF BREATH Amlodipine Besylate 5 mg 11/17/18 10:00 11/19/18 09:32 Norvasc - PO 5 mg DAILY [facility] Administration Aripiprazole 2 mg 11/16/18 12:00 11/19/18 09:32 Abilify PO 2 mg DAILY [facility] Administration Potassium Chloride/Dextrose/Sod Cl 20 meq in 1,000 mls @ 75 mls/hr 11/16/18 16 :15 11/18/18 17:07 D5-1/2ns+20 Meq Kcl - IV Not Given ASDIR [facility] Levothyroxine Sodium 25 mcg 11/17/18 07:00 11/19/18 06:34 Synthroid - PO 25 mcg DAILY@0700 [facility] Administration Lorazepam 1 mg 11/17/18 12:33 Ativan Injection - IVPUSH Q6H PRN ANXIETY Mirtazapine 30 mg 11/16/18 21:38 11/18/18 21:02 Remeron - PO Not Given HS [facility] Ondansetron HCl 4 mg 11/17/18 11:30 11/19/18 09:32 Zofran Injection IVPUSH 4 mg Q4H-IV [facility] Administration Pantoprazole Sodium 40 mg 11/17/18 12:30 11/19/18 09:32 Protonix Iv IVPUSH 40 mg DAILY [facility] Administration Impression 1. MAGDALENE 2. hypokalemia 3. abd pain 4. hypothryoidism 5. malnutrition 6. esophageal cancer 7. copd Plan - family do not want labs checked - they do want fluids - discussed with nursing team - possible hospice care at [place] - will follow PRN
[2018-11-19] MEDS: D5-1/2NS+20 MEQ KCL - 20 MEQ/1,000 ML INFUS.BAG IV SCH ×2 (14:13→16:22)
[2018-11-19] MEDS: MIRTAZAPINE 15 MG TABLET (FP) PO SCH (21:04)
[2018-11-20] MEDS: ONDANSETRON 4 MG/2 ML VIAL IVPUSH SCH ×7 (03:05→21:20)
[2018-11-20] MEDS: D5-1/2NS+20 MEQ KCL - 20 MEQ/1,000 ML INFUS.BAG IV SCH ×2 (05:32→17:06)
[2018-11-20] MEDS: LEVOTHYROXINE NA 25 MCG TABLET (FP) PO SCH (06:00)
[2018-11-20] MEDS: ARIPiprazole 2 MG TABLET PO SCH (09:08)
[2018-11-20] MEDS: amLODIPine BESYLATE 5 MG TABLET (FP) PO SCH (09:08)
[2018-11-20] MEDS: PANTOPRAZOLE SODIUM 40 MG VIAL IVPUSH SCH (09:08)
[2018-11-20] MEDS ORDERED: LORazepam 2 MG/ML SDV VIAL IVPUSH PRN (15:12)
--- NOTE | 2018-11-20 15:49 | PN ---
Progress Note (short form) - Note Progress Note: comfortable. No new issues denies pain Vital Signs Temp 97.9 F 11/19/18 22:00 Pulse 66 11/20/18 10:00 Resp 18 11/20/18 10:00 BP 123/58 L 11/20/18 10:00 Pulse Ox 96 11/20/18 09:00 Intake & Output 11/19/18 11/20/18 11/20/18 23:59 11:59 23:59 Intake Total 521 367 9337 Balance 392 238 1231 Intake: IV 600 600 D5-1/2NS+20 MEQ KCL - 20 600 600 meq In 1,000 ml @ 75 mls/ hr IV ASDIR [facility] Rx#: [id number] Oral 0 100 200 Oral Supplement 200 Other: Voiding Method Incontinent Diaper Bowel Movement No No Active Medications Albuterol/Ipratropium (Duoneb -) 1 amp NEB Q8H PRN PRN Reason: SHORTNESS OF BREATH Amlodipine Besylate (Norvasc -) 5 mg PO DAILY [facility] Last Admin: 11/20/18 09:08 Dose: 5 mg Aripiprazole (Abilify) 2 mg PO DAILY [facility] Last Admin: 11/20/18 09:08 Dose: 2 mg Potassium Chloride/Dextrose/Sod Cl (D5-1/2ns+20 Meq Kcl -) 20 meq in 1,000 mls @ 75 mls/hr IV ASDIR [facility] Last Admin: 11/20/18 05:32 Dose: 75 mls/hr Levothyroxine Sodium (Synthroid -) 25 mcg PO DAILY@0700 [facility] Last Admin: 11/20/18 06:00 Dose: 25 mcg Lorazepam (Ativan Injection -) 1 mg IVPUSH Q6H PRN PRN Reason: ANXIETY Mirtazapine (Remeron -) 30 mg PO HS [facility] Last Admin: 11/19/18 21:04 Dose: 30 mg Ondansetron HCl (Zofran Injection) 4 mg IVPUSH Q4H-IV [facility] Last Admin: 11/20/18 13:46 Dose: Not Given Pantoprazole Sodium (Protonix Iv) 40 mg IVPUSH DAILY [facility] Last Admin: 11/20/18 09:08 Dose: 40 mg Physical exam awake and comfortable S1 S2 RRR Lungs decreased Abd-soft, No edema PLAN iv fluids pt is DNR/DNI and do not hospitalize keep pt comfortable IV antibiotics s/p PRBC Dr. Mason--spoke with niece-- HCP-- wishing for hospice care-- awaiting [facility] no blood draws discussed with RN also Problem List - Problems (1) Anemia requiring transfusions Code(s): D64.9 - ANEMIA, UNSPECIFIED (2) Esophageal cancer Code(s): C15.9 - MALIGNANT NEOPLASM OF ESOPHAGUS, UNSPECIFIED (3) Hypothyroidism Code(s): E03.9 - HYPOTHYROIDISM, UNSPECIFIED
[2018-11-20] MEDS: MIRTAZAPINE 15 MG TABLET (FP) PO SCH (21:20)
[2018-11-21] MEDS: ONDANSETRON 4 MG/2 ML VIAL IVPUSH SCH ×6 (01:14→21:05)
[2018-11-21] MEDS: LEVOTHYROXINE NA 25 MCG TABLET (FP) PO SCH (06:06)
[2018-11-21] MEDS: amLODIPine BESYLATE 5 MG TABLET (FP) PO SCH (09:22)
[2018-11-21] MEDS: ARIPiprazole 2 MG TABLET PO SCH (09:22)
[2018-11-21] MEDS: PANTOPRAZOLE SODIUM 40 MG VIAL IVPUSH SCH (09:22)
--- NOTE | 2018-11-21 11:40 | PN ---
Progress Note (short form) - Note Progress Note: comfortable. No new issues except pulled i/v and refusing to reinsert Vital Signs Temp 97.6 F 11/21/18 06:28 Pulse 73 11/21/18 10:00 Resp 20 11/21/18 10:00 BP 114/61 11/21/18 10:00 Pulse Ox 96 11/20/18 21:00 Intake & Output 11/20/18 11/20/18 11/21/18 11:59 23:59 11:59 Intake Total 100 1100 100 Balance 100 1100 100 Intake: IV 600 D5-1/2NS+20 MEQ KCL - 20 600 meq In 1,000 ml @ 75 mls/ hr IV ASDIR [facility] Rx#: [id number] Oral 100 300 100 Oral Supplement 200 Other: Voiding Method Diaper Incontinent Diaper # Unmeasured Voids Void 1 Bowel Movement No Active Medications Albuterol/Ipratropium (Duoneb -) 1 amp NEB Q8H PRN PRN Reason: SHORTNESS OF BREATH Amlodipine Besylate (Norvasc -) 5 mg PO DAILY [facility] Last Admin: 11/21/18 09:22 Dose: Not Given Aripiprazole (Abilify) 2 mg PO DAILY [facility] Last Admin: 11/21/18 09:22 Dose: Not Given Potassium Chloride/Dextrose/Sod Cl (D5-1/2ns+20 Meq Kcl -) 20 meq in 1,000 mls @ 75 mls/hr IV ASDIR [facility] Last Admin: 11/20/18 17:06 Dose: Not Given Levothyroxine Sodium (Synthroid -) 25 mcg PO DAILY@0700 [facility] Last Admin: 11/21/18 06:06 Dose: 25 mcg Lorazepam (Ativan Injection -) 1 mg IVPUSH Q6H PRN PRN Reason: ANXIETY Mirtazapine (Remeron -) 30 mg PO HS [facility] Last Admin: 11/20/18 21:20 Dose: Not Given Ondansetron HCl (Zofran Injection) 4 mg IVPUSH Q4H-IV [facility] Last Admin: 11/21/18 09:22 Dose: Not Given Pantoprazole Sodium (Protonix Iv) 40 mg IVPUSH DAILY [facility] Last Admin: 11/21/18 09:22 Dose: Not Given Physical exam awake and comfortable S1 S2 RRR Lungs decreased Abd-soft, No edema PLAN iv fluids-- hopefully pt will let insert line later pt is DNR/DNI and do not hospitalize keep pt comfortable s/p PRBC no blood draws discussed with RN also will follow Problem List - Problems (1) Anemia requiring transfusions Code(s): D64.9 - ANEMIA, UNSPECIFIED (2) Esophageal cancer Code(s): C15.9 - MALIGNANT NEOPLASM OF ESOPHAGUS, UNSPECIFIED (3) Hypothyroidism Code(s): E03.9 - HYPOTHYROIDISM, UNSPECIFIED
[2018-11-21] MEDS: D5-1/2NS+20 MEQ KCL - 20 MEQ/1,000 ML INFUS.BAG IV SCH (16:59)
[2018-11-21] MEDS: MIRTAZAPINE 15 MG TABLET (FP) PO SCH (21:05)
[2018-11-22] MEDS: ONDANSETRON 4 MG/2 ML VIAL IVPUSH SCH ×6 (03:00→21:09)
[2018-11-22] MEDS: LEVOTHYROXINE NA 25 MCG TABLET (FP) PO SCH (06:59)
[2018-11-22] MEDS: amLODIPine BESYLATE 5 MG TABLET (FP) PO SCH (10:25)
[2018-11-22] MEDS: ARIPiprazole 2 MG TABLET PO SCH (10:25)
[2018-11-22] MEDS: PANTOPRAZOLE SODIUM 40 MG VIAL IVPUSH SCH (10:25)
--- NOTE | 2018-11-22 11:25 | PN ---
Progress Note (short form) - Note Progress Note: pt seen/ examined. Comfortable refuses to insert I/V Vital Signs Temp 97.8 F 11/22/18 06:05 Pulse 69 11/22/18 06:05 Resp 18 11/22/18 06:05 BP 138/73 11/22/18 06:05 Pulse Ox 96 11/20/18 21:00 Intake & Output 11/21/18 11/21/18 11/22/18 11:59 23:59 11:59 Intake Total 100 837 200 Balance 100 837 200 Intake: IV 0 D5-1/2NS+20 MEQ KCL - 20 0 meq In 1,000 ml @ 75 mls/ hr IV ASDIR [facility] Rx#: [id number] Oral 100 600 200 Oral Supplement 237 Other: Voiding Method Diaper Diaper Diaper # Unmeasured Voids Void 1 Bowel Movement No Active Medications Amlodipine Besylate (Norvasc -) 5 mg PO DAILY [facility] Last Admin: 11/21/18 09:22 Dose: Not Given Aripiprazole (Abilify) 2 mg PO DAILY [facility] Last Admin: 11/21/18 09:22 Dose: Not Given Potassium Chloride/Dextrose/Sod Cl (D5-1/2ns+20 Meq Kcl -) 20 meq in 1,000 mls @ 75 mls/hr IV ASDIR [facility] Last Admin: 11/21/18 16:59 Dose: Not Given Levothyroxine Sodium (Synthroid -) 25 mcg PO DAILY@0700 [facility] Last Admin: 11/22/18 06:59 Dose: 25 mcg Lorazepam (Ativan Injection -) 1 mg IVPUSH Q6H PRN PRN Reason: ANXIETY Mirtazapine (Remeron -) 30 mg PO HS [facility] Last Admin: 11/21/18 21:05 Dose: Not Given Ondansetron HCl (Zofran Injection) 4 mg IVPUSH Q4H-IV [facility] Last Admin: 11/22/18 06:06 Dose: Not Given Pantoprazole Sodium (Protonix Iv) 40 mg IVPUSH DAILY [facility] Last Admin: 11/21/18 09:22 Dose: Not Given CBC, BMP 11/17/18 07:32 11/17/18 07:30 Physical exam comfortable S1 S2 RRR Lungs decreased Abd-soft, No edema PLAN iv fluids--If pt will let insert line later pt is DNR/DNI and do not hospitalize keep pt comfortable s/p PRBC no blood draws discussed with RN also will follow awaiting transfer to [facility]. Problem List - Problems (1) Anemia requiring transfusions Code(s): D64.9 - ANEMIA, UNSPECIFIED (2) Esophageal cancer Code(s): C15.9 - MALIGNANT NEOPLASM OF ESOPHAGUS, UNSPECIFIED (3) Hypothyroidism Code(s): E03.9 - HYPOTHYROIDISM, UNSPECIFIED
[2018-11-22] MEDS: D5-1/2NS+20 MEQ KCL - 20 MEQ/1,000 ML INFUS.BAG IV SCH (17:11)
[2018-11-22] MEDS: MIRTAZAPINE 15 MG TABLET (FP) PO SCH (21:09)
[2018-11-23] MEDS: ONDANSETRON 4 MG/2 ML VIAL IVPUSH SCH ×6 (01:46→21:01)
[2018-11-23] MEDS: LEVOTHYROXINE NA 25 MCG TABLET (FP) PO SCH (06:18)
[2018-11-23] MEDS: ARIPiprazole 2 MG TABLET PO SCH (09:21)
[2018-11-23] MEDS: PANTOPRAZOLE SODIUM 40 MG VIAL IVPUSH SCH (09:22)
[2018-11-23] MEDS: amLODIPine BESYLATE 5 MG TABLET (FP) PO SCH (09:22)
--- NOTE | 2018-11-23 12:01 | PN ---
Progress Note (short form) - Note Progress Note: no vomiting no distress Vital Signs - 24 hr 11/22/18 11/22/18 11/22/18 14:50 20:47 21:00 Temperature 98.8 F 98.1 F Pulse Rate 67 81 Respiratory 18 18 Rate Blood Pressure 123/65 117/60 O2 Sat by Pulse 95 Oximetry (%) 11/23/18 11/23/18 11/23/18 06:17 09:00 10:00 Temperature 98.1 F 98.2 F Pulse Rate 74 65 Respiratory 18 18 Rate Blood Pressure 113/72 119/59 L O2 Sat by Pulse 96 Oximetry (%) Current Medications Generic Name Dose Route Start Last Admin Trade Name Freq PRN Reason Stop Dose Admin Amlodipine Besylate 5 mg 11/17/18 10:00 11/23/18 09:22 Norvasc - PO Not Given DAILY [facility] Aripiprazole 2 mg 11/16/18 12:00 11/23/18 09:21 Abilify PO Not Given DAILY [facility] Potassium Chloride/Dextrose/Sod Cl 20 meq in 1,000 mls @ 75 mls/hr 11/16/18 16 :15 11/22/18 17:11 D5-1/2ns+20 Meq Kcl - IV Not Given ASDIR [facility] Levothyroxine Sodium 25 mcg 11/17/18 07:00 11/23/18 06:18 Synthroid - PO Not Given DAILY@0700 [facility] Lorazepam 1 mg 11/20/18 15:12 Ativan Injection - IVPUSH Q6H PRN ANXIETY Mirtazapine 30 mg 11/16/18 21:38 11/22/18 21:09 Remeron - PO Not Given HS [facility] Ondansetron HCl 4 mg 11/17/18 11:30 11/23/18 09:22 Zofran Injection IVPUSH Not Given Q4H-IV [facility] Pantoprazole Sodium 40 mg 11/17/18 12:30 11/23/18 09:22 Protonix Iv IVPUSH Not Given DAILY [facility] S1 S2 RRR Lungs decreased Abd-soft, NT No edema PLAN iv fluids encourage PO pt is DNR/DNI and do not hospitalize keep pt comfortable dc all iv she is refusing iv s/p PRBC spoke with niece-- HCP-- wishing for hospice care-- awaiting [facility]/ [facility] PPD ordered no blood draws continue meds for now Microbiology 11/16/18 01:26 Urine Culture - Final Urine - Urine - Catheterized Streptococcus Viridans 11/15/18 20:21 Blood Culture - Preliminary Blood - Peripheral Venous NO GROWTH OBTAINED AFTER 24 HOURS, INCUBATION TO CONTINUE FOR 4 DAYS. 11/15/18 20:21 Blood Culture - Preliminary Blood - Peripheral Venous NO GROWTH OBTAINED AFTER 24 HOURS, INCUBATION TO CONTINUE FOR 4 DAYS. Problem List - Problems (1) SIRS (systemic inflammatory response syndrome) Code(s): R65.10 - SIRS OF NON-INFECTIOUS ORIGIN W/O ACUTE ORGAN DYSFUNCTION (2) Anemia Code(s): D64.9 - ANEMIA, UNSPECIFIED Qualifiers: Anemia type: iron deficiency (3) Esophageal cancer Code(s): C15.9 - MALIGNANT NEOPLASM OF ESOPHAGUS, UNSPECIFIED (4) HTN (hypertension) Code(s): I10 - ESSENTIAL (PRIMARY) HYPERTENSION (5) Hypothyroidism Code(s): E03.9 - HYPOTHYROIDISM, UNSPECIFIED (6) Malnutrition Code(s): E46 - UNSPECIFIED PROTEIN-CALORIE MALNUTRITION
[2018-11-23] MEDS ORDERED: TUBERCULIN PPD 5 TU/0.1ML SYRINGE (IN PATIENT USE ONLY) ID ONE (12:15)
[2018-11-23] MEDS: D5-1/2NS+20 MEQ KCL - 20 MEQ/1,000 ML INFUS.BAG IV SCH (17:06)
[2018-11-23] MEDS: MIRTAZAPINE 15 MG TABLET (FP) PO SCH (21:00)
[2018-11-24] MEDS: ONDANSETRON 4 MG/2 ML VIAL IVPUSH SCH ×6 (01:20→21:16)
[2018-11-24] MEDS: LEVOTHYROXINE NA 25 MCG TABLET (FP) PO SCH (06:03)
[2018-11-24] MEDS: amLODIPine BESYLATE 5 MG TABLET (FP) PO SCH (11:09)
--- NOTE | 2018-11-24 11:31 | PN ---
Progress Note (short form) - Note Progress Note: spitting out food does not want iv no distress Current Medications Generic Name Dose Route Start Last Admin Trade Name Marissa PRN Reason Stop Dose Admin Amlodipine Besylate 5 mg 11/17/18 10:00 11/24/18 11:09 Norvasc - PO Not Given DAILY [facility] Aripiprazole 2 mg 11/16/18 12:00 11/23/18 09:21 Abilify PO Not Given DAILY [facility] Potassium Chloride/Dextrose/Sod Cl 20 meq in 1,000 mls @ 75 mls/hr 11/16/18 16 :15 11/23/18 17:06 D5-1/2ns+20 Meq Kcl - IV Not Given ASDIR [facility] Levothyroxine Sodium 25 mcg 11/17/18 07:00 11/24/18 06:03 Synthroid - PO Not Given DAILY@0700 [facility] Lorazepam 1 mg 11/20/18 15:12 Ativan Injection - IVPUSH Q6H PRN ANXIETY Mirtazapine 30 mg 11/16/18 21:38 11/23/18 21:00 Remeron - PO Not Given HS [facility] Ondansetron HCl 4 mg 11/17/18 11:30 11/24/18 11:09 Zofran Injection IVPUSH Not Given Q4H-IV [facility] S1 S2 RRR Lungs decreased Abd-soft, NT No edema PLAN iv fluids- dc encourage PO-->liquids pt is DNR/DNI and do not hospitalize keep pt comfortable dc all iv she is refusing iv s/p PRBC spoke with niece-- HCP-- wishing for hospice care-- awaiting [facility]/ [facility] PPD ordered no blood draws continue meds for now pt can not go to [facility] as she is privately paying for stay-- family does not want her to go there- also the [place] does not provide hospice services Microbiology 11/16/18 01:26 Urine Culture - Final Urine - Urine - Catheterized Streptococcus Viridans 11/15/18 20:21 Blood Culture - Preliminary Blood - Peripheral Venous NO GROWTH OBTAINED AFTER 24 HOURS, INCUBATION TO CONTINUE FOR 4 DAYS. 11/15/18 20:21 Blood Culture - Preliminary Blood - Peripheral Venous NO GROWTH OBTAINED AFTER 24 HOURS, INCUBATION TO CONTINUE FOR 4 DAYS. Problem List - Problems (1) SIRS (systemic inflammatory response syndrome) Code(s): R65.10 - SIRS OF NON-INFECTIOUS ORIGIN W/O ACUTE ORGAN DYSFUNCTION (2) Anemia Code(s): D64.9 - ANEMIA, UNSPECIFIED Qualifiers: Anemia type: iron deficiency (3) Esophageal cancer Code(s): C15.9 - MALIGNANT NEOPLASM OF ESOPHAGUS, UNSPECIFIED (4) HTN (hypertension) Code(s): I10 - ESSENTIAL (PRIMARY) HYPERTENSION (5) Hypothyroidism Code(s): E03.9 - HYPOTHYROIDISM, UNSPECIFIED (6) Malnutrition Code(s): E46 - UNSPECIFIED PROTEIN-CALORIE MALNUTRITION
[2018-11-24] MEDS: ARIPiprazole 2 MG TABLET PO SCH (13:32)
[2018-11-24] MEDS: HALOPERIDOL LACTATE 2 MG/ML UNIT-DOSE CUPS PO PRN (15:31)
[2018-11-24] MEDS: MIRTAZAPINE 15 MG TABLET (FP) PO SCH (21:16)
[2018-11-25] MEDS: ONDANSETRON 4 MG/2 ML VIAL IVPUSH SCH ×6 (02:43→21:10)
[2018-11-25] MEDS: LEVOTHYROXINE NA 25 MCG TABLET (FP) PO SCH (06:15)
[2018-11-25] MEDS: ARIPiprazole 2 MG TABLET PO SCH (09:50)
[2018-11-25] MEDS: amLODIPine BESYLATE 5 MG TABLET (FP) PO SCH (09:50)
[2018-11-25] MEDS: HALOPERIDOL LACTATE 2 MG/ML UNIT-DOSE CUPS PO PRN (10:27)
--- NOTE | 2018-11-25 12:38 | PN ---
Progress Note (short form) - Note Progress Note: spitting out food does not want iv no distress Vital Signs - 24 hr 11/24/18 11/24/18 11/24/18 14:46 18:00 20:53 Temperature 98.1 F 98.5 F 98.3 F Pulse Rate 70 84 71 Respiratory 18 18 16 Rate Blood Pressure 120/57 L 96/62 119/69 O2 Sat by Pulse Oximetry (%) 11/24/18 11/25/18 11/25/18 21:00 06:04 09:00 Temperature 97.9 F Pulse Rate 71 Respiratory 16 18 Rate Blood Pressure 114/71 O2 Sat by Pulse 96 98 Oximetry (%) 11/25/18 10:00 Temperature 97.6 F Pulse Rate 69 Respiratory 18 Rate Blood Pressure 123/67 O2 Sat by Pulse Oximetry (%) Current Medications Generic Name Dose Route Start Last Admin Trade Name Freq PRN Reason Stop Dose Admin Amlodipine Besylate 5 mg 11/24/18 11:32 11/25/18 09:50 Norvasc - PO Not Given DAILY PRICILA Aripiprazole 2 mg 11/16/18 12:00 11/25/18 09:50 Abilify PO Not Given DAILY PRICILA Haloperidol 5 mg 11/24/18 11:48 11/25/18 10:27 Haldol Liquid - PO 5 mg TID PRN Administration NAUSEA AND/OR VOMITING Levothyroxine Sodium 25 mcg 11/17/18 07:00 11/25/18 06:15 Synthroid - PO 25 mcg DAILY@0700 PRICILA Administration Lorazepam 1 mg 11/20/18 15:12 Ativan Injection - IVPUSH Q6H PRN ANXIETY Mirtazapine 30 mg 11/16/18 21:38 11/24/18 21:16 Remeron - PO Not Given HS PRICILA Ondansetron HCl 4 mg 11/17/18 11:30 11/25/18 09:51 Zofran Injection IVPUSH Not Given Q4H-IV PRICILA S1 S2 RRR Lungs decreased Abd-soft, NT No edema PLAN iv fluids- dc encourage PO-->liquids pt is DNR/DNI and do not hospitalize keep pt comfortable dc all iv she is refusing iv s/p PRBC spoke with niece-- HCP-- wishing for hospice care-- awaiting [facility]/ [facility] PPD ordered no blood draws continue meds for now pt can not go to [facility] as she is privately paying for stay-- family does not want her to go there- also the [facility] does not provide hospice services Microbiology 11/16/18 01:26 Urine Culture - Final Urine - Urine - Catheterized Streptococcus Viridans 11/15/18 20:21 Blood Culture - Preliminary Blood - Peripheral Venous NO GROWTH OBTAINED AFTER 24 HOURS, INCUBATION TO CONTINUE FOR 4 DAYS. 11/15/18 20:21 Blood Culture - Preliminary Blood - Peripheral Venous NO GROWTH OBTAINED AFTER 24 HOURS, INCUBATION TO CONTINUE FOR 4 DAYS. Problem List - Problems (1) SIRS (systemic inflammatory response syndrome) Code(s): R65.10 - SIRS OF NON-INFECTIOUS ORIGIN W/O ACUTE ORGAN DYSFUNCTION (2) Anemia Code(s): D64.9 - ANEMIA, UNSPECIFIED Qualifiers: Anemia type: iron deficiency (3) Esophageal cancer Code(s): C15.9 - MALIGNANT NEOPLASM OF ESOPHAGUS, UNSPECIFIED (4) HTN (hypertension) Code(s): I10 - ESSENTIAL (PRIMARY) HYPERTENSION (5) Hypothyroidism Code(s): E03.9 - HYPOTHYROIDISM, UNSPECIFIED (6) Malnutrition Code(s): E46 - UNSPECIFIED PROTEIN-CALORIE MALNUTRITION
[2018-11-25] MEDS: MIRTAZAPINE 15 MG TABLET (FP) PO SCH (21:10)
[2018-11-26] MEDS: ONDANSETRON 4 MG/2 ML VIAL IVPUSH SCH ×5 (01:06→17:08)
[2018-11-26] MEDS: LEVOTHYROXINE NA 25 MCG TABLET (FP) PO SCH (06:04)
[2018-11-26 09:37] VITALS: PULSE 71
[2018-11-26] MEDS: ARIPiprazole 2 MG TABLET PO SCH (09:40)
[2018-11-26] MEDS: amLODIPine BESYLATE 5 MG TABLET (FP) PO SCH (09:40)
[2018-11-26] MEDS: HALOPERIDOL LACTATE 2 MG/ML UNIT-DOSE CUPS PO PRN (10:41)
--- NOTE | 2018-11-26 12:34 | DS ---
Physical Examination Vital Signs: Vital Signs Temperature 98.0 F 11/26/18 07:45 Pulse Rate 71 11/26/18 07:45 Respiratory Rate 18 11/26/18 07:45 Blood Pressure 144/72 11/26/18 07:45 O2 Sat by Pulse Oximetry (%) 96 11/26/18 09:00 Findings/Remarks: see today progress note Labs: CBC, BMP 11/17/18 07:32 11/17/18 07:30 Discharge Summary Problems reviewed: Yes Reason For Visit: SYSTEMIC INFLAMMATORY RESPONSE SYNDROME (SIRS) Current Active Problems MAGDALENE (acute kidney injury) (Acute) Malnutrition (Acute) SIRS (systemic inflammatory response syndrome) (Acute) Hospital Course: comfort care transfer to [facility] Condition: Stable - Instructions Disposition: [facility] - Home Medications Comprehensive Discharge Medication List: Ambulatory Orders Amlodipine Besylate 5 mg PO DAILY 06/09/18 Docusate Sodium [Colace] 300 mg PO HS 06/09/18 Levothyroxine [Synthroid -] 25 mcg PO DAILY 06/09/18 Mirtazapine [Remeron -] 30 mg PO DAILY 06/09/18 Polyethylene Glycol 3350 [Miralax 119 gm Btl -] 17 g PO BID 06/09/18 Aripiprazole [Abilify -] 2 mg PO DAILY 10/25/18 Omeprazole Magnesium [Prilosec Otc] 20 mg PO DAILY 10/25/18 Bacitracin - [Bacitracin Topical Ointment -] 1 applic TP DAILY 11/16/18 Guaifenesin [Mucinex] 600 mg PO QID 11/16/18 Metoclopramide HCl [Reglan] 5 mg PO BID 11/16/18 Haloperidol Liquid [Haldol Liquid -] 5 mg PO TID PRN cup 11/26/18 LORazepam [Ativan Injection -] 1 mg IVPUSH Q6H PRN vial MDD 2 11/26/18 Ondansetron Injection [Zofran Injection] 4 mg IVPUSH Q4H-IV vial 11/26/18
--- NOTE | 2018-11-26 12:34 | PN ---
Progress Note (short form) - Note Progress Note: pt seen/ examined comfortable Vital Signs Temp 98.0 F 11/26/18 07:45 Pulse 71 11/26/18 07:45 Resp 18 11/26/18 07:45 BP 144/72 11/26/18 07:45 Pulse Ox 96 11/26/18 09:00 Intake & Output 11/25/18 11/26/18 11/26/18 23:59 11:59 23:59 Intake Total 0 287 Output Total 1000 Balance -1000 287 Intake: IVPB 0 Oral 50 Oral Supplement 237 Output: Urine 1000 Void 1000 Other: Voiding Method Diaper Diaper Bowel Movement Yes # Bowel Movements 1 Active Medications Amlodipine Besylate (Norvasc -) 5 mg PO DAILY [facility] Last Admin: 11/26/18 09:40 Dose: Not Given Aripiprazole (Abilify) 2 mg PO DAILY [facility] Last Admin: 11/26/18 09:40 Dose: Not Given Haloperidol (Haldol Liquid -) 5 mg PO TID PRN PRN Reason: NAUSEA AND/OR VOMITING Last Admin: 11/26/18 10:41 Dose: 5 mg Levothyroxine Sodium (Synthroid -) 25 mcg PO DAILY@0700 [facility] Last Admin: 11/26/18 06:04 Dose: Not Given Mirtazapine (Remeron -) 30 mg PO HS [facility] Last Admin: 11/25/18 21:10 Dose: Not Given Ondansetron HCl (Zofran Injection) 4 mg IVPUSH Q4H-IV PRICILA Last Admin: 11/26/18 09:40 Dose: Not Given Physical Awake/ comfortable S1 S2 RRR Lungs decreased Abd-soft, NT No edema PLAN comfort care awaiting transfer to [facility] Will follow d/w Rn also Problem List - Problems (1) Anemia requiring transfusions Code(s): D64.9 - ANEMIA, UNSPECIFIED (2) Esophageal cancer Code(s): C15.9 - MALIGNANT NEOPLASM OF ESOPHAGUS, UNSPECIFIED (3) Hypothyroidism Code(s): E03.9 - HYPOTHYROIDISM, UNSPECIFIED
[2018-11-26 17:12] VITALS: BP 91/60; TEMP 98.3
== END 2018-11-26 17:33 | disposition hospice, inpatient (51) | DRG 871 ==
LOC: JER 13:59 → JERBED 11-16 03:55 → J7W 11-16 06:22
PROVIDERS: ADMIT Internal Medicine; ATTEND Internal Medicine
DX: A41.89 Other specified sepsis (principal); E43 Unspecified severe protein-calorie malnutrition; N17.9 Acute kidney failure, unspecified; Z68.1 Body mass index [BMI] 19.9 or less, adult; C15.9 Malignant neoplasm of esophagus, unspecified; E87.2 Acidosis; R64 Cachexia; R65.10 Systemic inflammatory response syndrome (SIRS) of non-infectious origin without acute organ dysfunction; D64.9 Anemia, unspecified; E03.9 Hypothyroidism, unspecified; I10 Essential (primary) hypertension; E87.6 Hypokalemia; J44.9 Chronic obstructive pulmonary disease, unspecified; R10.9 Unspecified abdominal pain; D72.829 Elevated white blood cell count, unspecified; G30.9 Alzheimer's disease, unspecified; F02.80 Dementia in other diseases classified elsewhere, unspecified severity, without behavioral disturbance, psychotic disturbance, mood disturbance, and anxiety; K21.9 Gastro-esophageal reflux disease without esophagitis; E88.09 Other disorders of plasma-protein metabolism, not elsewhere classified; E86.0 Dehydration
CPT/HCPCS: 36415; 36430; 36511; 71045-TC-FY; 71250-TC; 74176-TC; 80053; 81003; 82550; 83605; 83735; 84484; 85025; 86850; 86900; 86901; 86922; 87040; 87077; 87086; 93005; 93010; 97116-GP; 97161-GP; 99283-25; J1644; J7030; P9038; P9058